=== PATIENT | female | born 1995 | race Caucasian/White ===

== ENCOUNTER 2024-03-18 09:02 | Outpatient (OUT) | payer BC, SELFPAY ==
--- NOTE | 2024-03-18 09:05 | US_ITS ---
[address] [address] Patient Name: FLAKITO TRIVEDI MRN: [id number] date: 1995 Sex: F Assigned Patient Location: [facility] Current Patient Location: [facility] Accession/Order Number: [id number] Exam Date: 03/18/2024 09:05 Report Date: 03/18/2024 09:51 At the request of: BRANDON BOB Procedure: US OB transvaginal EXAMINATION: US OB transvaginal HISTORY: MISSED MENSES COMPARISON: No relevant comparison available. FINDINGS: GESTATIONAL SAC: Present and normal appearing. YOLK SAC: Present and normal appearing. POLE: Present and normal appearing. CARDIAC: Present. UTERUS: Normal size and appearance. OVARIES: Right: Corpus lutein cyst. Left: Normal. CERVIX: 4.6 cm in length and closed. CUL-DE-SAC: Normal. OTHER: None. AGE BY LMP: 8 weeks 1 day SINGH BY LMP: 10/27/2024 AGE BY US CRL: 7 weeks 6 days SINGH BY US CRL: 10/29/2024 US/US OB transvaginal IMPRESSION: 1. Single live intrauterine . Electronically authenticated by: EMILY HANNA Date: 03/18/2024 09:51
== END 2024-03-18 09:03 | disposition home or self-care (01) ==
LOC: NOMS 09:02
PROVIDERS: PCP Family Medicine; Visit Provider Obstetrics & Gynecology
DX: Z34.91 Encounter for supervision of normal pregnancy, unspecified, first trimester (principal); Z3A.08 8 weeks gestation of pregnancy; N92.6 Irregular menstruation, unspecified
CPT/HCPCS: 76817

== ENCOUNTER 2024-05-13 15:11 | Outpatient (OUT) | payer BC, SELFPAY ==
--- OUTSIDE RECORDS SUMMARY | 2024-05-13 15:16 | XMS_ITS | CCD ---
Author Organization [facility] Care Team Providers Care Broke Beater Name Role Phone DR ELEANOR WILEY Primary Care Unavailable NATALIIA INIGUEZ Admitting Unavailable NATALIIA INIGUEZ Consulting Unavailable NATALIIA INIGUEZ Attending Unavailable KRISTEN, DR BEEBE Attending Unavailable DR ELEANOR WILEY Primary Care Unavailable DR CONCEPCIÓN PETERSON Admitting Unavailable DR CONCEPCIÓN PETERSON Consulting Unavailable BILL WORRELL Referring Unavailable RENETTA COLLAZO Attending Unavailable BILL WORRELL Attending Unavailable ISAIAH BANERJEE Attending Unavailable BRANDON BOB Attending Unavailable Problems Active Problems Problem Classification Problem Date Documented Date Episodic/Chronic Immunizations and screening for infectious disease (1 source) Encounter for screening for human papillomavirus (HPV); Translations: [ENC SCREENING HUMAN PAPILLOMAVIRUS] Onset: 11-13-2022 Episodic Other screening for suspected conditions (not mental disorders or infectious disease) (4 sources) Encounter for screening for malignant neoplasm of cervix; Translations: [ENC SCREENING MALIG NEOPLASM CERV] Onset: 11-07-2022 Episodic Unclassified (1 source) Low back pain, unspecified; Translations: [Low back pain, unspecified] Onset: 08-20-2022 Past or Other Problems Problem Classification Problem Date Documented Da te Episodic/Chronic Abdominal pain (4 sources) Unspecified abdominal pain; Translations: [UNSPECIFIED ABDOMINAL PAIN] Onset: 03-15-2022 Episodic Spondylosis; intervertebral disc disorders; other back problems (4 sources) Radiculopathy, lumbar region; Translations: [Sacrococcygeal disorders, not elsewhere classified] Onset: 08-22-2022 Episodic Unclassified (1 source) Low back pain, unspecified; Translations: [Low back pain, unspecified] Onset: 08-20-2022 Results Test Name Value Interpretation Reference Range Facility Refillon 12-02-2022 Refill [id number] Joan Stone 1995 F Date Provider Department Center 12/02/2022 ISAIAH SALAZAR MP [facility] Family History Family Status - Relation Status Age at Mother Alive Father Alive Reason for Visit and Comments: Med Refill [[id number]] Normal [facility] PAP ACOG PANEL 2: 21 to 29on 11-12-2022 . . Normal [facility] Comment on above: Performed By: #### [id number] #### [facility] [address] [address] [address] Asher Renee Age Gdln ACOG Testing 21-29 [facility] Comment on above: Performed By: #### 4 [id number] #### [facility] [address] [place] [address] Dr. Asher Renee DIAGNOSIS: Comment [facility] Comment on above: Result Comment: NEGA TIVE FOR INTRAEPITHELIAL LESION OR MALIGNANCY. Performed By: #### 4 [id number] #### [facility] [address] [place] [address] Dr. Asher Renee Methodology: Comment [facility] Comment on above: Result Comment: This liquid based ThinPrep(R) pap test was screened with the use of an image guided system. Performed By: #### 4 [id number] #### [facility] [address] [place] [address] Dr. Asher Renee Note: Comment [facility] Comment on above: Result Comment: The Pap smear is a screening test designed to aid in the detection of premalignant and malignant conditions of the uterine cervix. It is not a diagnostic procedure and should not be used as the sole means of detecting cervical cancer. Both false-positive and false-negative reports do occur. . Performed By: #### 4 [id number] #### [facility] [address] [place] [address] Dr. Asher Renee Performed by: Comment [facility] Comment on above: Result Comment: Josephine Santiago, Customer Service Trainer (ASCP) Performed By: #### 4 [id number] #### [facility] [address] [place] [address] Dr. Asher Renee Reflex Criteria: Comment Normal [facility] Comment on above: Result Comment: The HPV DNA reflex criteria were not met with this specimen result therefore, no HPV testing was performed. . Performed By: #### 4 [id number] #### [facility] [address] [address] [address] Asher Renee Specimen adequacy: Comment Normal [facility] Comment on above: Result Comment: Sati sfactory for evaluation. No endocervical component is identified. Performed By: #### 4 [id number] #### [facility] [address] [address] [address] Asher Renee 36on 10-28-2022 37 Approving, but needs appt for additional refills. Normal [facility] Follow-Upon 10-07-2022 Follow-Up [id number] Joan Stone 1995 F Provider Department Center 10/07/2022 ISAIAH SALAZAR MP Family History Family Status - Relation Status Age at Mother Alive Father Alive Level of Service:01819 [place] OFFICE/OUTPATIENT ESTABLISHED LOW MDM 20-29 MIN Reason for Visit and Comments: Follow-up [234537] - Pt here for low back pain [facility] 36on 09-22-2022 37 Approving, but needs appt for additional refills. Normal [facility] Procedure Visiton 08-22-2022 Procedure Visit [id number] Joan Stone 1995 Provider Department Center 08/22/2022 RENETTA CHÁVEZ MP Family History Family Status - Relation Status Age at Mother Alive Father Alive Level of Service:22883 [place] OFFICE/OUTPATIENT NEW LOW MDM 30-44 MINUTES (25) Reason for Visit and Comments: Pain [136] - Left SI joint CSI USG Normal [facility] Office Visiton 08-20-2022 Follow-up visit [id number] Joan Stone 1995 F Date Provider Department Center 08/20/2022 260-BILL WORRELL MP Chart Close Cosign Required by: Bill Worrell MD[[id number]] No family history on file Level of Service:89152 [place] OFFICE/OUTPATIENT NEW LOW MDM 30-44 MINUTES (GC) Normal [facility] US OB 1ST Trimesteron 2021 OB 1ST Trimester CLINICAL HISTORY: Pelvic pain. Positive test. Positive beta-hCG. COMPARISON: None available TECHNIQUE: Transabdominal and transvaginal evaluation of the pelvis was performed FINDINGS: Uterus measures 8.6 x 5.2 x 3.4 cm. The endometrium measures 7 mm. No gestational sac, yolk sac, or pole identified. Right ovary is not visualized secondary to bowel gas. The left ovary measures 6 x 5.6 x 4.6 cm. Blood flow is identified of the left ovary. Anechoic area of the left ovary measures 4.3 x 4 x 3.8 cm and is most compatible with a simple ovarian cyst. A small amount of free fluid is present in the pelvis. No adnexal mass. IMPRESSION: No gestational sac identified. Serial beta hCG monitoring and follow-up ultrasound recommended as ectopic is not excluded. 4.3 cm left ovarian cyst. The right ovary is not visualized. Report reported and signed by Ruy Luo on 03/17/2022 1627 Normal [facility] Engine Room Operator CBC AUTO DIFFon 03-15-2022 BASO # 0.0 103/ul Normal 0.0-0.1 [facility] Comment on above: Performed By: #### C BC #### [facility] [address] [address] [address] Asher Renee Basophils/100 WBC (Bld) 0.5 % Normal 0.2-2.[address] [facility] Comment on above: Performed By: #### C BC #### [facility] [address] [address] [address] Asher Renee EO # 0.1 103/ul Normal 0.0-0.[address] [facility] Comment on above: Performed By: #### C BC #### [facility] [address] [address] [address] Asher Renee Eosinophils/100 WBC (Bld) 1.1 % Normal 0.9-7.0 [facility] Comment on above: Performed By: #### C BC #### [facility] [address] [place] [address] Dr. Asher Renee Erythrocyte distribution width (RBC) [Ratio] 12.5 % Normal 11.0-15.0 [facility] Comment on above: Performed By: #### C BC #### [facility] [address] [place] [address] Dr. Asher Renee Hematocrit (Bld) [Volume fraction] 38.8 % Normal 36.0-48.0 [facility] Comment on above: Performed By: #### C BC #### [facility] [address] [place] [address] Dr. Asher Renee Hemoglobin (Bld) [Mass/Vol] 12.8 g/dL Normal 12.0-16.0 [facility] Comment on above: Performed By: #### C BC #### [facility] [address] [place] [address] Dr. Asher Renee IG # 0.02 10e3/ul Normal 0.00-0.03 [facility] Comment on above: Performed By: #### C BC #### [facility] [address] [place] [address] Dr. Asher Renee IG % 0.3 % Normal 0.0-0.5 [facility] Comment on above: Performed By: #### C BC #### [facility] [address] [place] [address] Dr. Asher Renee LYMPH # 1.7 103/ul Normal 1.2-3.[address] [facility] Comment on above: Performed By: #### C BC #### [facility] [address] [place] [address] Dr. Asher Renee Lymphocytes/100 WBC (Bld) 26.2 % Normal 20.5-60.[address] [facility] Comment on above: Performed By: #### C BC #### [facility] [address] [place] [address] Dr. Asher Renee MANUAL DIFF REQ NO Normal [facility] Comment on above: Performed By: #### C BC #### [facility] [address] [place] [address] Dr. Asher Renee MCH (RBC) [Entitic mass] 30.5 pg Normal 26.7-34.0 [facility] Comment on above: Performed By: #### C BC #### [facility] [address] [place] [address] Dr. Asher Renee MCHC (RBC) [Mass/Vol] 33.0 g/dL Normal 29.9-35.2 [facility] Comment on above: Performed By: #### C BC #### [facility] [address] [place] [address] Dr. Asher Renee MCV (RBC) [Entitic vol] 92.4 fL Normal 81.0-99.0 [facility] Comment on above: Performed By: #### C BC #### [facility] [address] [place] [address] Dr. Asher Renee MONO # 0.5 103/ul Normal 0.3-0.8 [facility] Comment on above: Performed By: #### C BC #### [facility] [address] [place] [address] Dr. Asher Renee Monocytes/100 WBC (Bld) 7.4 % Normal 1.7-12.0 [facility] Comment on above: Performed By: #### C BC #### [facility] [address] [place] [address] Dr. Asher Renee NEUT # 4.2 103/ul Normal 1.4-6.5 [facility] Comment on above: Performed By: #### C BC #### [facility] [address] [place] [address] Dr. Asher Renee Neutrophils/100 WBC (Bld) 64.5 % Normal 43.0-75.[address] [facility] Comment on above: Performed By: #### C BC #### [facility] [address] [place] [address] Dr. Asher Renee Platelet mean volume (Bld) [Entitic vol] 10.8 fL Normal 9.5-13.5 [facility] Comment on above: Performed By: #### C BC #### [facility] [address] [place] [address] Dr. Asher Renee PLT 213 103/ul Normal 150-[address] [facility] Comment on above: Performed By: #### C BC #### [facility] [address] [place] [address] Dr. Asher Renee RBC 4.20 106/ul Normal 4.20-5.40 [facility] Comment on above: Performed By: #### C BC #### [facility] [address] [place] [address] Dr. Asher Renee WBC 6.5 103/ul Normal 4.0-11.0 [facility] Comment on above: Performed By: #### C BC #### [facility] [address] [place] [address] Dr. Asher Renee PREG QUANT HCGon 03-15-2022 HCG QUANT 58 mIU/mL Normal [facility] Comment on above: Performed By: #### P REGQNT #### [facility] [address] [place] [address] Dr. Asher Renee HCG RANGE SEE BELOW Normal [facility] Comment on above: Result Comment: 5-50 0-1 WEEK 40-300 1-2 WEEKS 100-1,000 2-3 WEEKS 500-6,000 3-4 WEEKS 5,000-200,000 1-2 MONTHS 10,000-100,000 2-3 MONTHS 3,000-50,000 2ND TRIMESTER 1,000-50,000 3RD TRIMESTER Performed By: #### P REGQNT #### [facility] [address] [place] [address] Dr. Asher Renee PROF CHEM 8 (BAS METB)on Anion gap [Moles/Vol] 11.9 mmol/L Normal [facility] Comment on above: Performed By: #### B MP #### [facility] [address] [place] [address] Dr. Asher Renee Calcium [Mass/Vol] 9.0 mg/dL Normal 8.5-10.1 [facility] Comment on above: Performed By: #### B MP #### [facility] [address] [place] [address] Dr. Asher Renee Chloride [Moles/Vol] 105 mmol/L Normal 98-107 [facility] Comment on above: Performed By: #### B MP #### [facility] [address] [address] [address] Asher Renee CO2 [Moles/Vol] 27.7 mmol/L Normal 21.0-32.0 [facility] Comment on above: Performed By: #### B MP #### [facility] [address] [address] [address] Asher Renee Creatinine [Mass/Vol] 0.55 mg/dL Normal 0.55-1.02 [facility] Comment on above: Performed By: #### B MP #### [facility] [address] [address] [address] Asher Renee EGFR-AF VENEZUELAN >60 Normal >=60 [facility] Comment on above: Performed By: #### B MP #### [facility] [address] [address] [address] Asher Renee EGFR-NON AF VENEZUELAN >60 Normal >=60 [facility] Comment on above: Performed By: #### B MP #### [facility] [address] [address] [address] Asher Renee Glucose [Mass/Vol] 95 mg/dL Normal 74-106 [facility] Comment on above: Performed By: #### B MP #### [facility] [address] [address] [address] Asher Renee Potassium [Moles/Vol] 3.6 mmol/L Normal 3.5-5.[address] [facility] Comment on above: Performed By: #### B MP #### [facility] [address] [address] [address] Asher Renee Sodium [Moles/Vol] 141 mmol/L Normal 136-145 [facility] Comment on above: Performed By: #### B MP #### [facility] [address] [address] [address] Asher Renee Urea nitrogen [Mass/Vol] 10.0 mg/dL Normal 7.0-18.0 [facility] Comment on above: Performed By: #### B MP #### [facility] [address] [place], [place] [address] Dr. Asher Renee Urea nitrogen/Creatinine [Mass ratio] 18.2 mg/mg Normal [facility] Comment on above: Performed By: #### B MP #### [facility] [address] [place], [place] [address] Dr. Asher Renee US RUQon 02-24-2022 US RUQ HISTORY: Elevated bilirubin FINDINGS: The liver is without worrisome mass lesions or biliary dilatation. No neighboring ascites is present. The common bile duct is not dilated, 3 mm in greatest dimension. The gallbladder is without echogenic foci or wall thickening. No pericholecystic fluid is present. The pancreas and right kidney are grossly normal. IMPRESSION: Normal right upper quadrant ultrasound appearance. Report reported and signed by Dimas aVlentino on 02/24/2022 1035 Normal [facility] XR Spine Lumbar Complete w/F jey AND [place] 02-14-2022 XR Spine Lumbar Complete w/Flex AND Ext FINDINGS: Vertebral body heights are normal. Disc space heights are fairly well maintained. Sclerosis involves posterior elements of the mid and distal lumbar spine and sacroiliac joints; however, no spondylolysis or spondylolisthesis is seen. No acute fracture is identified. Soft tissues are relatively unremarkable. Flexion and extension: Normal alignment, no instability. IMPRESSION: 1. Minimal arthritis, normal alignment. 2. No instability. COMMENT: If symptoms persists following appropriate medical management, MRI can evaluate for evidence of pedicle fracture. Report reported and signed by Dimas Valentino on 02/14/2022 1555 Normal [facility] Complete Blood Counton 01-06 Erythrocyte distribution width (RBC) [Ratio] 12.4 % Normal 11.0-15.0 [facility] Comment on above: Performed By: #### T 4, CMP, TSH, LIPD, CBC #### [facility] [address] [place], [place] [id number] Hematocrit (Bld) [Volume fraction] 45.5 % Normal 35.0-47.0 [facility] Comment on above: Performed By: #### T 4, CMP, TSH, LIPD, CBC #### [facility] [address], [place] [id number] Hemoglobin (Bld) [Mass/Vol] 15.1 g/dL Normal 11.6-15.5 [facility] Comment on above: Performed By: #### T 4, CMP, TSH, LIPD, CBC #### [facility] [address] [place], [place] [id number] MCH (RBC) [Entitic mass] 30.3 pg Normal 27.0-33.0 [facility] Comment on above: Performed By: #### T 4, CMP, TSH, LIPD, CBC #### [facility] [address] [place], [place] [id number] MCHC (RBC) [Mass/Vol] 33.2 g/dL Normal 32.0-36.0 [facility] Comment on above: Performed By: #### T 4, CMP, TSH, LIPD, CBC #### [facility] [address] [place], [place] [id number] MCV (RBC) [Entitic vol] 91 fL Normal 80-100 [facility] Comment on above: Performed By: #### T 4, CMP, TSH, LIPD, CBC #### [facility] [address] [place], [place] [id number] Platelet mean volume (Bld) [Entitic vol] 11.30 fL Normal 7.50-12.50 [facility] Comment on above: Performed By: #### T 4, CMP, TSH, LIPD, CBC #### [facility] [address] [place], [place] [id number] Platelets (Bld) [#/Vol] 283 10*3/uL Normal 140-400 [facility] Comment on above: Performed By: #### T 4, CMP, TSH, LIPD, CBC #### [facility] [address] [place], [place] [id number] RBC (Bld) [#/Vol] 4.99 10*6/uL Normal 3.90-5.20 [facility] Comment on above: Performed By: #### T 4, CMP, TSH, LIPD, CBC #### [facility] [address] [place], [place] [id number] RDW-SD 41.5 fL Normal 37.0-50.0 [facility] Comment on above: Performed By: #### T 4, CMP, TSH, LIPD, CBC #### [facility] [address] [place], [place] [id number] WBC (Bld) [#/Vol] 6.1 10*3/uL Normal 3.8-11.0 Johana rn [place] [facility] Comment on above: Performed By: #### T 4, CMP, TSH, LIPD, CBC #### [facility] [address] [place], [place] [id number] Comprehensive Metabolic Pane kamran 01-06-2022 Albumin [Mass/Vol] 5.3 g/dL High 3.6-5.1 Johana rn [place] [facility] Comment on above: Performed By: #### T 4, CMP, TSH, LIPD, CBC #### [facility] [address] [place], [place] [id number] Albumin/Globulin [Mass ratio] 2.1 {ratio} Normal 1.0-2.5 [facility] Operator Comment on above: Performed By: #### T 4, CMP, TSH, LIPD, CBC #### [facility] [address] [place], [place] [id number] ALP [Catalytic activity/Vol] 36 U/L Normal 35-119 [facility] Operator Comment on above: Performed By: #### T 4, CMP, TSH, LIPD, CBC #### [facility] [address] [place], [place] [id number] ALT [Catalytic activity/Vol] 12 U/L Normal 6-33 [facility] Operator Comment on above: Result Comment: 09/25 Female reference range changed. Performed By: #### T 4, CMP, TSH, LIPD, CBC #### [facility] [address] [place], [place] [id number] Anion gap [Moles/Vol] 19 mmol/L Normal 12-20 [facility] Room Operator Comment on above: Result Comment: Effe ctive 10/31/2019 reference range changed. Performed By: #### T 4, CMP, TSH, LIPD, CBC #### [facility] [address] [place], [place] [id number] AST [Catalytic activity/Vol] 14 U/L Normal 9-34 [facility] Comment on above: Performed By: #### T 4, CMP, TSH, LIPD, CBC #### [facility] [address] [place], [place] [id number] Bilirubin [Mass/Vol] 1.22 mg/dL High 0.30-1.20 [facility] Comment on above: Performed By: #### T 4, CMP, TSH, LIPD, CBC #### [facility] [address] [place], [place] [id number] BUN/CREA 18 Ratio Normal 6-22 [facility] Comment on above: Performed By: #### T 4, CMP, TSH, LIPD, CBC #### [facility] [address] [place], [place] [id number] Calcium [Mass/Vol] 9.9 mg/dL Normal 8.6-10.2 [facility] Comment on above: Performed By: #### T 4, CMP, TSH, LIPD, CBC #### [facility] [address] [place], [place] [id number] Chloride [Moles/Vol] 104 mmol/L Normal 98-107 [facility] Comment on above: Performed By: #### T 4, CMP, TSH, LIPD, CBC #### [facility] [address] [place], [place] [id number] CO2 [Moles/Vol] 23 mmol/L Normal 20-31 [facility] Comment on above: Performed By: #### T 4, CMP, TSH, LIPD, CBC #### [facility] [address] [place], [place] [id number] Creatinine [Mass/Vol] 0.6 mg/dL Normal 0.6-1.4 [facility] Comment on above: Performed By: #### T 4, CMP, TSH, LIPD, CBC #### [facility] [address] [place], [place] [id number] eGFRAA 163 mL/min/1.73m2 Normal >60 [facility] Comment on above: Performed By: #### T 4, CMP, TSH, LIPD, CBC #### [facility] [address] [place], [place] [id number] eGFRNAA 135 mL/min/1.73m2 Normal >60 Travis hendricks [place] [facility] Operator Comment on above: Performed By: #### T 4, CMP, TSH, LIPD, CBC #### [facility] [address] [place], [place] [id number] Globulin (S) [Mass/Vol] 2.5 g/dL Normal 1.9-3.7 [facility] Room Operator Comment on above: Performed By: #### T 4, CMP, TSH, LIPD, CBC #### [facility] [address] [place], [place] [id number] Glucose [Mass/Vol] 89 mg/dL Normal 65-99 Johana rn [place] [facility] Comment on above: Result Comment: For FASTING Glucose --- ADA reference ranges: Normal 65-99 mg/dl Prediabetes 100-125 Diabetes >/= 126 Performed By: #### T 4, CMP, TSH, LIPD, CBC #### [facility] [address] [place], [place] [id number] Potassium [Moles/Vol] 4.0 mmol/L Normal 3.5-5.5 [facility] Operator Comment on above: Performed By: #### T 4, CMP, TSH, LIPD, CBC #### [facility] [address] [place], [place] [id number] Protein [Mass/Vol] 7.8 g/dL Normal 6.1-8.1 [place] r[facility] [place] [facility] Comment on above: Performed By: #### T 4, CMP, TSH, LIPD, CBC #### [facility] [address] [place], [place] [id number] Sodium [Moles/Vol] 142 mmol/L Normal 135-146 [facility] [place] [facility] Operator Comment on above: Performed By: #### T 4, CMP, TSH, LIPD, CBC #### [facility] [address] [place], [place] [id number] Urea nitrogen [Mass/Vol] 10 mg/dL Normal 7-25 [facility] Operator Comment on above: Performed By: #### T 4, CMP, TSH, LIPD, CBC #### [facility] [address] [place], [place] [id number] Lipid Panelon 01-06-2022 Cholesterol [Mass/Vol] 175 mg/dL Normal 125-200 [facility] Comment on above: Result Comment: Low risk < 200mg/dL Borderline risk 201-239 mg/dl High risk > or equal to 240 Performed By: #### T 4, CMP, TSH, LIPD, CBC #### [facility] [address] [place], [place] [id number] Cholesterol in HDL [Mass/Vol] 90 mg/dL Normal >40 [facility] Comment on above: Result Comment: High Cardiovascular Risk HDL <40 mg/dL Low Cardiovascular Risk HDL > or equal to 60 mg/dl Performed By: #### T 4, CMP, TSH, LIPD, CBC #### [facility] [address] [place], [place] [id number] Cholesterol in LDL [Mass/Vol] 75 mg/dL Normal [facility] Comment on above: Result Comment: LDL ATP III CLASSIFICATION LDL less than 100 mg/dl Optimal LDL 100-129 mg/dl Near or above optimal LDL 130-159 Borderline high LDL 160-189 High LDL greater than 189 mg/dl Very High Performed By: #### T 4, CMP, TSH, LIPD, CBC #### [facility] [address] [place], [place] [id number] Cholesterol in VLDL [Mass/Vol] 10 mg/dL Normal [facility] Comment on above: Performed By: #### T 4, CMP, TSH, LIPD, CBC #### [facility] [address] [place], [place] [id number] Cholesterol.total/C holesterol in HDL [Mass ratio] 2 {ratio} Normal [facility] Comment on above: Performed By: #### T 4, CMP, TSH, LIPD, CBC #### [facility] [address] [id number] Triglyceride [Mass/Vol] 51 mg/dL Normal 30-150 [facility] Comment on above: Result Comment: TRIG ATPIII CLASSIFICATIONS TRIG less than 150 mg/dl Normal TRIG 150-199 mg/dl Borderline High TRIG 200-500 mg/dl High TRIG greather than 500 mg/dl Very High Performed By: #### T 4, CMP, TSH, LIPD, CBC #### [facility] [address] [facility] [place] [id number] Q - THYROID PEROXIDASE TPO A Bon 01-06-2022 THYROID PEROXIDASE ANTIBODIES <1 Normal <9 [facility] Engine Room Operator Comment on above: Order Comment: [facility] performed at: [employer], [employer] [facility], [address], [address] [place] [address], [address] [place] [address], Core Feeder: Zander Doherty MD [facility] Date/Time: [facility] Results Received Date/Time: [facility] Reported Date/Time: Performed By: #### 3 4F, [id number] #### [facility] Default [address] [place] [address] Q - URINALYSIS,COMPLETEon Appearance (U) TURBID Abnormal CLEAR [facility] Specialist Comment on above: Order Comment: [facility] performed at: [employer], [employer] [facility], [address], [address] [place] [address], [address] [place] [address], Core Feeder: Zander Doherty MD [facility] Date/Time: [facility] Results Received Date/Time: [facility] Reported Date/Time: Performed By: #### 3 4F, [id number] #### [facility] Default [address] [place] [address] BACTERIA NONE SEEN Normal NONE SEEN [facility] Engine Room Operator Comment on above: Order Comment: [facility] performed at: [employer], [employer] [facility], [address] , [address] [place] [address], [address] [place] [address], Core Feeder: Zander Doherty MD [facility] Date/Time: [facility] Results Received Date/Time: [facility] Reported Date/Time: Performed By: #### 3 4F, [id number] #### [facility] Default [address] [place] [address] Bilirubin Ql (U) Negative Normal NEGATIVE [facility] Engine Room Operator Comment on above: Order Comment: [facility] performed at: [employer], [employer] [facility], [address], [address] [place] [address], [address] [place] [address], Core Feeder: Zander Doherty MD [facility] Date/Time: [facility] Results Received Date/Time: [facility] Reported Date/Time: Performed By: #### 3 4F, [id number] #### [facility] Default [address] [place] [address] CALCIUM OXALATE CRYSTALS MODERATE Abnormal NONE OR FEW [facility] Engine Room Operator Comment on above: Order Comment: [facility] performed at: [employer], [employer] [facility], [address], [address] [place] [address], [address] [place] [address], Core Feeder: Zander Doherty MD [facility] Date/Time: [facility] Results Received Date/Time: [facility] Reported Date/Time: Performed By: #### 3 4F, [id number] #### [facility] [address] [place] [address] Color (U) DARK YELLOW Normal YELLOW [facility] Engine Room Operator Comment on above: Order Comment: [facility] performed at: [employer], [employer] [facility], [address], [address] [place] [address], [address] [place] [address], Core Feeder: Zander Doherty MD [facility] Date/Time: [facility] Results Received Date/Time: [facility] Reported Date/Time: Performed By: #### 3 4F, [id number] #### [facility] Default [address] [place] [address] Glucose Ql (U) Negative Normal NEGATIVE [facility] Engine Room Operator Comment on above: Order Comment: [facility] performed at: [employer], [employer] [facility], [address], [address] [place] [address], [address] [place] [address], Core Feeder: Zander Doherty MD [facility] Date/Time: [facility] Results Received Date/Time: [facility] Reported Date/Time: Performed By: #### 3 4F, [id number] #### [facility] Default [address] [place] [address] HYALINE CAST NONE SEEN Normal NONE SEEN [facility] Engine Room Operator Comment on above: Order Comment: [facility] performed at: [facility], [employer] [facility], [address], [address] [place] [address], [address] [place] [address], Core Feeder: Zander Doherty MD [facility] Date/Time: [facility] Results Received Date/Time: [facility] Reported Date/Time: Performed By: #### 3 4F, [id number] #### [facility] Default [address] [place] [address] Ketones Ql (U) TRACE Abnormal NEGATIVE [facility] Engine Room Operator Comment on above: Order Comment: [facility] performed at: [employer], [employer] [facility], [address], [address] [place] [address], [address] [place] [address], Core Feeder: Zander Doherty MD [facility] Date/Time: [facility] Results Received Date/Time: [facility] Reported Date/Time: Performed By: #### 3 4F, [id number] #### [facility] Default [address] [place] [address] Leukocyte esterase Test strip Ql (U) Negative Normal NEGATIVE [facility] Engine Room Operator Comment on above: Order Comment: [facility] performed at: [facility], [employer] [facility], [address], [address] [place] [address], [address] [place] [address], Core Feeder: Zander Doherty MD [facility] Date/Time: [facility] Results Received Date/Time: [facility] Reported Date/Time: Performed By: #### 3 4F, [id number] #### [facility] Default [address] [place] [address] Nitrite Ql (U) Negative Normal NEGATIVE [facility] Engine Room Operator Comment on above: Order Comment: [facility] performed at: [facility], [employer] [facility], [address], [address] [place] [address], [address] [place] [address], Core Feeder: Zander Doherty MD [facility] Date/Time: [facility] Results Received Date/Time: [facility] Reported Date/Time: Performed By: #### 3 4F, [id number] #### [facility] Default [address] [place] [address] OCCULT BLOOD Negative Normal NEGATIVE [facility] Engine Room Operator Comment on above: Order Comment: [facility] performed at: [employer], [employer] [facility], [address], [address] [place] [address], [address] [place] [address], Core Feeder: Zander Doherty MD [facility] Date/Time: [facility] Results Received Date/Time: [facility] Reported Date/Time: Performed By: #### 3 4F, [id number] #### [facility] Default [address] [place] [address] pH (U) 5.5 [pH] Normal 5.0-8.0 [facility] Engine Room Operator Comment on above: Order Comment: [facility] performed at: [employer], [employer] [facility], [address] , [address] [place] [address], [address] [place] [address], Core Feeder: Zander Doherty MD [facility] Date/Time: [facility] Results Received Date/Time: [facility] Reported Date/Time: Performed By: #### 3 4F, [id number] #### [facility] Default [address] [place] [address] Protein Ql (U) TRACE Abnormal NEGATIVE [facility] Engine Room Operator Comment on above: Order Comment: [facility] performed at: [employer], [employer] [facility], [address], [address] [place] [address], [address] [place] [address], Core Feeder: Zander Doherty MD [facility] Date/Time: [facility] Results Received Date/Time: [facility] Reported Date/Time: Performed By: #### 3 4F, [id number] #### [facility] Default [address] [place] [address] RBC NONE SEEN Normal < OR = 2 [facility] Engine Room Operator Comment on above: Order Comment: [facility] performed at: [employer], [employer] [facility], [address] [facility], [address] [place] [address], [address] [place] [address], Core Feeder: Zander Doherty MD [facility] Date/Time: [facility] Results Received Date/Time: [facility] Reported Date/Time: Performed By: #### 3 4F, [id number] #### [facility] Default [address] [place] [address] Specific gravity (U) [Rel density] 1.034 Normal 1.001-1.035 [facility] Engine Room Operator Comment on above: Order Comment: [facility] performed at: [employer], [employer] [facility], [address], [address] [place] [address], [address] [place] [address], Core Feeder: Zander Doherty MD [facility] Date/Time: [facility] Results Received Date/Time: [facility] Reported Date/Time: Performed By: #### 3 4F, [id number] #### [facility] Default [address] [place] [address] SQUAMOUS EPITHELIAL CELLS 0-5 Normal < OR = 5 [facility] Engine Room Operator Comment on above: Order Comment: [facility] performed at: [employer], [employer] [facility], [address], [address] [place] [address], [address] [place] [address], Core Feeder: Zander Doherty MD [facility] Date/Time: [facility] Results Received Date/Time: [facility] Reported Date/Time: Performed By: #### 3 4F, [id number] #### [facility] Default [address] [place] [address] WBC NONE SEEN Normal < OR = 5 [facility] Engine Room Operator Comment on above: Order Comment: [facility] performed at: [employer], [employer] [facility], [address], [address] [place] [address], [address] [place] [address], Core Feeder: Zander Doherty MD [facility] Date/Time: [facility] Results Received Date/Time: [id number] [facility] Reported Date/Time: Performed By: #### 3 4F, [id number] #### [facility] Default [address] [place] [address] TSHon 01-06-2022 TSH 0.208 uIU/mL Low 0.400-4.500 [facility] Engine Room Operator Comment on above: Performed By: #### T 4, CMP, TSH, LIPD, CBC #### [facility] [address] [place], [place] [id number] Total T4on 01-06-2022 T4 [Mass/Vol] 7.9 ug/dL Normal 4.5-11.7 [facility] Engine Room Operator Comment on above: Performed By: #### T 4, CMP, TSH, LIPD, CBC #### [facility] [address] [place], [place] [id number] US Thyroidon 01-06-2022 US Thyroid FINDINGS: Right Lobe: 4.9 x 1.5 x 1.6 cm Left Lobe: 4.4 x 1.4 x 1.3 cm Isthmus (Thickness)2mm Normal echotexture involves the thyroid gland. No significant enlargement is identified. No suspicious cystic or solid mass lesions are seen. IMPRESSION: Normal thyroid ultrasound. RECOMMENDATIONS CANCER RISK (ACR TI-RADS 2018) TR1: no FNA required TR1: 0.3% TR2: no FNA required TR2: 1.5 % TR3>: 1.5 cm follow up, >2.5 cm FNA TR3: 4.8 % Follow up 1, 3, 5 years TR4:>1.0 cm follow up >1.5 cm FNA TR4: 9.1 % Follow up: 1, 2, 3 and 5 years TR5:> 0.5 cm follow up, >1.0 cm FNA TR5: 35% Annual follow up for up to 5 years Biopsy is recommended for suspicious lesions (TR3-TR5) with the above size criteria. If there are multiple nodules, the two with the highest ACR TI-RADS grades should be sampled (rather than the two largest) Interval enlargement on follow up is felt to be significant if there is a increase of 20% and 2 mm in two dimensions, or a 50% increase in volume. If the ACR TI-RAD level increases between scans, and interval scan the following year is again recommended. Report reported and signed by Dimas Valentino on 01/07/2022 1021 Normal [facility] Engine Room Operator Encounters Encounter Date Encounter Type Care Provider Facility Start: 04-18-2024 End: 04-18-2024 ambulatory BRANDON BOB Not Available Start: 03-18-2024 End: 03-18-2024 ambulatory BRANDON BOB Not Available Start: 11-07-2022 End: 11-07-[address] CONCEPCIÓN PETERSON Facility:[facility] Start: 10-07-2022 End: 10-10-2022 ambulatory ISAIAH BANERJEE [facility] Start: 08-22-2022 ambulatory RENETTA COLLAZO [facility] Start: 08-20-2022 End: 08-21-2022 ambulatory BILL WORRELL [facility] Start: 03-15-2022 End: 03-15-[address] ELEANOR WILEY Facility:[facility] Payers Date Payer Category Payer Unknown [id number] 1996 Unknown [id number] [id number] [id number] 1996 Unknown [id number] 2.16.84 [id number] 1996 Unknown [id number] 2.16.84 [id number] 1996 Unknown [id number] 2.16.84 [id number] 1959 Medicaid [id number] 1958 Unknown [id number] Progress note 10-07-2022 Note Date & Type Note Facility 10-07-2022 Note Orthopedic Surgery Subjective Chief complaint: Chief Complaint Patient presents with Lower Back - Follow-up Pt here for low back pain 10/07/22 Joan Stone is a 27 y.o. year old female here in follow up after recent SI joint injection. Reports injection helped her pain for approx 3 wks. Patient states that she has a remote history of falling while playing soccer on her tailbone approximately 9 years ago which subsequently resulted in her having pain in her low back and coccyx/sacrum region. Patient states that she was never evaluated at that time. Patient also states that she had worsening low back pain after giving to her daughter proximately 4 years ago. Patient states that several months ago she started again having worsening back pain without any inciting event.Patient states that she had intermittent episodes of pain radiating around her low back to her knees worse on the left side. Patient had undergone physical therapy after being seen by an outside physician. Patient states that physical therapy had helped her but she continues to have pain. Patient states that her pain fluctuates day-to-day but says it ranges from 4-6 out of 10 in nature. Today the patient states that she does not have any radiating pain down her legs and her pain is localized mostly in her back. Patient has taken Tylenol for pain with no relief and is occasionally taking ibuprofen. Patient states that she does not have any changes in her bowel and bladder and denies any symptoms of weakness. 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 Patient History Past Surgical History: Procedure Laterality Date SECTION, CLASSIC TONSILLECTOMY History reviewed. No pertinent past medical history. Objective Lumbar spine: -Tender to palpation toLeft paraspinal musculature and SI joint -Patient has no tenderness to palpation to spinous processes or right SI joint -Patient has full range of motion of hip flexion and extension, Bilateral knee extension, knee flexion, ankle dorsiflexion, ankle plantarflexion, EHL/FHL -Patient has negative LEON, she does have pain and positive FADIR bilaterally - Negative straight leg raise bilaterally - Patient hasSensation intact L2-S1 nerve distributions bilaterally -Bilateral extremities warm and well-perfused Imaging personally reviewed: MRI was interpreted today showing mild LS-S1 disc bulge, edema in facet joint L4-5 Assessment/Plan 1. Lumbar radiculopathy - gabapentin (Neurontin) 300 mg capsule; Take 1 capsule (300 mg) by mouth in the morning, at noon, and at bedtime. Dispense: 90 capsule; Refill: 0 - Ambulatory referral to Chiropractic; Future Plan: PT/chiropractic therapy Start Neurontin F/U 3 months [facility] Progress note 08-22-2022 Note Date & Type Note Facility 10-28-2022 Note Sports Medicine Subj ective Pain of the Lower Back (Left SI joint CSI USG) HPI: Joan Stone is a 27 y.o. year old female referred by Dr. Worrell for evaluation for possible US guided injection of the Left SI joint injection. Pt reports pain X 5 years worse during with daughter. Rates current pain as: 4-5 /10 Currently taking Ibuprofen intermittently. PT- last completed about 4-5 months ago Prior Injections: no prior injections of the Left SI joint Blood thinners: denies Allergy to Anesthetics: denies Hx of diabetes: denies Review of Systems: ROS as noted in the HPI Patient History No past surgical history on file. No past medical history on file. Objective Physical Exam: General: No acute distress Cardiac: Regular rate Respiratory: Non-labored respirations, No audible wheezing Skin: Warm and dry Neurologic: Alert and oriented, no focal deficits Musculoskeletal: No obvious erythema, ecchymosis or asymmetry. Tenderness to palpation over the left SI joint. No midline tenderness. Full range of motion of the lumbar spine, some mild discomfort localized to the left SI joint with extension. 5/5 With resisted knee flexion and extension. Positive with FADIR Mild pain with LEON Positive SI joint loading Negative SLR Sensation: Intact and equal bilaterally Procedure: PROCEDURE NOTE: US guided Left Sacroiliac joint injection: We reviewed the procedure of Ultrasound Guided SI joint injection and discussed the risks, benefits, and alternative treatments. Verbal and written consent was obtained. I verified that the patient had no allergies to local anesthetic. We discussed the potential side effects of corticosteroids. After verification of correct position and side, using a curved ultrasound probe, images were taken over the SI joint throughout the procedure to ensure proper placement of the injection. The SI joint was marked and then prepped in the usual sterile fashion. Ethyl Chloride was used to provide superficial anesthesia, and then under direct ultrasound guidance using a 22 g 3 inch needle 4 mL of 1% lidocaine and 1mL of Kenalog 40mg/mL was injected into the joint space without difficulty. After injection, Hemostasis was attained and a sterile dressing was applied. The patient tolerated the procedure well without any complications and noted improvement in pain. Assessment/Plan Pain of left sacroiliac joint - Discussed options with patient including an US guided injection of the left sacroiliac joint. - After discussion of risks, benefits, and alternative treatments, pt decided to proceed with the US guided injection. - Pt tolerated the procedure well with no complications and had improvement of pain, after injection. - Will have pt follow up in 6 weeks. - Patient agreeable with above plan, all questions answered in the office. Strict return precautions and red flag symptoms reviewed with patient and pt verbalized understanding. Strict return precautions and red flag symptoms reviewed with patient. Patient verbalized understanding. All questions answered in the office. Renetta Collazo MD, [facility] Progress note 08-20-2022 Note Date & Type Note Facility 08-20-2022 Note -------- Attestation signed by Bill Worrell MD at 08/20/2022 4:45 PM I personally saw and examined the patient on the same date of service as resident. I discussed the findings and therapeutic plan with the resident. I agree with the documentation, except for any edits/updates below. Teaching Physician's Revisions: None -------- Orthopedic Surgery Subjective Chief complaint: No chief complaint on file. 08/20/22 Joan Stone is a 27 y.o. year old female New patient who presents to the clinic for evaluation of low back pain. Patient states that she has a remote history of falling while playing soccer on her tailbone approximately 9 years ago which subsequently resulted in her having pain in her low back and coccyx/sacrum region. Patient states that she was never evaluated at that time. Patient also states that she had worsening low back pain after giving to her daughter proximately 4 years ago. Patient states that several months ago she started again having worsening back pain without any inciting event.Patient states that she had intermittent episodes of pain radiating around her low back to her knees worse on the left side. Patient had undergone physical therapy after being seen by an outside physician. Patient states that physical therapy had helped her but she continues to have pain. Patient states that her pain fluctuates day-to-day but says it ranges from 4-6 out of 10 in nature. Today the patient states that she does not have any radiating pain down her legs and her pain is localized mostly in her back. Patient has taken Tylenol for pain with no relief and is occasionally taking ibuprofen. Patient states that she does not have any changes in her bowel and bladder and denies any symptoms of weakness. 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 Patient History No past surgical history on file. No past medical history on file. Objective Lumbar spine: -Tender to palpation toLeft paraspinal musculature and SI joint -Patient has no tenderness to palpation to spinous processes or right SI joint -Patient has full range of motion of hip flexion and extension, Bilateral knee extension, knee flexion, ankle dorsiflexion, ankle plantarflexion, EHL/FHL -Patient has negative LEON, she does have pain and positive FADIR bilaterally - Negative straight leg raise bilaterally - Patient hasSensation intact L2-S1 nerve distributions bilaterally -Bilateral extremities warm and well-perfused Imaging personally reviewed: X-ray from outside facility was obtained and x-ray report was sent with the patient. Of note x-ray was not personally interpreted however MRI reviewed patient to have normal alignment without any listhesis, fractures or dislocations. There is no osseous abnormalities noted. Patient had mild arthritic changes within SI joint as seen by sclerosis. Normal alignment. MRI for loss of city was obtained and report was sent with the patient. Of note MRI was not personally interpreted however MRI results demonstrate patient have a mild paracentral disc herniation at L5 S1. Mild facet arthropathy at L5-S1. Mild to moderate bilateral facet arthropathy at L4-5. Assessment/Plan Joan Stone is a 27 y.o. year old female with Low back pain -Recommend patient to get a diagnostic corticosteroid injection to her left sacroiliac joint by Dr. River as pain can be radiating from SI joint with noted mild arthritis and SI on x-ray. - mobic - follow up in 6 weeks for repeat clinical evaluation Lumbar pain [M54.50] Return to Clinic 6 weeks Kolby Barakat MD Orthopedic Surgery, PGY-2 08/20/22 4:41 PM By using the attestations below, the signing clinician agrees that I have read and verify that the documentation has been personally reviewed by me and ensure that the documentation accurately reflects the encounter. Office Visit Attestation GC: I personally saw this patient on the day of the encounter, performed the bruno portion(s) of the service and participated in the management and confirm the resident's documentation. Please note there may be an additional personal documentation from me. [facility] Clinical Note 05-16-2022 Note Date & Type Note Facility 05-16-2022 Note HISTORY: Left sided pain and tingling PROCEDURE: [employer] HDXT 1.5. Sagittal T1, T2, STIR and axial T1 and T2 contiguous and cone down images through the lumbar spine were performed without contrast administration. FINDINGS: Normal lumbar vertebral body height and alignment. No vertebral body or posterior element edema. No fracture. No significant soft tissue inflammation. Normal conus medullaris and filum terminale. Unremarkable paravertebral soft tissues. T12/L1 - L3/4: Normal. L4/5: Normal disc volume. No disc herniation, spinal canal or neural foraminal stenosis. Mild to moderate bilateral facet arthropathy. L5/S1: Normal alignment. Mild disc bulging. Small left paracentral disc herniation. Mild facet arthropathy. No spinal canal or neural foraminal stenosis. IMPRESSION: Mild distal lumbar arthritis (facet arthropathy). No significant spinal canal or neural foraminal stenosis. Report reported and signed by Dimas Valentino on 05/19/2022 1134 [facility] Engine Room Operator Summary Purpose Family History No Family History Records FoundNo Family History Records FoundNo Family History Records FoundNo Family History Records Found Advance Directives No Advanced Directives Records FoundNo Advanced Directives Records FoundNo Advanced Directives Records FoundNo Advanced Directives Records Found Additional Source Comments INFORMATION SOURCE (unrecogn ized section and content) DATE CREATED AUTHOR 05/19/2022 [facility] DATE CREATED AUTHOR AUTHOR'S ORGANIZ ATION 11/18/2022 [facility] DATE CREATED AUTHOR AUTHOR'S ORGANIZ ATION 02/07/2023 [facility] DATE CREATED AUTHOR AUTHOR'S ORGANRAAD ATION 04/18/2024 [facility] EPIC FOR RECORDS PERTAINING TO PATIENTS WHO ARE OR HAVE BEEN ENROLLED IN A CHEMICAL DEPENDENCY/SUBSTANCEABUSE PROGRAM, SOME INFORMATION MAY BE OMITTED. This clinical summary was aggregated from multiple sources. Caution should be exercised in using it in the provision of clinical care. This summary normalizes information from multiple sources, and as a consequence, information in this document may materially change the coding, format and clinical context of patient data. In addition, data may be omitted in some cases. CLINICAL DECISIONS SHOULD BE BASED ON THE PRIMARY CLINICAL RECORDS. [employer] [facility]. provides no warranty or guarantee of the accuracy or completeness of information in this document.
[2024-05-13 15:31] LABS: Basophils Percent Auto 0.1 % (0.2-2.0); Eosinophils Absolute Auto 0.1 10^3/uL (0.0-0.7); Eosinophils Percent Auto 0.9 % (0.9-7.0); Hemoglobin 13.1 g/dL (12.0-16.0); Immature Granulocytes Abs Auto 0.03 10^3/uL (0.00-0.03); Immature Granulocytes Pct Auto 0.3 % (0.0-0.5); Lymphocytes Absolute Auto 1.5 10^3/uL (1.2-3.8); Lymphocytes Percent Auto 16.1 % (20.5-60.0); Mean Corpuscular HGB Conc 34.5 g/dL (29.9-35.2); Mean Corpuscular Hemoglobin 30.3 pg (26.7-34.0); Mean Platelet Volume 10.3 fL (9.5-13.5); Monocytes Absolute Auto 0.4 10^3/uL (0.3-0.8); Neutrophils Absolute Auto 7.3 10^3/uL (1.4-6.5); Neutrophils Percent Auto 78.6 % (43.0-75.0); Platelet Count 221 10^3/uL (150-450); Red Blood Count 4.32 10^6/uL (4.20-5.40); Red Cell Distribution Width 12.6 % (11.0-15.0); White Blood Count 9.3 10^3/uL (4.0-11.0)
[2024-05-13 15:48] LABS: Estimated Average Glucose 103 mg/dL; Glycohemoglobin A1C 5.2 % (4.5-6.2)
[2024-05-15 08:09] LABS: HBsAg Screen Negative (Negative)
[2024-05-15 09:08] LABS: HCV Ab Non Reactive (Non Reactive); HIV Ab/p24 Ag Screen Non Reactive (Non Reactive)
[2024-05-15 10:08] LABS: Rubella Antibodies, IgG 1.14 index (Immune >0.99)
[2024-05-15 12:10] LABS: Rapid Plasma Reagin, Quant Non Reactive titer (NonRea<1:1)
== END 2024-05-13 15:12 | disposition home or self-care (01) ==
LOC: LAB 15:11
PROVIDERS: PCP Family Medicine; Visit Provider Obstetrics & Gynecology
DX: N92.6 Irregular menstruation, unspecified (principal)
CPT/HCPCS: 36415; 83036; 85025; 86592; 86762; 86803; 86850; 86900; 86901; 87086; 87340; 87389

== ENCOUNTER 2024-05-16 18:35 | Outpatient (REF) | payer BC, SELFPAY ==
--- OUTSIDE RECORDS SUMMARY | 2024-05-16 18:43 | XMS_ITS | CCD ---
Author Organization [facility] Care Team Providers Care Cementer Hand Name Role Phone DR ELEANOR WILEY Primary Care Unavailable NATALIIA INIGUEZ Admitting Unavailable NATALIIA INIGUEZ Consulting Unavailable NATALIIA INIGUEZ Attending Unavailable KRISTEN, DR BEEEB Attending Unavailable DR ELEANOR WILEY Primary Care [...] Interpretation Reference Range Facility [facility] 12-02-2022 Refill [id number] Joan Stone 1995 F Date Provider Department Center 12/02/2022 ISAIAH SALAZAR MP [facility] Family History Family Status - Relation Status Age at Mother Alive Father Alive Reason for Visit and Comments: Med Refill [[id number]] Normal [facility] PAP ACOG PANEL 2: 21 to 29on 11-12-2022 . . Normal [facility] Comment on above: Performed By: #### 4 [id number] #### [facility] [address] [address] [address] Asher Renee Age Gdln ACOG Testing 21-29 [facility] Comment on above: Performed By: #### 4 [id number] #### [facility] [address] [place] [address] Dr. Asher Renee DIAGNOSIS: Comment [facility] Comment on above: Result Comment: NEGA TIVE FOR INTRAEPITHELIAL LESION OR MALIGNANCY. Performed By: #### 4 [id number] #### [facility] [address] [place] [address] Dr. Asher Renee Methodology: Comment [facility] Comment on above: Result Comment: This liquid based ThinPrep(R) pap test was screened with the use of an image guided system. Performed By: #### 4 [id number] #### [facility] [address] [place] [address] Dr. Asher Renee Note: Comment [facility] Comment on above: Result Comment: The Pap smear is a screening test designed to aid in the detection of premalignant and malignant conditions of the uterine cervix. It is not a diagnostic procedure and should not be used as the sole means of detecting cervical cancer. Both false-positive and false-negative reports do occur. . Performed By: #### 4 [id number] #### [facility] [address] [place] [address] Dr. Asher Renee Performed by: Comment [facility] Comment on above: Result Comment: Josephine Santiago, Director Of Accounting (ASCP) Performed By: #### 4 [id number] #### [facility] [address] [place] [address] Dr. Asher Renee Reflex Criteria: Comment Normal [facility] Comment on above: Result Comment: The HPV DNA reflex criteria were not met with this specimen result therefore, no HPV testing was performed. . Performed By: #### 4 [id number] #### [facility] [address] [address] [address] Asher Renee Specimen adequacy: Comment Normal [facility] Comment on above: Result Comment: Sati sfactory for evaluation. No endocervical component is identified. Performed By: #### 4 [id number] #### [facility] [address] [address] [address] Asher Renee 36on 10-28-2022 36 Approving, but needs appt for additional refills. Normal [facility] Follow-Upon 10-07-2022 Follow-Up [id number] Joan Stone 1995 F Provider Department Center 10/07/2022 ISAIAH SALAZAR MP Family History Family Status - Relation Status Age at Mother Alive Father Alive Level of Service:60479 [place] OFFICE/OUTPATIENT ESTABLISHED LOW MDM 20-29 MIN Reason for Visit and Comments: Follow-up [996472] - Pt here for low back pain [facility] 36on 09-22-2022 37 Approving, but needs appt for additional refills. Normal [facility] Procedure Visiton 08-22-2022 Procedure Visit [id number] Joan Stone 1995 Provider Department Center 08/22/2022 RENETTA CHÁVEZ MP Family History Family Status - Relation Status Age at Mother Alive Father Alive Level of Service:18186 [place] OFFICE/OUTPATIENT NEW LOW MDM 30-44 MINUTES (25) Reason for Visit and Comments: Pain [136] - Left SI joint CSI USG Normal [facility] Office Visiton 08-20-2022 Follow-up visit [id number] Joan Stone 1995 F Date Provider Department Center 08/20/2022 260-BILL WORRELL MP Chart Close Cosign Required by: Bill Worrell MD[[id number]] No family history on file Level of Service:76850 [place] OFFICE/OUTPATIENT NEW LOW MDM 30-44 MINUTES (GC) Normal [facility] US OB 1ST Trimesteron 2021 OB 1ST [...] by Ruy Luo on 03/17/2022 1627 Normal [facility] CBC AUTO DIFFon 03-15-2022 BASO # 0.0 103/ul Normal 0.0-0.1 [facility] Comment on above: Performed By: #### C BC #### [facility] [address] [address] [address] Asher Renee Basophils/100 WBC (Bld) 0.5 % Normal 0.2-2.0 The [facility] Comment on above: Performed By: #### C BC #### [facility] [address] [address] [address] Asher Renee EO # 0.1 103/ul Normal 0.0-0.7 The [facility] Comment on above: Performed By: #### C BC #### [facility] [address] [address] [address] Asher Renee Eosinophils/100 WBC (Bld) 1.1 % Normal 0.9-7.0 [facility] Comment on above: Performed By: #### C BC #### [facility] [address] [place] [address] Dr. Asher Renee Erythrocyte distribution width (RBC) [Ratio] 12.5 % Normal 11.0-15.0 [facility] Comment on above: Performed By: #### C BC #### [facility] [address] [place] [address] Dr. Asher Renee Hematocrit (Bld) [Volume fraction] 38.8 % Normal 36.0-48.0 [facility] Comment on above: Performed By: #### C BC #### [facility] [address] [place] [address] Dr. Asher Renee Hemoglobin (Bld) [Mass/Vol] 12.8 g/dL Normal 12.0-16.0 [facility] Comment on above: Performed By: #### C BC #### [facility] [address] [place] [address] Dr. Asher Renee IG # 0.02 10e3/ul Normal 0.00-0.03 [facility] Comment on above: Performed By: #### C BC #### [facility] [address] [place] [address] Dr. Asher Renee IG % 0.3 % Normal 0.0-0.5 [facility] Comment on above: Performed By: #### C BC #### [facility] [address] [place] [address] Dr. Asher Renee LYMPH # 1.7 103/ul Normal 1.2-3.8 The [facility] Comment on above: Performed By: #### C BC #### [facility] [address] [place] [address] Dr. Asher Renee Lymphocytes/100 WBC (Bld) 26.2 % Normal 20.5-60.0 The [facility] Comment on above: Performed By: #### C BC #### [facility] [address] [place] [address] Dr. Asher Renee MANUAL DIFF REQ NO Normal [facility] Comment on above: Performed By: #### C BC #### [facility] [address] [place] [address] Dr. Asher Renee MCH (RBC) [Entitic mass] 30.5 pg Normal 26.7-34.0 [facility] Comment on above: Performed By: #### C BC #### [facility] [address] [place] [address] Dr. Asher Renee MCHC (RBC) [Mass/Vol] 33.0 g/dL Normal 29.9-35.2 [facility] Comment on above: Performed By: #### C BC #### [facility] [address] [place] [address] Dr. Asher Renee MCV (RBC) [Entitic vol] 92.4 fL Normal 81.0-99.0 [facility] Comment on above: Performed By: #### C BC #### [facility] [address] [place] [address] Dr. Asher Renee MONO # 0.5 103/ul Normal 0.3-0.8 [facility] Comment on above: Performed By: #### C BC #### [facility] [address] [place] [address] Dr. Asher Renee Monocytes/100 WBC (Bld) 7.4 % Normal 1.7-12.0 [facility] Comment on above: Performed By: #### C BC #### [facility] [address] [place] [address] Dr. Asher Renee NEUT # 4.2 103/ul Normal 1.4-6.5 [facility] Comment on above: Performed By: #### C BC #### [facility] [address] [place] [address] Dr. Asher Renee Neutrophils/100 WBC (Bld) 64.5 % Normal 43.0-75.0 The [facility] Comment on above: Performed By: #### C BC #### [facility] [address] [place] [address] Dr. Asher Renee Platelet mean volume (Bld) [Entitic vol] 10.8 fL Normal 9.5-13.5 [facility] Comment on above: Performed By: #### C BC #### [facility] [address] [place] [address] Dr. Asher Renee PLT 213 103/ul Normal 150-450 [facility] Comment on above: Performed By: #### C BC #### [facility] [address] [place] [address] Dr. Asher Renee RBC 4.20 106/ul Normal 4.20-5.40 [facility] Comment on above: Performed By: #### C BC #### [facility] [address] [place] [address] Dr. Asher Renee WBC 6.5 103/ul Normal 4.0-11.0 [facility] Comment on above: Performed By: #### C BC #### [facility] [address] [place] [address] Dr. Asher Renee PREG QUANT HCGon 03-15-2022 HCG QUANT 58 mIU/mL Normal [facility] Comment on above: Performed By: #### P REGQNT #### [facility] [address] [place] [address] Dr. Asher Renee HCG RANGE SEE BELOW Normal [facility] Comment on above: Result Comment: 5-50 0-1 WEEK 40-300 1-2 WEEKS 100-1,000 2-3 WEEKS 500-6,000 3-4 WEEKS 5,000-200,000 1-2 MONTHS 10,000-100,000 2-3 MONTHS 3,000-50,000 2ND TRIMESTER 1,000-50,000 3RD TRIMESTER Performed By: #### P REGQNT #### [facility] [address] [place] [address] Dr. Asher Renee PROF CHEM 8 (BAS METB)on Anion gap [Moles/Vol] 11.9 mmol/L Normal [facility] Comment on above: Performed By: #### B MP #### [facility] [address] [place] [address] Dr. Asher Renee Calcium [Mass/Vol] 9.0 mg/dL Normal 8.5-10.1 [facility] Comment on above: Performed By: #### B MP #### [facility] [address] [place] [address] Dr. Asher Renee Chloride [Moles/Vol] 105 mmol/L Normal 98-107 [facility] Comment on above: Performed By: #### B MP #### [facility] [address] [address] [address] Asher Renee CO2 [Moles/Vol] 27.7 mmol/L Normal 21.0-32.0 [facility] Comment on above: Performed By: #### B MP #### [facility] [address] [address] [address] Asher Renee Creatinine [Mass/Vol] 0.55 mg/dL Normal 0.55-1.02 [facility] Comment on above: Performed By: #### B MP #### [facility] [address] [address] [address] Asher Renee EGFR-AF IRANIAN >60 Normal >=60 [facility] Comment on above: Performed By: #### B MP #### [facility] [address] [address] [address] Asher Renee EGFR-NON AF IRANIAN >60 Normal >=60 [facility] Comment on above: Performed By: #### B MP #### [facility] [address] [address] [address] Asher Renee Glucose [Mass/Vol] 95 mg/dL Normal 74-106 [facility] Comment on above: Performed By: #### B MP #### [facility] [address] [address] [address] Asher Renee Potassium [Moles/Vol] 3.6 mmol/L Normal 3.5-5.1 The [facility] Comment on above: Performed By: #### B MP #### [facility] [address] [address] [address] Asher Renee Sodium [Moles/Vol] 141 mmol/L Normal 136-145 [facility] Comment on above: Performed By: #### B MP #### [facility] [address] [address] [address] Asher Renee Urea nitrogen [Mass/Vol] 10.0 mg/dL Normal 7.0-18.0 [facility] Comment on above: Performed By: #### B MP #### [facility] [address] [place], [place] [address] Dr. Asher Renee Urea nitrogen/Creatinine [Mass ratio] 18.2 mg/mg Normal [facility] Comment on above: Performed By: #### B MP #### [facility] [address] [place], [place] [address] Dr. Asher Renee US RUQon 02-24-2022 US [...] appearance. Report reported and signed by Dimas Valentino on 02/24/2022 1035 Normal [facility] XR Spine Lumbar Complete w/F jey AND [place] 02-14-2022 XR Spine Lumbar Complete w/Flex AND [...] by Dimas Valentino on 02/14/2022 1555 Normal [facility] Complete Blood Counton 01-06 Erythrocyte distribution width (RBC) [Ratio] 12.4 % Normal 11.0-15.0 [facility] Comment on above: Performed By: #### T 4, CMP, TSH, LIPD, CBC #### [facility] [address], [place] [id number] Hematocrit (Bld) [Volume fraction] 45.5 % Normal 35.0-47.0 [facility] Comment on above: Performed By: #### T 4, CMP, TSH, LIPD, CBC #### [facility] [address] [id number] Hemoglobin (Bld) [Mass/Vol] 15.1 g/dL Normal 11.6-15.5 [facility] Specialist Comment on above: Performed By: #### T 4, CMP, TSH, LIPD, CBC #### [facility] [address], [place] [id number] MCH (RBC) [Entitic mass] 30.3 pg Normal 27.0-33.0 [facility] Comment on above: Performed By: #### T 4, CMP, TSH, LIPD, CBC #### [facility] [address], [place] [id number] MCHC (RBC) [Mass/Vol] 33.2 g/dL Normal 32.0-36.0 [facility] Comment on above: Performed By: #### T 4, CMP, TSH, LIPD, CBC #### [facility] [address], [place] [id number] MCV (RBC) [Entitic vol] 91 fL Normal 80-100 [facility] Special[facility] Comment on above: Performed By: #### T 4, CMP, TSH, LIPD, CBC #### [facility] [address], [place] [id number] Platelet mean volume (Bld) [Entitic vol] 11.30 fL Normal 7.50-12.50 [facility] Comment on above: Performed By: #### T 4, CMP, TSH, LIPD, CBC #### [facility] [address], [place] [id number] Platelets (Bld) [#/Vol] 283 10*3/uL Normal 140-400 [facility] Special[facility] Comment on above: Performed By: #### T 4, CMP, TSH, LIPD, CBC #### [facility] [address], [place] [id number] RBC (Bld) [#/Vol] 4.99 10*6/uL Normal 3.90-5.20 [facility] Specialist Comment on above: Performed By: #### T 4, CMP, TSH, LIPD, CBC #### [facility] [address], [place] [id number] RDW-SD 41.5 fL Normal 37.0-50.0 [facility] Industrial Engineer Comment on above: Performed By: #### T 4, CMP, TSH, LIPD, CBC #### [facility] [address], [place] [id number] WBC (Bld) [#/Vol] 6.1 10*3/uL Normal 3.8-11.0 Johana rn [place] [employer] Comment on above: Performed By: #### T 4, CMP, TSH, LIPD, CBC #### [facility] [address], [place] [id number] Comprehensive Metabolic Pane kamran 01-06-2022 Albumin [Mass/Vol] 5.3 g/dL High 3.6-5.1 Johana rn [place] [employer] Comment on above: Performed By: #### T 4, CMP, TSH, LIPD, CBC #### [facility] [address], [place] [id number] Albumin/Globulin [Mass ratio] 2.1 {ratio} Normal 1.0-2.5 [facility] Engineer Comment on above: Performed By: #### T 4, CMP, TSH, LIPD, CBC #### [facility] [address], [place] [id number] ALP [Catalytic activity/Vol] 36 U/L Normal 35-119 [facility] Industrial Engineer Comment on above: Performed By: #### T 4, CMP, TSH, LIPD, CBC #### [facility] [address], [place] [id number] ALT [Catalytic activity/Vol] 12 U/L Normal 6-33 [facility] Industrial Engineer Comment on above: Result Comment: 09/25 Female reference range changed. Performed By: #### T 4, CMP, TSH, LIPD, CBC #### [facility] [address], [place] [id number] Anion gap [Moles/Vol] 19 mmol/L Normal 12-20 [facility] Industrial Engineer Comment on above: Result Comment: Effe ctive 10/31/2019 reference range changed. Performed By: #### T 4, CMP, TSH, LIPD, CBC #### [facility] [address], [place] [id number] AST [Catalytic activity/Vol] 14 U/L Normal 9-34 [facility] Specialist Comment on above: Performed By: #### T 4, CMP, TSH, LIPD, CBC #### [facility] [address] [place], [place] [id number] Bilirubin [Mass/Vol] 1.22 mg/dL High 0.30-1.20 [facility] Specialist Comment on above: Performed By: #### T 4, CMP, TSH, LIPD, CBC #### [facility] [address], [place] [id number] BUN/CREA 18 Ratio Normal 6-22 [facility] Comment on above: Performed By: #### T 4, CMP, TSH, LIPD, CBC #### [facility] [address], [place] [id number] Calcium [Mass/Vol] 9.9 mg/dL Normal 8.6-10.2 [facility] Comment on above: Performed By: #### T 4, CMP, TSH, LIPD, CBC #### [facility] [address], [place] [id number] Chloride [Moles/Vol] 104 mmol/L Normal 98-107 [facility] Specialist Comment on above: Performed By: #### T 4, CMP, TSH, LIPD, CBC #### [facility] [address], [place] [id number] CO2 [Moles/Vol] 23 mmol/L Normal 20-31 [facility] Specialist Comment on above: Performed By: #### T 4, CMP, TSH, LIPD, CBC #### [facility] [address], [place] [id number] Creatinine [Mass/Vol] 0.6 mg/dL Normal 0.6-1.4 [facility] Comment on above: Performed By: #### T 4, CMP, TSH, LIPD, CBC #### [facility] [address], [place] [id number] eGFRAA 163 mL/min/1.73m2 Normal >60 [facility] Comment on above: Performed By: #### T 4, CMP, TSH, LIPD, CBC #### [facility] [address], [place] [id number] eGFRNAA 135 mL/min/1.73m2 Normal >60 Travis hendricks [place] [employer] Engineer Comment on above: Performed By: #### T 4, CMP, TSH, LIPD, CBC #### [facility] [address], [place] [id number] Globulin (S) [Mass/Vol] 2.5 g/dL Normal 1.9-3.7 [facility] Industrial Engineer Comment on above: Performed By: #### T 4, CMP, TSH, LIPD, CBC #### [facility] [address], [place] [id number] Glucose [Mass/Vol] 89 mg/dL Normal 65-99 Johana rn [place] [employer] Comment on above: Result Comment: For FASTING Glucose --- ADA reference ranges: Normal 65-99 mg/dl Prediabetes 100-125 Diabetes >/= 126 Performed By: #### T 4, CMP, TSH, LIPD, CBC #### [facility] [address], [place] [id number] Potassium [Moles/Vol] 4.0 mmol/L Normal 3.5-5.5 [facility] Industrial Engineer Comment on above: Performed By: #### T 4, CMP, TSH, LIPD, CBC #### [facility] [address], [place] [id number] Protein [Mass/Vol] 7.8 g/dL Normal 6.1-8.1 [place] [employer] [place] [employer] Comment on above: Performed By: #### T 4, CMP, TSH, LIPD, CBC #### [facility] [address], [place] [id number] Sodium [Moles/Vol] 142 mmol/L Normal 135-146 [facility] rn [place] [employer] Comment on above: Performed By: #### T 4, CMP, TSH, LIPD, CBC #### [facility] [address], [place] [id number] Urea nitrogen [Mass/Vol] 10 mg/dL Normal 7-25 [facility] Industrial Engineer Comment on above: Performed By: #### T 4, CMP, TSH, LIPD, CBC #### [facility] [address], [place] [id number] Lipid Panelon 01-06-2022 Cholesterol [Mass/Vol] 175 mg/dL Normal 125-200 [facility] Specialist Comment on above: Result Comment: Low risk < 200mg/dL Borderline risk 201-239 mg/dl High risk > or equal to 240 Performed By: #### T 4, CMP, TSH, LIPD, CBC #### [facility] [address] [place], [place] [id number] Cholesterol in HDL [Mass/Vol] 90 mg/dL Normal >40 [facility] Specialist Comment on above: Result Comment: High Cardiovascular Risk HDL <40 mg/dL Low Cardiovascular Risk HDL > or equal to 60 mg/dl Performed By: #### T 4, CMP, TSH, LIPD, CBC #### [facility] [address], [place] [id number] Cholesterol in LDL [Mass/Vol] 75 mg/dL Normal [facility] Specialist Comment on above: Result Comment: LDL ATP III CLASSIFICATION LDL less than 100 mg/dl Optimal LDL 100-129 mg/dl Near or above optimal LDL 130-159 Borderline high LDL 160-189 High LDL greater than 189 mg/dl Very High Performed By: #### T 4, CMP, TSH, LIPD, CBC #### [facility] [address], [place] [id number] Cholesterol in VLDL [Mass/Vol] 10 mg/dL Normal [facility] Specialist Comment on above: Performed By: #### T 4, CMP, TSH, LIPD, CBC #### [facility] [address], [place] [id number] Cholesterol.total/C holesterol in HDL [Mass ratio] 2 {ratio} Normal [facility] Specialist Comment on above: Performed By: #### T 4, CMP, TSH, LIPD, CBC #### [facility] [address] [id number] Triglyceride [Mass/Vol] 51 mg/dL Normal 30-150 [facility] Special[facility] Comment on above: Result Comment: TRIG ATPIII CLASSIFICATIONS TRIG less than 150 mg/dl Normal TRIG 150-199 mg/dl Borderline High TRIG 200-500 mg/dl High TRIG greather than 500 mg/dl Very High Performed By: #### T 4, CMP, TSH, LIPD, CBC #### [facility] [address] [facility] [place] [id number] Q - THYROID PEROXIDASE TPO A Bon 01-06-2022 THYROID PEROXIDASE ANTIBODIES <1 Normal <9 [facility] Industrial Engineer Comment on above: Order Comment: [facility] Testing performed at: [employer], [facility], [address] [facility], [address] [place] [address], [address] [place] [address], Engineer Assistant: Zander Doherty MD [facility] Collection Date/Time: [facility] Results Received Date/Time: [facility] Reported Date/Time: Performed By: #### 3 4F, [id number] #### [facility] Default [address] [place] [address] Q - URINALYSIS,COMPLETEon Appearance (U) TURBID Abnormal CLEAR [facility] Specialist Comment on above: Order Comment: [facility] performed at: [employer], [facility], [address] [facility], [address] [place] [address], [address] [place] [address], Engineer Assistant: Zander Doherty MD [facility] Date/Time: [facility] Results Received Date/Time: [facility] Reported Date/Time: Performed By: #### 3 4F, [id number] #### [facility] [address] [place] [address] BACTERIA NONE SEEN Normal NONE SEEN [facility] Industrial Engineer Comment on above: Order Comment: [facility] performed at: [employer], [facility], [address] , [address] [place] [address], [address] [place] [address], Engineer Assistant: Zander Doherty MD [facility] Date/Time: [facility] Results Received Date/Time: [facility] Reported Date/Time: Performed By: #### 3 4F, [id number] #### [facility] Default [address] [place] [address] Bilirubin Ql (U) Negative Normal NEGATIVE [facility] Industrial Engineer Comment on above: Order Comment: [facility] performed at: [employer], [facility], [address], [address] [place] [address], [address] [place] [address], Engineer Assistant: Zander Doherty MD [facility] Date/Time: [facility] Results Received Date/Time: [facility] Reported Date/Time: Performed By: #### 3 4F, [id number] #### [facility] Default [address] [place] [address] CALCIUM OXALATE CRYSTALS MODERATE Abnormal NONE OR FEW [facility] Industrial Engineer Comment on above: Order Comment: [facility] performed at: [employer], [facility], [address] [facility], [address] [place] [address], [address] [place] [address], Engineer Assistant: Zander Doherty MD [facility] Collection Date/Time: [facility] Results Received Date/Time: [facility] Reported Date/Time: Performed By: #### 3 4F, [id number] #### [facility] Default [address] [place] [address] Color (U) DARK YELLOW Normal YELLOW [facility] Industrial Engineer Comment on above: Order Comment: [facility] performed at: [employer], [facility], [address] [facility], [address] [place] [address], [address] [place] [address], Engineer Assistant: Zander Doherty MD [facility] Date/Time: [facility] Results Received Date/Time: [facility] Reported Date/Time: Performed By: #### 3 4F, [id number] #### [facility] Default [address] [place] [address] Glucose Ql (U) Negative Normal NEGATIVE [facility] Industrial Engineer Comment on above: Order Comment: [facility] performed at: [employer], [facility], [address] [facility], [address] [place] [address], [address] [place] [address], Engineer Assistant: Zander Doherty MD [facility] Date/Time: [facility] Results Received Date/Time: [facility] Reported Date/Time: Performed By: #### 3 4F, [id number] #### [facility] Default [address] [place] [address] HYALINE CAST NONE SEEN Normal NONE SEEN [facility] Industrial Engineer Comment on above: Order Comment: [facility] performed at: [facility], [facility], [address] [facility], [address] [place] [address], [address] [place] [address], Engineer Assistant: Zander Doherty MD [facility] Date/Time: [facility] Results Received Date/Time: [facility] Reported Date/Time: Performed By: #### 3 4F, [id number] #### [facility] Default [address] [place] [address] Ketones Ql (U) TRACE Abnormal NEGATIVE [facility] Industrial Engineer Comment on above: Order Comment: [facility] performed at: [employer], [facility], [address] [facility], [address] [place] [address], [address] [place] [address], Engineer Assistant: Zander Doherty MD [facility] Date/Time: [facility] Results Received Date/Time: [facility] Reported Date/Time: Performed By: #### 3 4F, [id number] #### [facility] Default [address] [place] [address] Leukocyte esterase Test strip Ql (U) Negative Normal NEGATIVE [facility] Industrial Engineer Comment on above: Order Comment: [facility] performed at: [facility], [facility], [address] [facility], [address] [place] [address], [address] [place] [address], Engineer Assistant: Zander Doherty MD [facility] Date/Time: [facility] Results Received Date/Time: [facility] Reported Date/Time: Performed By: #### 3 4F, [id number] #### [facility] Default [address] [place] [address] Nitrite Ql (U) Negative Normal NEGATIVE [facility] Industrial Engineer Comment on above: Order Comment: [facility] performed at: [facility], [facility], [address] [facility], [address] [place] [address], [address] [place] [address], Engineer Assistant: Zander Doherty MD [facility] Date/Time: [facility] Results Received Date/Time: [facility] Reported Date/Time: Performed By: #### 3 4F, [id number] #### [facility] Default [address] [place] [address] OCCULT BLOOD Negative Normal NEGATIVE [facility] Industrial Engineer Comment on above: Order Comment: [facility] performed at: [employer], [facility], [address] [facility], [address] [place] [address], [address] [place] [address], Engineer Assistant: Zander Doherty MD [facility] Date/Time: [facility] Results Received Date/Time: [facility] Reported Date/Time: Performed By: #### 3 4F, [id number] #### [facility] Default [address] [place] [address] pH (U) 5.5 [pH] Normal 5.0-8.0 [facility] Industrial Engineer Comment on above: Order Comment: [facility] performed at: [facility], [facility], [address] , [address] [place] [address], [address] [place] [address], Engineer Assistant: Zander Doherty MD [facility] Date/Time: [facility] Results Received Date/Time: [facility] Reported Date/Time: Performed By: #### 3 4F, [id number] #### [facility] Default [address] [place] [address] Protein Ql (U) TRACE Abnormal NEGATIVE [facility] Industrial Engineer Comment on above: Order Comment: [facility] performed at: [facility], [facility], [address] [facility], [address] [place] [address], [address] [place] [address], Engineer Assistant: Zander Doherty MD [facility] Date/Time: [facility] Results Received Date/Time: [facility] Reported Date/Time: Performed By: #### 3 4F, [id number] #### [facility] Default [address] [place] [address] RBC NONE SEEN Normal < OR = 2 [facility] Industrial Engineer Comment on above: Order Comment: [facility] performed at: [employer], [facility], [address] [facility], [address] [place] [address], [address] [place] [address], Engineer Assistant: Zander Doherty MD [facility] Date/Time: [facility] Results Received Date/Time: [facility] Reported Date/Time: Performed By: #### 3 4F, [id number] #### [facility] Default [address] [place] [address] Specific gravity (U) [Rel density] 1.034 Normal 1.001-1.035 [facility] Industrial Engineer Comment on above: Order Comment: [facility] performed at: [employer], [facility], [address] [facility], [address] [place] [address], [address] [place] [address], Engineer Assistant: Zander Doherty MD [facility] Collection Date/Time: [facility] Results Received Date/Time: [facility] Reported Date/Time: Performed By: #### 3 4F, [id number] #### [facility] Default [address] [place] [address] SQUAMOUS EPITHELIAL CELLS 0-5 Normal < OR = 5 [facility] Industrial Engineer Comment on above: Order Comment: [facility] performed at: [facility], [facility], [address] [facility], [address] [place] [address], [address] [place] [address], Engineer Assistant: Zander Doherty MD [facility] Date/Time: [facility] Results Received Date/Time: [facility] Reported Date/Time: Performed By: #### 3 4F, [id number] #### [facility] Default [address] [place] [address] WBC NONE SEEN Normal < OR = 5 [facility] Industrial Engineer Comment on above: Order Comment: [facility] performed at: [facility], [facility], [address] [facility], [address] [place] [address], [address] [place] [address], Engineer Assistant: Zander Doherty MD [facility] Date/Time: [facility] Results Received Date/Time: [id number] [facility] Reported Date/Time: Performed By: #### 3 4F, [id number] #### [facility] Default [address] [place] [address] TSHon 01-06-2022 TSH 0.208 uIU/mL Low 0.400-4.500 [facility] Industrial Engineer Comment on above: Performed By: #### T 4, CMP, TSH, LIPD, CBC #### [facility] [address] [place], [place] [id number] Total T4on 01-06-2022 T4 [Mass/Vol] 7.9 ug/dL Normal 4.5-11.7 [facility] Industrial Engineer Comment on above: Performed By: #### T 4, CMP, TSH, LIPD, CBC #### [facility] [address] [place], [place] [id number] US Thyroidon 01-06-2022 US Thyroid FINDINGS: Right [...] by Dimas Valentino on 01/07/2022 1021 Normal [facility] Industrial Engineer Encounters Encounter Date Encounter Type Care Provider Facility Start: 04-18-2024 End: 04-18-2024 ambulatory BRANDON BOB Not Available Start: 03-18-2024 End: 03-18-2024 ambulatory BRANDON BOB Not Available Start: 11-07-2022 End: 11-07-[address] CONCEPCIÓN PETERSON Facility:[facility] Start: 10-07-2022 End: 10-10-2022 ambulatory ISAIAH BANERJEE [facility] Start: 08-22-2022 ambulatory RENETTA COLLAZO [facility] Start: 08-20-2022 End: 08-21-2022 ambulatory BILL WORRELL [facility] Start: 03-15-2022 End: 03-15-[address] ELEANOR WILEY Facility:[facility] Payers Date Payer Category Payer Unknown [id number] 1995 Unknown [id number] [id number] 1996 Unknown [id number] [id number] [id number] 1996 Unknown [id number] [id number] 1996 Unknown [id number] [id number] [id number] 1958 Medicaid [id number] 1958 Unknown [id number] Progress note 10-07-2022 Note Date & Type [...] a non-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 Patient History Past [...] PT/chiropractic therapy Start Neurontin F/U 3 months [facility] Progress note 08-22-2022 Note Date & Type [...] office. 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 Patient History No [...] be an additional personal documentation from me. [facility] Clinical Note 05-16-2022 Note Date & Type Note Facility 05-16-2022 Note HISTORY: Left sided pain and tingling PROCEDURE: Certona Signa HDXT 1.5. Sagittal T1, T2, STIR [...] signed by Dimas Valentino on 05/19/2022 1134 [facility] Industrial Engineer Summary Purpose Family History No Family History Records FoundNo Family History Records FoundNo Family History Records FoundNo Family History Records Found Advance Directives No Advanced Directives Records FoundNo Advanced Directives Records FoundNo Advanced Directives Records FoundNo Advanced Directives Records Found Additional Source Comments INFORMATION SOURCE (unrecogn ized section and content) DATE CREATED AUTHOR 05/19/2022 [facility] dical Specialist DATE CREATED AUTHOR AUTHOR'S ORGANIZ ATION 11/18/2022 [facility] DATE CREATED AUTHOR AUTHOR'S ORGANIZ ATION 02/07/2023 [facility] DATE CREATED AUTHOR AUTHOR'S ORGANRAAD ATION 04/18/2024 [facility] dical Specialists EPIC FOR RECORDS PERTAINING TO [...] BE BASED ON THE PRIMARY CLINICAL RECORDS. [employer] [facility]. provides no warranty or guarantee of the accuracy or completeness of information in this document.
[2024-05-20 15:13] LABS: Age Gdln ACOG Testing Note (.); IGP, rfx Aptima HPV ASCU Note (.)
== END 2024-05-16 18:36 | disposition home or self-care (01) ==
LOC: LAB 18:35
PROVIDERS: PCP Family Medicine; Visit Provider Physician Assistant
DX: Z12.4 Encounter for screening for malignant neoplasm of cervix (principal)
CPT/HCPCS: 88175

== ENCOUNTER 2024-06-13 09:27 | Outpatient (OUT) | payer BC, SELFPAY ==
--- NOTE | 2024-06-13 09:29 | US_ITS ---
[address] [address] Patient Name: FLAKITO TRIVEDI MRN: [id number] date: 1995 Sex: F Assigned Patient Location: [facility] Current Patient Location: [facility] Accession/Order Number: [id number] Exam Date: 06/13/2024 09:32 Report Date: 06/13/2024 10:36 At the request of: BRANDON BOB Procedure: US OB cervical length EXAMINATION: US OB anatomy, US OB cervical length HISTORY: anatomic survey Z36.89 COMPARISON: No relevant comparison available. FINDINGS: Heart Rate: 148 bpm Amniotic Fluid Volume: Subjectively normal Placenta: Posterior. The placental edge is 1.7 cm from the internal os Number: 1 Position: VARIABLE Cervix: 4.6 cm, closed Normal anatomy: Lateral ventricles, cerebellum, posterior fossa, nose, lips, orbits, four-chamber heart, RVOT, LVOT, diaphragm, stomach, kidneys, abdominal cord insertion, bladder, umbilical arteries, three-vessel cord, spine, extremities BIOMETRY: BPD: 4.36 cm; 19 weeks 1 day; 6.10 % HC: 16.82 cm; 19 weeks 3 days; 5.80 % AC: 16.43 cm; 21 weeks 3 days; 73.30 % FL: 3.42 cm; 20 weeks 5 days; 48 % EFW: 347.37 g; 63.90 %, 14 ounces FL/AC: 20.82 FL/BPD: 78.44 HC/AC: 1.02 GESTATIONAL AGE: Age by EDC: 20 weeks 4 days SINGH by EDC: 2024-10-27 Age by US: 20 weeks 1 day SINGH by US: 2024-10-30 US/US OB cervical length IMPRESSION: Normal anatomy scan Closed cervix measuring 4.6 cm in length Electronically authenticated by: OCTAVIO LUCIANO Date: 06/13/2024 10:36
--- NOTE | 2024-06-13 09:29 | US_ITS ---
[address] [address] Patient Name: FLAKITO TRIVEDI MRN: [id number] date: 1995 Sex: F Assigned Patient Location: [facility] Current Patient Location: [facility] Accession/Order Number: [id number] Exam Date: 06/13/2024 09:32 Report Date: 06/13/2024 10:36 At the request of: BRANDON BOB Procedure: US OB anatomy EXAMINATION: US OB anatomy, US OB cervical length HISTORY: anatomic survey Z36.89 COMPARISON: No relevant comparison available. FINDINGS: Heart Rate: 148 bpm Amniotic Fluid Volume: Subjectively normal Placenta: Posterior. The placental edge is 1.7 cm from the internal os Number: 1 Position: VARIABLE Cervix: 4.6 cm, closed Normal anatomy: Lateral ventricles, cerebellum, posterior fossa, nose, lips, orbits, four-chamber heart, RVOT, LVOT, diaphragm, stomach, kidneys, abdominal cord insertion, bladder, umbilical arteries, three-vessel cord, spine, extremities BIOMETRY: BPD: 4.36 cm; 19 weeks 1 day; 6.10 % HC: 16.82 cm; 19 weeks 3 days; 5.80 % AC: 16.43 cm; 21 weeks 3 days; 73.30 % FL: 3.42 cm; 20 weeks 5 days; 48 % EFW: 347.37 g; 63.90 %, 14 ounces FL/AC: 20.82 FL/BPD: 78.44 HC/AC: 1.02 GESTATIONAL AGE: Age by EDC: 20 weeks 4 days SINGH by EDC: 2024-10-27 Age by US: 20 weeks 1 day SINGH by US: 2024-10-30 US/US OB anatomy IMPRESSION: Normal anatomy scan Closed cervix measuring 4.6 cm in length Electronically authenticated by: OCTAVIO LUCIANO Date: 06/13/2024 10:36
--- OUTSIDE RECORDS SUMMARY | 2024-06-13 09:45 | XMS_ITS | CCD ---
Author Organization [facility] Care Team Providers Care Office Specialist Name Role Phone DR ELEANOR WILEY Primary Care Unavailable NATALIIA INIGUEZ Admitting Unavailable NATALIIA INIGUEZ Consulting Unavailable NATALIIA INIGUEZ Attending Unavailable KRISTEN, DR BEEBE Attending Unavailable INEZ, DR ELEANOR Goldberg Primary Care Unavailable DR CONCEPCIÓN PETERSON Admitting Unavailable DR CONCEPCIÓN PETERSON Consulting Unavailable BILL WORRELL Referring Unavailable RENETTA COLLAZO Attending Unavailable BILL WORRELL Attending Unavailable ISAIAH BANERJEE Attending Unavailable BRANDON BOB Attending Unavailable GIOVANY BRINK Attending Unavailable Problems Active Problems Problem Classification [...] Interpretation Reference Range Facility [facility] 12-02-2022 Refill [id number] Joan Stone 1995 F Date Provider Department Center 12/02/2022 ISAIAH SALAZAR [facility] Family History Family Status - Relation Status Age at Mother Alive Father Alive Reason for Visit and Comments: Med Refill [[id number]] Normal [facility] PAP ACOG PANEL 2: 22 to 29on 11-12-2022 . . Normal [facility] Comment on above: Performed By: #### [id number] #### [facility] [address] [place] [address] Dr. Asher Renee Age Gdln ACOG Testing 22- [facility] Comment on above: Performed By: #### 4 [id number] #### [facility] [address] [place] [address] Dr. Asher Renee DIAGNOSIS: Comment [facility] Comment on above: Result Comment: NEGA TIVE FOR INTRAEPITHELIAL LESION OR MALIGNANCY. Performed By: #### 4 [id number] #### [facility] [address] [place] [address] Dr. Asher Renee Methodology: Comment [facility] Comment on above: Result Comment: This liquid based ThinPrep(R) pap test was screened with the use of an image guided system. Performed By: #### 4 [id number] #### [facility] [address] [place] [address] Dr. Asher Renee Note: Comment [facility] Comment on above: Result Comment: The Pap smear is a screening test designed to aid in the detection of premalignant and malignant conditions of the uterine cervix. It is not a diagnostic procedure and should not be used as the sole means of detecting cervical cancer. Both false-positive and false-negative reports do occur. . Performed By: #### 4 [id number] #### [facility] [address] [place] [address] Dr. Asher Renee Performed by: Comment [facility] Comment on above: Result Comment: Josephine Santiago, Tv News Director (ASCP) Performed By: #### 4 [id number] #### [facility] [address] [address] [address] Asher Renee Reflex Criteria: Comment Normal [facility] Comment on above: Result Comment: The HPV DNA reflex criteria were not met with this specimen result therefore, no HPV testing was performed. . Performed By: #### 4 [id number] #### [facility] [address] [address] [address] Asher Renee Specimen adequacy: Comment Normal [facility] Comment on above: Result Comment: Sati sfactory for evaluation. No endocervical component is identified. Performed By: #### 4 [id number] #### [facility] [address] [address] [address] Asher Renee 36on 10-28-2022 37 Approving, but needs appt for additional refills. Normal [facility] Follow-Upon 10-07-2022 Follow-Up [id number] Joan Stone 1995 F Date Provider Department Center 10/07/2022 [facility]AIAH SALAZAR [facility] Family History Family Status - Relation Status Age at Mother Alive Father Alive Level of Service:11473 [place] OFFICE/OUTPATIENT ESTABLISHED LOW MDM 20-29 MIN Reason for Visit and Comments: Follow-up [[id number]] - Pt here for low back pain [facility] 36on 09-22-2022 37 Approving, but needs appt for additional refills. Normal [facility] Procedure Visiton 08-22-2022 Procedure Visit [id number] Joan Stone 1995 Date Provider Department Center 08/22/2022 RENETTA CHÁVEZ [facility] Family History Family Status - Relation Status Age at Mother Alive Father Alive Level of Service:47203 [place] OFFICE/OUTPATIENT NEW LOW MDM 30-44 MINUTES (25) Reason for Visit and Comments: Pain [136] - Left SI joint CSI USG Normal [facility] Office Visiton 08-20-2022 Follow-up visit [id number] Joan Stone 1995 F Date Provider Department Center 08/20/2022 260-BILL WORRELL [facility] Chart Close Cosign Required by: Bill Worrell MD[[id number]] No family history on file Level of Service:06454 [place] OFFICE/OUTPATIENT NEW LOW MDM 30-44 MINUTES (GC) Normal [facility] US OB 1ST Trimesteron 2021 OB 1ST [...] by Ruy Luo on 03/17/2022 1627 Normal [facility] [employer] CBC AUTO DIFFon 03-15-2022 BASO # 0.0 103/ul Normal 0.0-0.1 [facility] Comment on above: Performed By: #### C BC #### [facility] [address] [place] [address] Dr. Asher Renee Basophils/100 WBC (Bld) 0.5 % Normal 0.2-2.0 [facility] Comment on above: Performed By: #### C BC #### [facility] [address] [address] [address] Asher Renee EO # 0.1 103/ul Normal 0.0-0.7 [facility] Comment on above: Performed By: #### C BC #### [facility] [address] [place] [address] Dr. Asher Renee Eosinophils/100 WBC (Bld) 1.1 % Normal 0.9-7.0 [facility] Comment on above: Performed By: #### C BC #### [facility] [address] [place] [address] Dr. Asher Renee Erythrocyte distribution width (RBC) [Ratio] 12.5 % Normal 11.0-15.0 [facility] Comment on above: Performed By: #### C BC #### [facility] [address] [place] [address] Dr. Asher Renee Hematocrit (Bld) [Volume fraction] 38.8 % Normal 36.0-48.0 [facility] Comment on above: Performed By: #### C BC #### [facility] [address] [place] [address] Dr. Asher Renee Hemoglobin (Bld) [Mass/Vol] 12.8 g/dL Normal 12.0-16.0 [facility] Comment on above: Performed By: #### C BC #### [facility] [address] [place] [address] Dr. Asher Renee IG # 0.02 10e3/ul Normal 0.00-0.03 [facility] Comment on above: Performed By: #### C BC #### [facility] [address] [place] [address] Dr. Asher Renee IG % 0.3 % Normal 0.0-0.5 [facility] Comment on above: Performed By: #### C BC #### [facility] [address] [place] [address] Dr. Asher Renee LYMPH # 1.7 103/ul Normal 1.2-3.8 [facility] Comment on above: Performed By: #### C BC #### [facility] [address] [place] [address] Dr. Asher Renee Lymphocytes/100 WBC (Bld) 26.2 % Normal 20.5-60.0 [facility] Comment on above: Performed By: #### C BC #### [facility] [address] [place] [address] Dr. Asher Renee MANUAL DIFF REQ NO Normal [facility] Comment on above: Performed By: #### C BC #### [facility] [address] [place] [address] Dr. Asher Renee MCH (RBC) [Entitic mass] 30.5 pg Normal 26.7-34.0 [facility] Comment on above: Performed By: #### C BC #### [facility] [address] [place] [address] Dr. Asher Renee MCHC (RBC) [Mass/Vol] 33.0 g/dL Normal 29.9-35.2 [facility] Comment on above: Performed By: #### C BC #### [facility] [address] [place] [address] Dr. Asher Renee MCV (RBC) [Entitic vol] 92.4 fL Normal 81.0-99.0 [facility] Comment on above: Performed By: #### C BC #### [facility] [address] [place] [address] Dr. Asher Renee MONO # 0.5 103/ul Normal 0.3-0.8 [facility] Comment on above: Performed By: #### C BC #### [facility] [address] [place] [address] Dr. Asher Renee Monocytes/100 WBC (Bld) 7.4 % Normal 1.7-12.0 [facility] Comment on above: Performed By: #### C BC #### [facility] [address] [place] [address] Dr. Asher Renee NEUT # 4.2 103/ul Normal 1.4-6.5 [facility] Comment on above: Performed By: #### C BC #### [facility] [address] [place] [address] Dr. Asher Renee Neutrophils/100 WBC (Bld) 64.5 % Normal 43.0-75.0 [facility] Comment on above: Performed By: #### C BC #### [facility] [address] [place] [address] Dr. Asher Renee Platelet mean volume (Bld) [Entitic vol] 10.8 fL Normal 9.5-13.5 [facility] Comment on above: Performed By: #### C BC #### [facility] [address] [place] [address] Dr. Asher Renee PLT 213 103/ul Normal 150-450 [facility] Comment on above: Performed By: #### C BC #### [facility] [address] [place] [address] Dr. Asher Renee RBC 4.20 106/ul Normal 4.20-5.40 [facility] Comment on above: Performed By: #### C BC #### [facility] [address] [place] [address] Dr. Asher Renee WBC 6.5 103/ul Normal 4.0-11.0 [facility] Comment on above: Performed By: #### C BC #### [facility] [address] [place] [address] Dr. Asher Renee PREG QUANT HCGon 03-15-2022 HCG QUANT 58 mIU/mL Normal [facility] Comment on above: Performed By: #### P REGQNT #### [facility] [address] [place] [address] Dr. Asher Renee HCG RANGE SEE BELOW Normal [facility] Comment on above: Result Comment: 5-50 0-1 WEEK 40-300 1-2 WEEKS 100-1,000 2-3 WEEKS 500-6,000 3-4 WEEKS 5,000-200,000 1-2 MONTHS 10,000-100,000 2-3 MONTHS 3,000-50,000 2ND TRIMESTER 1,000-50,000 3RD TRIMESTER Performed By: #### P REGQNT #### [facility] [address] [place] [address] Dr. Asher Renee PROF CHEM 8 (BAS METB)on Anion gap [Moles/Vol] 11.9 mmol/L Normal [facility] Comment on above: Performed By: #### B MP #### [facility] [address] [place] [address] Dr. Asher Renee Calcium [Mass/Vol] 9.0 mg/dL Normal 8.5-10.1 [facility] Comment on above: Performed By: #### B MP #### [facility] [address] [place] [address] Dr. Asher Renee Chloride [Moles/Vol] 105 mmol/L Normal 98-107 [facility] Comment on above: Performed By: #### B MP #### [facility] [address] [address] [address] Asher Renee CO2 [Moles/Vol] 27.7 mmol/L Normal 21.0-32.0 [facility] Comment on above: Performed By: #### B MP #### [facility] [address] [address] [address] Asher Renee Creatinine [Mass/Vol] 0.55 mg/dL Normal 0.55-1.02 [facility] Comment on above: Performed By: #### B MP #### [facility] [address] [address] [address] Asher Renee EGFR-AF DUTCH >60 Normal >=60 [facility] Comment on above: Performed By: #### B MP #### [facility] [address] [address] [address] Asher Renee EGFR-NON AF DUTCH >60 Normal >=60 [facility] Comment on above: Performed By: #### B MP #### [facility] [address] [address] [address] Asher Renee Glucose [Mass/Vol] 95 mg/dL Normal 74-106 [facility] Comment on above: Performed By: #### B MP #### [facility] [address] [address] [address] Asher Renee Potassium [Moles/Vol] 3.6 mmol/L Normal 3.5-5.1 [facility] Comment on above: Performed By: #### B MP #### [facility] [address] [address] [address] Asher Renee Sodium [Moles/Vol] 141 mmol/L Normal 136-145 [facility] Comment on above: Performed By: #### B MP #### [facility] [address] [address] [address] Asher Renee Urea nitrogen [Mass/Vol] 10.0 mg/dL Normal 7.0-18.0 [facility] Comment on above: Performed By: #### B MP #### [facility] [address] [place], [place] [address] Dr. Asher Renee Urea nitrogen/Creatinine [Mass ratio] 18.2 mg/mg Normal [facility] Comment on above: Performed By: #### B MP #### [facility] [address] [place], [place] [address] Dr. Asher Renee US RUQon 02-24-2022 US [...] by Dimas Valentino on 02/24/2022 1035 Normal [facility] XR Spine Lumbar Complete w/F jey AND [place] 02-14-2022 XR Spine Lumbar Complete w/Flex AND [...] by Dimas Valentino on 02/14/2022 1555 Normal [facility] Complete Blood Counton 01-06 Erythrocyte distribution width (RBC) [Ratio] 12.4 % Normal 11.0-15.0 [facility] Comment on above: Performed By: #### T 4, CMP, TSH, LIPD, CBC #### [facility] [address], [place] [id number] Hematocrit (Bld) [Volume fraction] 45.5 % Normal 35.0-47.0 [facility] Comment on above: Performed By: #### T 4, CMP, TSH, LIPD, CBC #### [facility] [address], [place] [id number] Hemoglobin (Bld) [Mass/Vol] 15.1 g/dL Normal 11.6-15.5 [facility] Specialist Comment on above: Performed By: #### T 4, CMP, TSH, LIPD, CBC #### [facility] [address], [place] [id number] MCH (RBC) [Entitic mass] 30.3 pg Normal 27.0-33.0 [facility] Specialist Comment on above: Performed By: #### T 4, CMP, TSH, LIPD, CBC #### [facility] [address], [place] [id number] MCHC (RBC) [Mass/Vol] 33.2 g/dL Normal 32.0-36.0 [facility] Specialist Comment on above: Performed By: #### T 4, CMP, TSH, LIPD, CBC #### [facility] [address], [place] [id number] MCV (RBC) [Entitic vol] 91 fL Normal 80-100 [facility] Specialist Comment on above: Performed By: #### T 4, CMP, TSH, LIPD, CBC #### [facility] [address], [place] [id number] Platelet mean volume (Bld) [Entitic vol] 11.30 fL Normal 7.50-12.50 [facility] Specialist Comment on above: Performed By: #### T 4, CMP, TSH, LIPD, CBC #### [facility] [address], [place] [id number] Platelets (Bld) [#/Vol] 283 10*3/uL Normal 140-400 [facility] Specialist Comment on above: Performed By: #### T 4, CMP, TSH, LIPD, CBC #### [facility] [address], [place] [id number] RBC (Bld) [#/Vol] 4.99 10*6/uL Normal 3.90-5.20 [facility] Specialist Comment on above: Performed By: #### T 4, CMP, TSH, LIPD, CBC #### [facility] [address], [place] [id number] RDW-SD 41.5 fL Normal 37.0-50.0 [facility] [employer] Comment on above: Performed By: #### T 4, CMP, TSH, LIPD, CBC #### [facility] [address], [place] [id number] WBC (Bld) [#/Vol] 6.1 10*3/uL Normal 3.8-11.0 Johana rn [employer] Comment on above: Performed By: #### T 4, CMP, TSH, LIPD, CBC #### [facility] [address], [place] [id number] Comprehensive Metabolic Pane kamran 01-06-2022 Albumin [Mass/Vol] 5.3 g/dL High 3.6-5.1 Johana rn [employer] Comment on above: Performed By: #### T 4, CMP, TSH, LIPD, CBC #### [facility] [address], [place] [id number] Albumin/Globulin [Mass ratio] 2.1 {ratio} Normal 1.0-2.5 [facility] [employer] Comment on above: Performed By: #### T 4, CMP, TSH, LIPD, CBC #### [facility] [address], [place] [id number] ALP [Catalytic activity/Vol] 36 U/L Normal 35-119 [facility] [employer] Comment on above: Performed By: #### T 4, CMP, TSH, LIPD, CBC #### [facility] [address], [place] [id number] ALT [Catalytic activity/Vol] 12 U/L Normal 6-33 [facility] [employer] Comment on above: Result Comment: 09/25 Female reference range changed. Performed By: #### T 4, CMP, TSH, LIPD, CBC #### [facility] [address], [place] [id number] Anion gap [Moles/Vol] 19 mmol/L Normal 12-20 [facility] [employer] Comment on above: Result Comment: Effe ctive 10/31/2019 reference range changed. Performed By: #### T 4, CMP, TSH, LIPD, CBC #### [facility] [address], [place] [id number] AST [Catalytic activity/Vol] 14 U/L Normal 9-34 [facility] Comment on above: Performed By: #### T 4, CMP, TSH, LIPD, CBC #### [facility] [address], [place] [id number] Bilirubin [Mass/Vol] 1.22 mg/dL High 0.30-1.20 [facility] Specialist Comment on above: Performed By: #### T 4, CMP, TSH, LIPD, CBC #### [facility] [address], [place] [id number] BUN/CREA 18 Ratio Normal 6-22 [facility] Comment on above: Performed By: #### T 4, CMP, TSH, LIPD, CBC #### [facility] [address], [place] [id number] Calcium [Mass/Vol] 9.9 mg/dL Normal 8.6-10.2 [facility] Comment on above: Performed By: #### T 4, CMP, TSH, LIPD, CBC #### [facility] [address], [place] [id number] Chloride [Moles/Vol] 104 mmol/L Normal 98-107 [facility] Comment on above: Performed By: #### T 4, CMP, TSH, LIPD, CBC #### [facility] [address], [place] [id number] CO2 [Moles/Vol] 23 mmol/L Normal 20-31 [facility] Comment on above: Performed By: #### T 4, CMP, TSH, LIPD, CBC #### [facility] [address], [place] [id number] Creatinine [Mass/Vol] 0.6 mg/dL Normal 0.6-1.4 [facility] Comment on above: Performed By: #### T 4, CMP, TSH, LIPD, CBC #### [facility] [address], [place] [id number] eGFRAA 163 mL/min/1.73m2 Normal >60 [facility] Comment on above: Performed By: #### T 4, CMP, TSH, LIPD, CBC #### [facility] [address], [place] [id number] eGFRNAA 135 mL/min/1.73m2 Normal >60 Travis hendricks [employer] Comment on above: Performed By: #### T 4, CMP, TSH, LIPD, CBC #### [facility] [address], [place] [id number] Globulin (S) [Mass/Vol] 2.5 g/dL Normal 1.9-3.7 [facility] [employer] Comment on above: Performed By: #### T 4, CMP, TSH, LIPD, CBC #### [facility] [address], [place] [id number] Glucose [Mass/Vol] 89 mg/dL Normal 65-99 Johana mcdowell [employer] Comment on above: Result Comment: For FASTING Glucose --- ADA reference ranges: Normal 65-99 mg/dl Prediabetes 100-125 Diabetes >/= 126 Performed By: #### T 4, CMP, TSH, LIPD, CBC #### [facility] [address], [place] [id number] Potassium [Moles/Vol] 4.0 mmol/L Normal 3.5-5.5 [facility] [employer] Comment on above: Performed By: #### T 4, CMP, TSH, LIPD, CBC #### [facility] [address], [place] [id number] Protein [Mass/Vol] 7.8 g/dL Normal 6.1-8.1 Johana rn [employer] Comment on above: Performed By: #### T 4, CMP, TSH, LIPD, CBC #### [facility] [address], [place] [id number] Sodium [Moles/Vol] 142 mmol/L Normal 135-146 Johana rn [employer] Comment on above: Performed By: #### T 4, CMP, TSH, LIPD, CBC #### [facility] [address], [place] [id number] Urea nitrogen [Mass/Vol] 10 mg/dL Normal 7-25 [facility] [employer] Comment on above: Performed By: #### T 4, CMP, TSH, LIPD, CBC #### [facility] [address], [place] [id number] Lipid Panelon 03-14-2022 Cholesterol [Mass/Vol] 175 mg/dL Normal 125-200 [facility] Specialist Comment on above: Result Comment: Low risk < 200mg/dL Borderline risk 201-239 mg/dl High risk > or equal to 240 Performed By: #### T 4, CMP, TSH, LIPD, CBC #### [facility] [address] [place], [place] [id number] Cholesterol in HDL [Mass/Vol] 90 mg/dL Normal >40 [facility] Specialist Comment on above: Result Comment: High Cardiovascular Risk HDL <40 mg/dL Low Cardiovascular Risk HDL > or equal to 60 mg/dl Performed By: #### T 4, CMP, TSH, LIPD, CBC #### [facility] [address] [place], [place] [id number] Cholesterol in LDL [Mass/Vol] 75 mg/dL Normal [facility] Specialist Comment on above: Result Comment: LDL ATP III CLASSIFICATION LDL less than 100 mg/dl Optimal LDL 100-129 mg/dl Near or above optimal LDL 130-159 Borderline high LDL 160-189 High LDL greater than 189 mg/dl Very High Performed By: #### T 4, CMP, TSH, LIPD, CBC #### [facility] [address] [place], [place] [id number] Cholesterol in VLDL [Mass/Vol] 10 mg/dL Normal [facility] Specialist Comment on above: Performed By: #### T 4, CMP, TSH, LIPD, CBC #### [facility] [address] [place], [place] [id number] Cholesterol.total/C holesterol in HDL [Mass ratio] 2 {ratio} Normal [facility] Specialist Comment on above: Performed By: #### T 4, CMP, TSH, LIPD, CBC #### [facility] [address] [place], [place] [id number] Triglyceride [Mass/Vol] 51 mg/dL Normal 30-150 [facility] Specialist Comment on above: Result Comment: TRIG ATPIII CLASSIFICATIONS TRIG less than 150 mg/dl Normal TRIG 150-199 mg/dl Borderline High TRIG 200-500 mg/dl High TRIG greather than 500 mg/dl Very High Performed By: #### T 4, CMP, TSH, LIPD, CBC #### [facility] [address] [place], [place] [id number] Q - THYROID PEROXIDASE TPO A Bon 01-06-2022 THYROID PEROXIDASE ANTIBODIES <1 Normal <9 [facility] [employer] Comment on above: Order Comment: [facility] performed at: [facility], [facility], [address] , [address] [place] [address], [address] [place] [address], Director Of Ancillary Services: Zander Doherty MD [facility] Collection Date/Time: [facility] Results Received Date/Time: [facility] Reported Date/Time: Performed By: #### 3 4F, [id number] #### [facility] [address] [place] [address] Q - URINALYSIS,COMPLETEon Appearance (U) TURBID Abnormal CLEAR [facility] Specialist Comment on above: Order Comment: [facility] performed at: [facility], [address] , [address] [place] [address], [address] [place] [address], Director Of Ancillary Services: Zander Doherty MD [facility] Date/Time: [facility] Results Received Date/Time: [facility] Reported Date/Time: Performed By: #### 3 4F, [id number] #### [facility] [address] [place] [address] BACTERIA NONE SEEN Normal NONE SEEN [facility] [employer] Comment on above: Order Comment: [facility] performed at: [facility], [address], [address] [place] [address], [address] [place] [address], Director Of Ancillary Services: Zander Doherty MD [facility] Date/Time: [facility] Results Received Date/Time: [facility] Reported Date/Time: Performed By: #### 3 4F, [id number] #### [facility] [address] [place] [address] Bilirubin Ql (U) Negative Normal NEGATIVE [facility] Specialist Comment on above: Order Comment: [facility] performed at: [facility], [address], [address] [place] [address], [address] [place] [address], Director Of Ancillary Services: Zander Doherty MD [facility] Date/Time: [facility] Results Received Date/Time: [facility] Reported Date/Time: Performed By: #### 3 4F, [id number] #### [facility] [address] [place] [address] CALCIUM OXALATE CRYSTALS MODERATE Abnormal NONE OR FEW [facility] [employer] Comment on above: Order Comment: [facility] performed at: [facility], [facility], [address] [place] [address], [address] [place] [address], Director Of Ancillary Services: Zander Doherty MD [facility] Date/Time: [facility] Results Received Date/Time: [facility] Reported Date/Time: Performed By: #### 3 4F, [id number] #### [facility] [address] [place] [address] Color (U) DARK YELLOW Normal YELLOW [facility] [employer] Comment on above: Order Comment: [facility] performed at: [facility], [address] [place] [address], [address] [place] [address], [address] [place] [address], Director Of Ancillary Services: Zander Doherty MD [facility] Date/Time: [facility] Results Received Date/Time: [facility] Reported Date/Time: Performed By: #### 3 4F, [id number] #### [facility] Default [address] [place] [address] Glucose Ql (U) Negative Normal NEGATIVE [facility] Construction Technology Instructor Comment on above: Order Comment: [facility] Testing performed at: [employer], [facility], [address] [place] [address], [address] [place] [address], [address] [place] [address], Director Of Ancillary Services: Zander Doherty MD [facility] Collection Date/Time: [facility] Results Received Date/Time: [facility] Reported Date/Time: Performed By: #### 3 4F, [id number] #### [facility] Default [address] [place] [address] HYALINE CAST NONE SEEN Normal NONE SEEN [facility] Construction Technology Instructor Comment on above: Order Comment: [facility] performed at: [employer], [facility], [address] , [address] [place] [address], [address] [place] [address], Director Of Ancillary Services: Zander Doherty MD [facility] Date/Time: [facility] Results Received Date/Time: [facility] Reported Date/Time: Performed By: #### 3 4F, [id number] #### [facility] [address] [place] [address] Ketones Ql (U) TRACE Abnormal NEGATIVE [facility] Construction Technology Instructor Comment on above: Order Comment: [facility] performed at: [employer], [facility], [address] , [address] [place] [address], [address] [place] [address], Director Of Ancillary Services: Zander Doherty MD [facility] Collection Date/Time: [facility] Results Received Date/Time: [facility] Reported Date/Time: Performed By: #### 3 4F, [id number] #### [facility] Default [address] [place] [address] Leukocyte esterase Test strip Ql (U) Negative Normal NEGATIVE [facility] Construction Technology Instructor Comment on above: Order Comment: [facility] performed at: [employer], [facility], [address] , [address] [place] [address], [address] [place] [address], Director Of Ancillary Services: Zander Doherty MD [facility] Collection Date/Time: [facility] Results Received Date/Time: [facility] Reported Date/Time: Performed By: #### 3 4F, [id number] #### [facility] [address] [place] [address] Nitrite Ql (U) Negative Normal NEGATIVE [facility] Construction Technology Instructor Comment on above: Order Comment: [facility] performed at: [employer], [facility], [address] , [address] [place] [address], [id number], Director Of Ancillary Services: Zander Doherty MD [facility] Date/Time: [facility] Results Received Date/Time: [facility] Reported Date/Time: Performed By: #### 3 4F, [id number] #### [facility] [address] [place] [address] OCCULT BLOOD Negative Normal NEGATIVE [facility] Construction Technology Instructor Comment on above: Order Comment: [facility] performed at: [employer], [facility], [address] [facility], [address] [place] [address], [address] [place] [address], Director Of Ancillary Services: Zander Doherty MD [facility] Collection Date/Time: [facility] Results Received Date/Time: [facility] Reported Date/Time: Performed By: #### 3 4F, [id number] #### [facility] [address] [place] [address] pH (U) 5.5 [pH] Normal 5.0-8.0 [facility] Construction Technology Instructor Comment on above: Order Comment: [facility] performed at: [employer], [facility], [address] , [address] [place] [address], [address] [place] [address], Director Of Ancillary Services: Zander Doherty MD [facility] Collection Date/Time: [facility] Results Received Date/Time: [facility] Reported Date/Time: Performed By: #### 3 4F, [id number] #### [facility] [address] [place] [address] Protein Ql (U) TRACE Abnormal NEGATIVE [facility] Construction Technology Instructor Comment on above: Order Comment: [facility] performed at: [employer], [facility], [address] [facility], [address] [place] [address], [address] [place] [address], Director Of Ancillary Services: Zander Doherty MD [facility] Collection Date/Time: [facility] Results Received Date/Time: [facility] Reported Date/Time: Performed By: #### 3 4F, [id number] #### [facility] [address] [place] [address] RBC NONE SEEN Normal < OR = 2 [facility] Construction Technology Instructor Comment on above: Order Comment: [facility] performed at: [facility], [facility], [address] [facility], [address] [place] [address], [address] [place] [address], Director Of Ancillary Services: Zander Doherty MD [facility] Collection Date/Time: [facility] Results Received Date/Time: [facility] Reported Date/Time: Performed By: #### 3 4F, [id number] #### [facility] Default [address] [place] [address] Specific gravity (U) [Rel density] 1.034 Normal 1.001-1.035 [facility] Construction Technology Instructor Comment on above: Order Comment: [facility] performed at: [employer], [facility], [address] [facility], [address] [place] [address], [address] [place] [address], Director Of Ancillary Services: Zander Doherty MD [facility] Collection Date/Time: [facility] Results Received Date/Time: [facility] Reported Date/Time: Performed By: #### 3 4F, [id number] #### [facility] Default [address] [place] [address] SQUAMOUS EPITHELIAL CELLS 0-5 Normal < OR = 5 [facility] Construction Technology Instructor Comment on above: Order Comment: [facility] performed at: [employer], [facility], [address] [facility], [address] [place] [address], [address] [place] [address], Director Of Ancillary Services: Zander Doherty MD [facility] Date/Time: [facility] Results Received Date/Time: [facility] Reported Date/Time: Performed By: #### 3 4F, [id number] #### [facility] Default [address] [place] [address] WBC NONE SEEN Normal < OR = 5 [facility] Construction Technology Instructor Comment on above: Order Comment: [facility] performed at: [facility], [facility], [address] [facility], [address] [place] [address], [address] [place] [address], Director Of Ancillary Services: Zander Doherty MD [facility] Collection Date/Time: [id number] [facility] Results Received Date/Time: [id number] [facility] Reported Date/Time: Performed By: #### 3 4F, [id number] #### [facility] Default [address] [place] [address] TSHon 01-06-2022 TSH 0.208 uIU/mL Low 0.400-4.500 [facility] Construction Technology Instructor Comment on above: Performed By: #### T 4, CMP, TSH, LIPD, CBC #### [facility] [address] [place], [place] [id number] Total T4on 01-06-2022 T4 [Mass/Vol] 7.9 ug/dL Normal 4.5-11.7 [facility] Construction Technology Instructor Comment on above: Performed By: #### T 4, CMP, TSH, LIPD, CBC #### [facility] [address] [place], [place] [id number] US Thyroidon 01-06-2022 US Thyroid FINDINGS: Right [...] by Dimas Valentino on 01/07/2022 1021 Normal [facility] Construction Technology Instructor Encounters Encounter Date Encounter Type Care Provider Facility Start: 05-16-2024 End: 05-16-2024 ambulatory GIOVANY BRINK Not Available Start: 04-18-2024 End: 04-18-2024 ambulatory BRANDON BOB Not Available Start: 03-18-2024 End: 03-18-2024 ambulatory BRANDON BOB Not Available Start: 11-07-2022 End: 11-07-[address] CONCEPCIÓN PETERSON Facility:[facility] Start: 10-07-2022 End: 10-10-2022 ambulatory ISAIAH BANERJEE [facility] Start: 08-22-2022 ambulatory RENETTA COLLAZO [facility] Start: 08-20-2022 End: 08-21-2022 ambulatory BILL WORRELL [facility] Start: 03-15-2022 End: 03-15-[address] ELEANOR WILEY Facility:[facility] Payers Date Payer Category Payer Unknown [id number] 1996 Unknown [id number] 2.16.84 [id number] 1996 Unknown [id number] 2.16.84 [id number] 1996 Unknown [id number] 2.16.84 [id number] 1996 Unknown [id number] 2.16.84 [id number] 1996 Unknown [id number] 2.16.84 [id number] 1959 Medicaid [id number] 1958 Unknown [id number] Progress note 10-07-2022 Note Date & Type [...] a non-smoker and 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 Patient History No [...] bilateral facet arthropathy at L4-5. Assessment/Plan Joan Halbisen is a 27 y.o. year old female [...] additional personal documentation from me. [facility] Clinical Note 05-16-2022 Note Date & Type Note Facility 05-16-2022 Note HISTORY: Left sided pain and tingling PROCEDURE: [employer] HDXT 1.5. Sagittal T1, T2, STIR [...] signed by Dimas Valentino on 05/19/2022 1134 [facility] Construction Technology Instructor Summary Purpose Family History No Family History Records FoundNo Family History Records FoundNo Family History Records FoundNo Family History Records Found Advance Directives No Advanced Directives Records FoundNo Advanced Directives Records FoundNo Advanced Directives Records FoundNo Advanced Directives Records Found Additional Source Comments INFORMATION SOURCE (unrecogn ized section and content) DATE CREATED AUTHOR 05/19/2022 [facility] dical Specialist DATE CREATED AUTHOR AUTHOR'S ORGANIZ ATION 11/18/2022 [facility] DATE CREATED AUTHOR AUTHOR'S ORGANIZ ATION 02/07/2023 [facility] DATE CREATED AUTHOR AUTHOR'S ORGANIZ ATION 05/18/2024 [facility] dical Specialists [facility] FOR RECORDS PERTAINING TO PATIENTS WHO ARE [...] BE BASED ON THE PRIMARY CLINICAL RECORDS. [facility]. provides no warranty or guarantee of the accuracy or completeness of information in this document.
== END 2024-06-13 09:28 | disposition home or self-care (01) ==
LOC: NOMS 09:27
PROVIDERS: PCP Family Medicine; Visit Provider Obstetrics & Gynecology
DX: Z36.89 Encounter for other specified antenatal screening (principal); Z3A.20 20 weeks gestation of pregnancy
CPT/HCPCS: 76805; 76817

== ENCOUNTER 2024-07-21 09:29 | Outpatient (OUT) | payer BC, MEDICAID, SELFPAY ==
--- OUTSIDE RECORDS SUMMARY | 2024-07-21 09:46 | XMS_ITS | CCD ---
Author Organization [facility] Care Team Providers Care Fish And Wildlife Warden Name Role Phone DR ELEANOR WILEY Primary Care Unavailable NATALIIA INIGUEZ Admitting Unavailable NATALIIA INIGUEZ Consulting Unavailable NATALIIA INIGUEZ Attending Unavailable KRISTEN, DR BEEBE Attending Unavailable INEZ, DR ELEANOR Goldberg Primary Care Unavailable DR CONCEPCIÓN PETERSON Admitting Unavailable KRISTEN, DR BEEBE Consulting Unavailable BILL WORRELL Referring Unavailable RENETTA COLLAZO Attending Unavailable BILL WORRELL Attending Unavailable ISAIAH BANERJEE Attending Unavailable BRANDON BOB Attending Unavailable GIOVANY BRINK Attending Unavailable BRANDON BOB Attending Unavailable BRANDON BOB Attending Unavailable Problems [...] Test Name Value Interpretation Reference Range Facility [facility] 12-02-2022 Refill [id number] Joan Stone 1995 F Date Provider Department Center 12/02/2022 ISAIAH SALAZAR MP Family History Family Status - Relation Status Age at Mother Alive Father Alive Reason for Visit and Comments: Med Refill [192261] [facility] PAP ACOG PANEL 2: 21 to 29on 11-12-2022 . . Normal [facility] Comment on above: Performed By: #### [id number] #### [facility] [address] [place] [address] Dr. Asher Renee Age Gdln ACOG Testing [facility] Comment on above: Performed By: #### 4 [id number] #### [facility] [address] [place] [address] Dr. Asher Renee DIAGNOSIS: Comment [facility] Comment on above: Result Comment: NEGA TIVE FOR INTRAEPITHELIAL LESION OR MALIGNANCY. Performed By: #### 4 [id number] #### [facility] [address] [place] [address] Dr. Asher Renee Methodology: Comment [facility] Comment on above: Result Comment: This liquid based ThinPrep(R) pap test was screened with the use of an image guided system. Performed By: #### 4 [id number] #### [facility] [address] [place] [address] Dr. Asher Renee Note: Comment [facility] Comment on above: Result Comment: The Pap smear is a screening test designed to aid in the detection of premalignant and malignant conditions of the uterine cervix. It is not a diagnostic procedure and should not be used as the sole means of detecting cervical cancer. Both false-positive and false-negative reports do occur. . Performed By: #### 4 [id number] #### [facility] [address] [place] [address] Dr. Asher Renee Performed by: Comment [facility] Comment on above: Result Comment: Josephine Santiago, Marketing Associate (ASCP) Performed By: #### 4 [id number] #### [facility] [address] [place], [place] [address] Dr. Asher Renee Reflex Criteria: Comment [facility] Comment on above: Result Comment: The HPV DNA reflex criteria were not met with this specimen result therefore, no HPV testing was performed. . Performed By: #### 4 [id number] #### [facility] [address] [place], [place] [address] Dr. Asher Renee Specimen adequacy: Comment Normal [facility] Comment on above: Result Comment: Sati sfactory for evaluation. No endocervical component is identified. Performed By: #### 4 [id number] #### [facility] [address] [address] [address] Asher Renee 36on 10-28-2022 37 Approving, but needs appt for additional refills. [facility] Follow-Upon 10-07-2022 Follow-Up [id number] Joan Stone 1995 [facility]ly [facility] Provider Department Center 10/07/2022 ISAIAH SALAZAR MP ORTHO MPORTHO Family History Family Status - Relation Status Age at Mother Alive Father Alive Level of Service:62158 DE OFFICE/OUTPATIENT ESTABLISHED LOW MDM 20-29 MIN Reason for Visit and Comments: Follow-up [188021] - Pt here for low back pain [facility] 36on 09-22-2022 36 Approving, but needs appt for additional refills. [facility] Procedure Visiton 08-22-2022 Procedure Visit [id number] Joan Stone 1995 Provider Department Center 08/22/2022 RENETTA CHÁVEZ MP ORTHO MPORTHO Family History Family Status - Relation Status Age at Mother Alive Father Alive Level of Service:13468 DE OFFICE/OUTPATIENT NEW LOW MDM 30-44 MINUTES (25) Reason for Visit and Comments: Pain [136] - Left SI joint CSI [facility] Office Visiton 08-20-2022 Follow-up visit [id number] Joan Stone 1995 Date Provider Department Center 08/20/2022 BILL PARKS MP ORTHO MPORTHO Chart Close Cosign Required by: Bill Worrell MD[[id number]] No family history on file Level of Service:70985 DE OFFICE/OUTPATIENT NEW LOW MDM 30-44 MINUTES (GC) Normal [facility] US OB 1ST Trimesteron 2021 OB 1ST [...] by Ruy Luo on 03/17/2022 1627 Normal [facility] [address] Agent CBC AUTO DIFFon 03-15-2022 BASO # 0.0 103/ul Normal 0.0-0.1 [facility] Comment on above: Performed By: #### C BC #### [facility] [address] [address] [address] Asher Renee Basophils/100 WBC (Bld) 0.5 % Normal 0.2-2.0 [facility] Comment on above: Performed By: #### C BC #### [facility] [address] [address] [address] Asher Renee EO # 0.1 103/ul Normal 0.0-0.7 [facility] Comment on above: Performed By: #### C BC #### [facility] [address] [address] [address] Asher Renee Eosinophils/100 WBC (Bld) 1.1 % Normal 0.9-7.0 [facility] Comment on above: Performed By: #### C BC #### [facility] [address] [address] [address] Asher Renee Erythrocyte distribution width (RBC) [Ratio] 12.5 % Normal 11.0-15.0 [facility] Comment on above: Performed By: #### C BC #### [facility] [address] [place] [address] Dr. Asher Renee Hematocrit (Bld) [Volume fraction] 38.8 % Normal 36.0-48.0 [facility] Comment on above: Performed By: #### C BC #### [facility] [address] [place] [address] Dr. Asher Renee Hemoglobin (Bld) [Mass/Vol] 12.8 g/dL Normal 12.0-16.0 [facility] Comment on above: Performed By: #### C BC #### [facility] [address] [place] [address] Dr. Asher Renee IG # 0.02 10e3/ul Normal 0.00-0.03 [facility] Comment on above: Performed By: #### C BC #### [facility] [address] [place] [address] Dr. Asher Renee IG % 0.3 % Normal 0.0-0.5 [facility] Comment on above: Performed By: #### C BC #### [facility] [address] [place] [address] Dr. Asher Renee LYMPH # 1.7 103/ul Normal 1.2-3.8 [facility] Comment on above: Performed By: #### C BC #### [facility] [address] [place] [address] Dr. Asher Renee Lymphocytes/100 WBC (Bld) 26.2 % Normal 20.5-60.0 [facility] Comment on above: Performed By: #### C BC #### [facility] [address] [place] [address] Dr. Asher Renee MANUAL DIFF REQ NO Normal [facility] Comment on above: Performed By: #### C BC #### [facility] [address] [place] [address] Dr. Asher Renee MCH (RBC) [Entitic mass] 30.5 pg Normal 26.7-34.0 [facility] Comment on above: Performed By: #### C BC #### [facility] [address] [place] [address] Dr. Asher Renee MCHC (RBC) [Mass/Vol] 33.0 g/dL Normal 29.9-35.2 [facility] Comment on above: Performed By: #### C BC #### [facility] [address] [place] [address] Dr. Asher Renee MCV (RBC) [Entitic vol] 92.4 fL Normal 81.0-99.0 [facility] Comment on above: Performed By: #### C BC #### [facility] [address] [place] [address] Dr. Asher Renee MONO # 0.5 103/ul Normal 0.3-0.8 [facility] Comment on above: Performed By: #### C BC #### [facility] [address] [place] [address] Dr. Asher Renee Monocytes/100 WBC (Bld) 7.4 % Normal 1.7-12.0 [facility] Comment on above: Performed By: #### C BC #### [facility] [address] [place] [address] Dr. Asher Renee NEUT # 4.2 103/ul Normal 1.4-6.5 [facility] Comment on above: Performed By: #### C BC #### [facility] [address] [place] [address] Dr. Asher Renee Neutrophils/100 WBC (Bld) 64.5 % Normal 43.0-75.0 [facility] Comment on above: Performed By: #### C BC #### [facility] [address] [place] [address] Dr. Asher Renee Platelet mean volume (Bld) [Entitic vol] 10.8 fL Normal 9.5-13.5 [facility] Comment on above: Performed By: #### C BC #### [facility] [address] [address] [address] Asher Renee PLT 213 103/ul Normal 150-450 [facility] Comment on above: Performed By: #### C BC #### [facility] [address] [place] [address] Dr. Asher Renee RBC 4.20 106/ul Normal 4.20-5.40 [facility] Comment on above: Performed By: #### C BC #### [facility] [address] [address] [address] Asher Renee WBC 6.5 103/ul Normal 4.0-11.0 [facility] Comment on above: Performed By: #### C BC #### [facility] [address] [place] [address] Dr. Asher Renee PREG QUANT HCGon 03-15-2022 HCG QUANT 58 mIU/mL Normal [facility] Comment on above: Performed By: #### P REGQNT #### [facility] [address] [place] [address] Dr. Asher Renee HCG RANGE SEE BELOW Normal [facility] Comment on above: Result Comment: 5-50 0-1 WEEK 40-300 1-2 WEEKS 100-1,000 2-3 WEEKS 500-6,000 3-4 WEEKS 5,000-200,000 1-2 MONTHS 10,000-100,000 2-3 MONTHS 3,000-50,000 2ND TRIMESTER 1,000-50,000 3RD TRIMESTER Performed By: #### P REGQNT #### [facility] [address] [place] [address] Dr. Asher Renee PROF CHEM 8 (BAS METB)on Anion gap [Moles/Vol] 11.9 mmol/L Normal [facility] Comment on above: Performed By: #### B MP #### [facility] [address] [place] [address] Dr. Asher Renee Calcium [Mass/Vol] 9.0 mg/dL Normal 8.5-10.1 [facility] Comment on above: Performed By: #### B MP #### [facility] [address] [address] [address] Asher Renee Chloride [Moles/Vol] 105 mmol/L Normal 98-107 [facility] Comment on above: Performed By: #### B MP #### [facility] [address] [address] [address] Asher Renee CO2 [Moles/Vol] 27.7 mmol/L Normal 21.0-32.[address] [facility] Comment on above: Performed By: #### B MP #### [facility] [address] [address] [address] Asher Renee Creatinine [Mass/Vol] 0.55 mg/dL Normal 0.55-1.02 [facility] Comment on above: Performed By: #### B MP #### [facility] [address] [address] [address] Asher Renee EGFR-AF SWEDISH >60 Normal >=[address] [facility] Comment on above: Performed By: #### B MP #### [facility] [address] [address] [address] Asher Renee EGFR-NON AF SWEDISH >60 Normal >=60 [facility] Comment on above: Performed By: #### B MP #### [facility] [address] [address] [address] Asher Renee Glucose [Mass/Vol] 95 mg/dL Normal 74-106 [facility] Comment on above: Performed By: #### B MP #### [facility] [address] [address] [address] Asher Renee Potassium [Moles/Vol] 3.6 mmol/L Normal 3.5-5.1 [facility] Comment on above: Performed By: #### B MP #### [facility] [address] [address] [address] Asher Renee Sodium [Moles/Vol] 141 mmol/L Normal 136-145 [facility] Comment on above: Performed By: #### B MP #### [facility] [address] [address] [address] Asher Renee Urea nitrogen [Mass/Vol] 10.0 mg/dL Normal 7.0-18.0 [facility] Comment on above: Performed By: #### B MP #### [facility] [address] [place], [place] [address] Dr. Asher Renee Urea nitrogen/Creatinine [Mass ratio] 18.2 mg/mg Normal [facility] Comment on above: Performed By: #### B MP #### [facility] [address] [place], [place] [address] Dr. Asher Renee US RUQon 02-24-2022 US [...] by Dimas Valentino on 02/24/[address] [facility] XR Spine Lumbar Complete w/F jey AND [place] 02-14-2022 XR Spine Lumbar Complete w/Flex AND [...] by Dimas Valentino on 02/14/[address] [facility] Complete Blood Counton 01-06 Erythrocyte distribution width (RBC) [Ratio] 12.4 % Normal 11.0-15.0 [facility] Comment on above: Performed By: #### T 4, CMP, TSH, LIPD, CBC #### [facility] [address] [place], [place] [id number] Hematocrit (Bld) [Volume fraction] 45.5 % Normal 35.0-47.0 [facility] Comment on above: Performed By: #### T 4, CMP, TSH, LIPD, CBC #### [facility] [address] [place], [place] [id number] Hemoglobin (Bld) [Mass/Vol] 15.1 g/dL Normal 11.6-15.5 [facility] Comment on above: Performed By: #### T 4, CMP, TSH, LIPD, CBC #### [facility] [address] [place], [place] [id number] MCH (RBC) [Entitic mass] 30.3 pg Normal 27.0-33.0 [facility] Comment on above: Performed By: #### T 4, CMP, TSH, LIPD, CBC #### [facility] [address] [place], [place] [id number] MCHC (RBC) [Mass/Vol] 33.2 g/dL Normal 32.0-36.0 [facility] Comment on above: Performed By: #### T 4, CMP, TSH, LIPD, CBC #### [facility] [address] [place], [place] [id number] MCV (RBC) [Entitic vol] 91 fL Normal 80-100 [facility] Comment on above: Performed By: #### T 4, CMP, TSH, LIPD, CBC #### [facility] [address] [place], [place] [id number] Platelet mean volume (Bld) [Entitic vol] 11.30 fL Normal 7.50-12.50 [facility] Comment on above: Performed By: #### T 4, CMP, TSH, LIPD, CBC #### [facility] [address] [place], [place] [id number] Platelets (Bld) [#/Vol] 283 10*3/uL Normal 140-400 [facility] Comment on above: Performed By: #### T 4, CMP, TSH, LIPD, CBC #### [facility] [address] [place], [place] [id number] RBC (Bld) [#/Vol] 4.99 10*6/uL Normal 3.90-5.20 [facility] Comment on above: Performed By: #### T 4, CMP, TSH, LIPD, CBC #### [facility] [address] [place], [place] [id number] RDW-SD 41.5 fL Normal 37.0-50.0 [facility] [address] Agent Comment on above: Performed By: #### T 4, CMP, TSH, LIPD, CBC #### [facility] [address] [place], [place] [id number] WBC (Bld) [#/Vol] 6.1 10*3/uL Normal 3.8-11.0 Johana rn [place] [address] Agent Comment on above: Performed By: #### T 4, CMP, TSH, LIPD, CBC #### [facility] [address] [place], [place] [id number] Comprehensive Metabolic Pane kamran 01-06-2022 Albumin [Mass/Vol] 5.3 g/dL High 3.6-5.1 Johana rn [place] [address] Agent Comment on above: Performed By: #### T 4, CMP, TSH, LIPD, CBC #### [facility] [address] [place], [place] [id number] Albumin/Globulin [Mass ratio] 2.1 {ratio} Normal 1.0-2.5 [facility] [address] Agent Comment on above: Performed By: #### T 4, CMP, TSH, LIPD, CBC #### [facility] [address] [place], [place] [id number] ALP [Catalytic activity/Vol] 36 U/L Normal 35-119 [facility] [address] Agent Comment on above: Performed By: #### T 4, CMP, TSH, LIPD, CBC #### [facility] [address] [place], [place] [id number] ALT [Catalytic activity/Vol] 12 U/L Normal 6-33 [facility] [address] Agent Comment on above: Result Comment: 09/25 Female reference range changed. Performed By: #### T 4, CMP, TSH, LIPD, CBC #### [facility] [address] [place], [place] [id number] Anion gap [Moles/Vol] 19 mmol/L Normal 12-20 [facility] [address] Agent Comment on above: Result Comment: Effe ctive 10/31/2019 reference range changed. Performed By: #### T 4, CMP, TSH, LIPD, CBC #### [facility] [address] [place], [place] [id number] AST [Catalytic activity/Vol] 14 U/L Normal 9-34 [facility] Comment on above: Performed By: #### T 4, CMP, TSH, LIPD, CBC #### [facility] [address] [place], [place] [id number] Bilirubin [Mass/Vol] 1.22 mg/dL High 0.30-1.20 [facility] Comment on above: Performed By: #### T 4, CMP, TSH, LIPD, CBC #### [facility] [address] [place], [place] [id number] BUN/CREA 18 Ratio Normal 6-22 [facility] Comment on above: Performed By: #### T 4, CMP, TSH, LIPD, CBC #### [facility] [address] [place], [place] [id number] Calcium [Mass/Vol] 9.9 mg/dL Normal 8.6-10.2 [facility] Comment on above: Performed By: #### T 4, CMP, TSH, LIPD, CBC #### [facility] [address], [place] [id number] Chloride [Moles/Vol] 104 mmol/L Normal 98-107 [facility] Comment on above: Performed By: #### T 4, CMP, TSH, LIPD, CBC #### [facility] [address] [place], [place] [id number] CO2 [Moles/Vol] 23 mmol/L Normal 20-31 [facility] Comment on above: Performed By: #### T 4, CMP, TSH, LIPD, CBC #### [facility] [address] [place], [place] [id number] Creatinine [Mass/Vol] 0.6 mg/dL Normal 0.6-1.4 [facility] Comment on above: Performed By: #### T 4, CMP, TSH, LIPD, CBC #### [facility] [address] [place], [place] [id number] eGFRAA 163 mL/min/1.73m2 Normal >60 [facility] Comment on above: Performed By: #### T 4, CMP, TSH, LIPD, CBC #### [facility] [address], [place] [id number] eGFRNAA 135 mL/min/1.73m2 Normal >60 Donald eladio [place] [address] Agent Comment on above: Performed By: #### T 4, CMP, TSH, LIPD, CBC #### [facility] [address] [place], [place] [id number] Globulin (S) [Mass/Vol] 2.5 g/dL Normal 1.9-3.7 [facility] [address] Agent Comment on above: Performed By: #### T 4, CMP, TSH, LIPD, CBC #### [facility] [address] [place], [place] [id number] Glucose [Mass/Vol] 89 mg/dL Normal 65-99 [facility] [address] Agent Comment on above: Result Comment: For FASTING Glucose --- ADA reference ranges: Normal 65-99 mg/dl Prediabetes 100-125 Diabetes >/= 126 Performed By: #### T 4, CMP, TSH, LIPD, CBC #### [facility] [address] [place], [place] [id number] Potassium [Moles/Vol] 4.0 mmol/L Normal 3.5-5.5 [facility] [address] Agent Comment on above: Performed By: #### T 4, CMP, TSH, LIPD, CBC #### [facility] [address] [place], [place] [id number] Protein [Mass/Vol] 7.8 g/dL Normal 6.1-8.1 [facility] [address] Agent Comment on above: Performed By: #### T 4, CMP, TSH, LIPD, CBC #### [facility] [address] [place], [place] [id number] Sodium [Moles/Vol] 142 mmol/L Normal 135-146 [facility] july [place] [address] Agent Comment on above: Performed By: #### T 4, CMP, TSH, LIPD, CBC #### [facility] [address] [place], [place] [id number] Urea nitrogen [Mass/Vol] 10 mg/dL Normal 7-25 [facility] [address] Agent Comment on above: Performed By: #### T 4, CMP, TSH, LIPD, CBC #### [facility] [address] [place], [place] [id number] Lipid Panelon 01-06-2022 Cholesterol [Mass/Vol] 175 mg/dL Normal 125-200 [facility] Comment on above: Result Comment: Low risk < 200mg/dL Borderline risk 201-239 mg/dl High risk > or equal to 240 Performed By: #### T 4, CMP, TSH, LIPD, CBC #### [facility] [address] [place], [place] [id number] Cholesterol in HDL [Mass/Vol] 90 mg/dL Normal >40 [facility] Comment on above: Result Comment: High Cardiovascular Risk HDL <40 mg/dL Low Cardiovascular Risk HDL > or equal to 60 mg/dl Performed By: #### T 4, CMP, TSH, LIPD, CBC #### [facility] [address] [place], [place] [id number] Cholesterol in LDL [Mass/Vol] 75 mg/dL Normal [facility] Comment on above: Result Comment: LDL ATP III CLASSIFICATION LDL less than 100 mg/dl Optimal LDL 100-129 mg/dl Near or above optimal LDL 130-159 Borderline high LDL 160-189 High LDL greater than 189 mg/dl Very High Performed By: #### T 4, CMP, TSH, LIPD, CBC #### [facility] [address] [place], [place] [id number] Cholesterol in VLDL [Mass/Vol] 10 mg/dL Normal [facility] Comment on above: Performed By: #### T 4, CMP, TSH, LIPD, CBC #### [facility] [address] [place], [place] [id number] Cholesterol.total/C holesterol in HDL [Mass ratio] 2 {ratio} Normal [facility] Comment on above: Performed By: #### T 4, CMP, TSH, LIPD, CBC #### [facility] [address] [place], [place] [id number] Triglyceride [Mass/Vol] 51 mg/dL Normal 30-150 [facility] Comment on above: Result Comment: TRIG ATPIII CLASSIFICATIONS TRIG less than 150 mg/dl Normal TRIG 150-199 mg/dl Borderline High TRIG 200-500 mg/dl High TRIG greather than 500 mg/dl Very High Performed By: #### T 4, CMP, TSH, LIPD, CBC #### [facility] [address] [place], [place] [id number] Q - THYROID PEROXIDASE TPO A Bon 01-06-2022 THYROID PEROXIDASE ANTIBODIES <1 Normal <9 [facility] Comment on above: Order Comment: [facility] performed at: [employer] [facility], [address] , [address] [place] [address], [address] [place] [address], Kiln Feeder: Zander Doherty MD [facility] Collection Date/Time: [facility] Results Received Date/Time: [facility] Reported Date/Time: Performed By: #### 3 4F, [id number] #### [facility] [address] [place] [address] Q - URINALYSIS,COMPLETEon Appearance (U) TURBID Abnormal CLEAR [facility] Specialist Comment on above: Order Comment: [facility] performed at: [employer] [facility], [address], [address] [place] [address], [address] [place] [address], Kiln Feeder: Zander Doherty MD [facility] Date/Time: [facility] Results Received Date/Time: [facility] Reported Date/Time: Performed By: #### 3 4F, [id number] #### [facility] [address] [place] [address] BACTERIA NONE SEEN Normal NONE SEEN [facility] [address] Agent Comment on above: Order Comment: [facility] performed at: [employer] [facility], [address], [address] [place] [address], [address] [place] [address], Kiln Feeder: Zander Doherty MD [facility] Date/Time: [facility] Results Received Date/Time: [facility] Reported Date/Time: Performed By: #### 3 4F, [id number] #### [facility] [address] [place] [address] Bilirubin Ql (U) Negative Normal NEGATIVE [facility] Comment on above: Order Comment: [facility] performed at: [employer] [facility], [address] [facility], [address] [place] [address], [address] [place] [address], Kiln Feeder: Zander Doherty MD [facility] Date/Time: [facility] Results Received Date/Time: [facility] Reported Date/Time: Performed By: #### 3 4F, [id number] #### [facility] [address] [place] [address] CALCIUM OXALATE CRYSTALS MODERATE Abnormal NONE OR FEW [facility] [address] Agent Comment on above: Order Comment: [facility] performed at: [employer] [facility], [address] [facility], [address] [place] [address], [address] [place] [address], Kiln Feeder: Zander Doherty MD [facility] Date/Time: [facility] Results Received Date/Time: [facility] Reported Date/Time: Performed By: #### 3 4F, [id number] #### [facility] Default [address] [place] [address] Color (U) DARK YELLOW Normal YELLOW [facility] Right Of [address] Agent Comment on above: Order Comment: [facility] Testing performed at: [employer], [employer] [facility], [address] [facility], [address] [place] [address], [address] [place] [address], Kiln Feeder: Zander Doherty MD [facility] Collection Date/Time: [facility] Results Received Date/Time: [facility] Reported Date/Time: Performed By: #### 3 4F, [id number] #### [facility] Default [address] [place] [address] Glucose Ql (U) Negative Normal NEGATIVE [facility] Right Of [address] Agent Comment on above: Order Comment: [facility] Testing performed at: [employer] [facility], [address] [facility], [address] [place] [address], [address] [place] [address], Kiln Feeder: Zander Doherty MD [facility] Collection Date/Time: [facility] Results Received Date/Time: [facility] Reported Date/Time: Performed By: #### 3 4F, [id number] #### [facility] Default [address] [place] [address] HYALINE CAST NONE SEEN Normal NONE SEEN [facility] Right Of [address] Agent Comment on above: Order Comment: [facility] Testing performed at: [employer], [employer] [facility], [address] [place] , [address] [place] [address], [address] [place] [address], Kiln Feeder: Zander Doherty MD [facility] Collection Date/Time: [facility] Results Received Date/Time: [facility] Reported Date/Time: Performed By: #### 3 4F, [id number] #### [facility] Default [address] [place] [address] Ketones Ql (U) TRACE Abnormal NEGATIVE [facility] Right Of [address] Agent Comment on above: Order Comment: [facility] Testing performed at: [employer], [employer] [facility], [address] [facility], [address] [place] [address], [address] [place] [address], Kiln Feeder: Zander Doherty MD [facility] Collection Date/Time: [facility] Results Received Date/Time: [facility] Reported Date/Time: Performed By: #### 3 4F, [id number] #### [facility] Default [address] [place] [address] Leukocyte esterase Test strip Ql (U) Negative Normal NEGATIVE [facility] Right Of [address] Agent Comment on above: Order Comment: [facility] Testing performed at: [employer], [employer] [facility], [address] [place] , [address] [place] [address], [address] [place] [address], Kiln Feeder: Zander Doherty MD [facility] Collection Date/Time: [facility] Results Received Date/Time: [facility] Reported Date/Time: Performed By: #### 3 4F, [id number] #### [facility] Default [address] [place] [address] Nitrite Ql (U) Negative Normal NEGATIVE [facility] Right Of [address] Agent Comment on above: Order Comment: [facility] performed at: [employer], [employer] [facility], [address], [address] [place] [address], [address] [place] [address], Kiln Feeder: Zander Doherty MD [facility] Collection Date/Time: [facility] Results Received Date/Time: [facility] Reported Date/Time: Performed By: #### 3 4F, [id number] #### [facility] Default [address] [place] [address] OCCULT BLOOD Negative Normal NEGATIVE [facility] Right Of [address] Agent Comment on above: Order Comment: [facility] performed at: [employer], [employer] [facility], [address] [facility], [address] [place] [address], [address] [place] [address], Kiln Feeder: Zander Doherty MD [facility] Collection Date/Time: [facility] Results Received Date/Time: [facility] Reported Date/Time: Performed By: #### 3 4F, [id number] #### [facility] Default [address] [place] [address] pH (U) 5.5 [pH] Normal 5.0-8.0 [facility] Right Of [address] Agent Comment on above: Order Comment: [facility] Testing performed at: [employer], [employer] [facility], [address] [facility], [address] [place] [address], [address] [place] [address], Kiln Feeder: Zander Doherty MD [facility] Collection Date/Time: [facility] Results Received Date/Time: [facility] Reported Date/Time: Performed By: #### 3 4F, [id number] #### [facility] Default [address] [place] [address] Protein Ql (U) TRACE Abnormal NEGATIVE [facility] Right Of [address] Agent Comment on above: Order Comment: [facility] performed at: [employer], [employer] [facility], [address] [facility], [address] [place] [address], [address] [place] [address], Kiln Feeder: Zander Doherty MD [facility] Collection Date/Time: [facility] Results Received Date/Time: [facility] Reported Date/Time: Performed By: #### 3 4F, [id number] #### [facility] Default [address] [place] [place] [address] RBC NONE SEEN Normal < OR = 2 [facility] Right Of [address] Agent Comment on above: Order Comment: [facility] Testing performed at: Q, [employer] [facility], [address] [place] [address], [address] [place] [address], [address] [place] [address], Kiln Feeder: Zander Doherty MD [facility] Collection Date/Time: [facility] Results Received Date/Time: [facility] Reported Date/Time: Performed By: #### 3 4F, [id number] #### [facility] Default [address] [place] [address] Specific gravity (U) [Rel density] 1.034 Normal 1.001-1.035 [facility] Right [address] Agent Comment on above: Order Comment: [facility] Testing performed at: QPT, [employer] [facility], [address] [place] [address], [address] [place] [address], [address] [place] [address], Kiln Feeder: Zander Doherty MD [facility] Collection Date/Time: [facility] Results Received Date/Time: [facility] Reported Date/Time: Performed By: #### 3 4F, [id number] #### [facility] Default [address] [place] [address] SQUAMOUS EPITHELIAL CELLS 0-5 Normal < OR = 5 [facility] Right [address] Agent Comment on above: Order Comment: [facility] performed at: QPT, [employer] [facility], [address] [place] [address], [address] [place] [address], [address] [place] [address], Kiln Feeder: Zander Doherty MD [facility] Collection Date/Time: [facility] Results Received Date/Time: [facility] Reported Date/Time: Performed By: #### 3 4F, [id number] #### [facility] Default [address] [place] [address] WBC NONE SEEN Normal < OR = 5 [facility] Right [address] Agent Comment on above: Order Comment: [facility] performed at: QPT, [employer] [facility], [address] [place] [address], [address] [place] [address], [id number], Kiln Feeder: Zander Doherty MD [facility] Collection Date/Time: [facility] Results Received Date/Time: [facility] Reported Date/Time: Performed By: #### 3 4F, [id number] #### [facility] Default [address] [place] [address] TSHon 01-06-2022 TSH 0.208 uIU/mL Low 0.400-4.500 [facility] Right Of [address] Agent Comment on above: Performed By: #### T 4, CMP, TSH, LIPD, CBC #### [facility] [address] [place] [id number] Total T4on 01-06-2022 T4 [Mass/Vol] 7.9 ug/dL Normal 4.5-11.7 [facility] Right Of [address] Agent Comment on above: Performed By: #### T 4, CMP, TSH, LIPD, CBC #### [facility] [address] [place] [id number] [place] Thyroidon 01-06-2022 US Thyroid FINDINGS: Right [...] recommended. Report reported and signed by Dimas Valentnio on 01/07/2022 1021 Normal [facility] Right [address] Agent Encounters Encounter Date Encounter Type Care Provider Facility Start: 07-12-2024 End: 07-12-2024 ambulatory BRANDON LISBETH Not Available Start: 06-13-2024 End: 06-13-2024 ambulatory BRANDON LISBETH Not Available Start: 05-16-2024 End: 05-16-2024 ambulatory GIOVANY BRINK Not Available Start: 04-18-2024 End: 04-18-2024 ambulatory BRANDON LISBETH Not Available Start: 03-18-2024 End: 03-18-2024 ambulatory BRANDON LISBETH Not Available Start: 11-07-2022 End: 11-07-[address] CONCEPCIÓN PETERSON Facility:[facility] Start: 10-07-2022 End: 10-10-2022 ambulatory ISAIAH BANERJEE [facility] Start: 08-22-2022 ambulatory RENETTA COLLAZO [facility] Start: 08-20-2022 End: 08-21-2022 ambulatory BILL WORRELL [facility] Start: 03-15-2022 End: 03-15-[address] ELEANOR WILEY Facility:[facility] Payers Date Payer Category Payer Unknown [id number] 1995 Unknown [id number] 2.16.84 [id number] 1996 Unknown [id number] 2.16.84 [id number] 1996 Unknown [id number] 2.16.84 [id number] 1996 Unknown [id number] 2.16.84 [id number] 1996 Unknown [id number] 2.16.84 [id number] 1996 Unknown [id number] 2.16.84 [id number] 1996 Unknown [id number] 2.16.84 [id number] 1958 Medicaid [id number] 1958 Unknown [id number] Progress note 10-07-2022 Note Date & Type [...] a non-smoker and 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 Patient History No [...] additional personal documentation from me. [facility] Clinical Note 05-16-2022 Note Date & Type Note Facility 05-16-2022 Note HISTORY: Left sided pain and tingling PROCEDURE: [employer] Sign[employer] HDXT 1.5. Sagittal T1, T2, STIR [...] signed by Dimas Valentino on 05/19/2022 [address] [facility] Right [address] Agent Summary Purpose Family History No Family History Records FoundNo Family History Records FoundNo Family History Records FoundNo Family History Records Found Advance Directives No Advanced Directives Records FoundNo Advanced Directives Records FoundNo Advanced Directives Records FoundNo Advanced Directives Records Found Additional Source Comments INFORMATION SOURCE (unrecogn ized section and content) DATE CREATED AUTHOR 05/19/2022 [facility] Specialist DATE CREATED AUTHOR AUTHOR'S ORGANIZ ATION 11/18/2022 [facility] DATE CREATED AUTHOR AUTHOR'S ORGANIZ ATION 02/07/2023 [facility] DATE CREATED AUTHOR AUTHOR'S ORGANIZ ATION 07/13/2024 [facility] Specialists EPIC FOR RECORDS PERTAINING TO [...] BE BASED ON THE PRIMARY CLINICAL RECORDS. [facility] [employer] [facility]. provides no warranty or guarantee of the accuracy or completeness of information in this document.
[2024-07-21 10:41] LABS: Basophils Percent Auto 0.2 % (0.2-2.0); Eosinophils Absolute Auto 0.1 10^3/uL (0.0-0.7); Eosinophils Percent Auto 0.8 % (0.9-7.0); Hemoglobin 12.1 g/dL (12.0-16.0); Immature Granulocytes Abs Auto 0.03 10^3/uL (0.00-0.03); Immature Granulocytes Pct Auto 0.3 % (0.0-0.5); Lymphocytes Percent Auto 11.4 % (20.5-60.0); Mean Corpuscular HGB Conc 34.6 g/dL (29.9-35.2); Mean Corpuscular Hemoglobin 31.4 pg (26.7-34.0); Mean Corpuscular Volume 90.9 fL (81.0-99.0); Mean Platelet Volume 10.2 fL (9.5-13.5); Monocytes Absolute Auto 0.5 10^3/uL (0.3-0.8); Monocytes Percent Auto 5.3 % (1.7-12.0); Neutrophils Absolute Auto 7.3 10^3/uL (1.4-6.5); Platelet Count 202 10^3/uL (150-450); Red Blood Count 3.85 10^6/uL (4.20-5.40); White Blood Count 8.9 10^3/uL (4.0-11.0)
[2024-07-21 11:23] LABS: Glucose 1 Hour 124 mg/dL (<130)
== END 2024-07-21 09:30 | disposition home or self-care (01) ==
LOC: LAB 09:29
PROVIDERS: PCP Family Medicine; Visit Provider Obstetrics & Gynecology
DX: Z13.1 Encounter for screening for diabetes mellitus (principal)
CPT/HCPCS: 36415; 82950; 85025

== ENCOUNTER 2024-08-18 08:05 | Outpatient (OUT) | payer BC, MEDICAID, SELFPAY ==
--- NOTE | 2024-08-18 08:07 | US_ITS ---
[address] [address] Patient Name: FLAKITO TRIVEDI MRN: [id number] date: 1995 Sex: F Assigned Patient Location: [facility] Current Patient Location: [facility] Accession/Order Number: [id number] Exam Date: 08/18/2024 08:10 Report Date: 08/18/2024 09:33 At the request of: GIOVANY BRINK Procedure: US OB growth EXAMINATION: US OB growth HISTORY: SIZE INCONSISTENT WITH DATES COMPARISON: Ultrasound OB anatomy 06/13/2024 FINDINGS: Heart Rate: 137 bpm Amniotic Fluid Volume: 11.5 cm; normal range. Number: 1 Position: BREECH BIOMETRY: BPD: 7.02 cm; 20 weeks 1 day; 3.20 % HC: 26.68 cm; 29 weeks 0 days; 3.90 % AC: 24.57 cm; 28 weeks 6 days; 14 % FL: 5.76 cm; 30 weeks 1 day; 39.50 % EFW: 1230.14 g; 15.60 % FL/AC: 23.44 FL/BPD: 82.05 HC/AC: 1.09 GESTATIONAL AGE: Age by EDC: 30 weeks 0 days SINGH by EDC: 2024-10-27 Age by US: 29 weeks 0 days SINGH by US: 2024-11-03 US/US OB growth IMPRESSION: 1. Single live intrauterine with growth detailed above. Electronically authenticated by: EMILY HANNA Date: 08/18/2024 09:33
--- OUTSIDE RECORDS SUMMARY | 2024-08-18 08:11 | XMS_ITS | CCD ---
Author Organization [facility] Inform ion Partnership [facility] Care Team Providers Care Quad Stayer Name Role Phone DR SARITHA WILEY Primary Care Unavailable NATALIIA INIGUEZ Admitting Unavailable NATALIIA INIGUEZ Consulting Unavailable NATALIIA INIGUEZ Attending Unavailable KRISTEN, DR BEEBE Attending Unavailable DR SARITHA WILEY Primary Care Unavailable DR CONCEPCIÓN PETERSON Admitting Unavailable DR CONCEPCIÓN PETERSON Consulting Unavailable BILL WORRELL Referring Unavailable RENETTA COLLAZO Attending Unavailable BILL WORRELL Attending Unavailable ISAIAH BANERJEE Attending Unavailable BRANDON LEE Attending Unavailable MARY JO BRINK Attending Unavailable BRANDON LEE Attending Unavailable BRANDON LEE Attending Unavailable MARY JO BRINK Attending Unavailable Saritha Wiley MD Primary Care Provider Joi Bravo MD Unavailable Medications Current Medications Medication Drug Class(es) Dates Sig (Normalized) Sig (Original) [id number] 200 actuat albuterol 0.09 mg/actuat metered dose inhaler (3 sources) beta2-Adrenergic Agonist take 2 puff(s) by inhalation every six hours albuterol HFA 90 mcg/act inhaler Inhale 2 puffs every 6 (six) hours if needed Active Xreduzug-Upb-Ny-FA ( 1 + IRON PO) (3 sources) Nhussavd-Tgz-Su-FA ( 1 + IRON PO) Active Problems Active Problems Problem Classification Problem Date Documented Date Episodic/Chronic Immunizations and screening for infectious disease (1 source) Encounter for screening for human papillomavirus (HPV); Translations: [ENC SCREENING HUMAN PAPILLOMAVIRUS] Onset: 11-13-2022 Episodic Other complications of (2 sources) size does not accord with dates; Translations: [Uterine size-date discrepancy, unspecified trimester] 08-02-2024 Episodic Other and delivery including normal (2 sources) Second trimester ; Translations: [Encounter for supervision of normal , unspecified, second trimester] 08-02-2024 Episodic Other screening for suspected conditions (not mental disorders or infectious disease) (4 sources) Encounter for screening for malignant neoplasm of cervix; Translations: [ENC SCREENING MALIG NEOPLASM CERV] Onset: 11-07-2022 Episodic Residual codes; unclassified (2 sources) Gestation period, 27 weeks; Translations: [27 weeks gestation of ] 08-02-2024 Episodic Unclassified (1 source) Low back pain, [...] Test Name Value Interpretation Reference Range Facility Urinalysis macro (dipstick) panel (U)on 08-02-2024 Bilirubin, UA Negative Negative - 4(70) +++ mg/dL [facility] Blood, UA Negative Negative - 50 Karl/mcL [facility] Clarity, UA Clear [facility] re Color, UA Yellow [facility] Glucose, UA Negative Negative - 1999(110) ++++ mg/dL [facility] Interpretation and review of laboratory results Normal [facility] re Ketones, UA Negative Negative - 160(16) ++++ mg/dL [facility] Leukocytes, UA Negative Negative - 500+++ Serene/mcL [facility] Nitrite, UA Negative Negative - Positive [facility] pH, UA 6.5 5 - 9 [facility] e Protein, UA Negative Negative - 1999(20) ++++ mg/dL [facility] Spec Grav, UA 1.025 1 - 1.03 [facility] Urobilinogen, UA 0.2 0.2 - 12 mg/dL [facility] Refillon 12-02-2022 Refill [id number] Joan Stone 1995 F Date Provider Department Center 12/02/2022 ISAIAH SALAZAR MP Family History Family Status - Relation Status Age at Mother Alive Father Alive Reason for Visit and Comments: Med Refill [[id number]] [facility] PAP ACOG PANEL 2: 21 to 29on 11-12-2022 . . Normal [facility] Comment on above: Performed By: #### [id number] #### [facility] [address] [place] [address] Dr. Asher Renee Age Gdln ACOG Testing - [facility] Comment on above: Performed By: #### [id number] #### [facility] [address] [place] [address] Dr. Asher Renee DIAGNOSIS: Comment [facility] Comment on above: Result Comment: NEGA TIVE FOR INTRAEPITHELIAL LESION OR MALIGNANCY. Performed By: #### 4 [id number] #### [facility] [address] [place] [address] Dr. Asher Renee Methodology: Comment [facility] Comment on above: Result Comment: This liquid based ThinPrep(R) pap test was screened with the use of an image guided system. Performed By: #### 4 [id number] #### [facility] [address] [place] [address] Dr. Asher Renee Note: Comment [facility] Comment on above: Result Comment: The Pap smear is a screening test designed to aid in the detection of premalignant and malignant conditions of the uterine cervix. It is not a diagnostic procedure and should not be used as the sole means of detecting cervical cancer. Both false-positive and false-negative reports do occur. . Performed By: #### 4 [id number] #### [facility] [address] [place] [address] Dr. Asher Renee Performed by: Comment [facility] Comment on above: Result Comment: Josephine Santiago, Spindle Tester (ASCP) Performed By: #### 4 [id number] #### [facility] [address] [place], [place] [address] Dr. Asher Renee Reflex Criteria: Comment [facility] Comment on above: Result Comment: The HPV DNA reflex criteria were not met with this specimen result therefore, no HPV testing was performed. . Performed By: #### 4 [id number] #### [facility] [address] [place], [place] [address] Dr. Asher Renee Specimen adequacy: Comment Normal [facility] Comment on above: Result Comment: Sati sfactory for evaluation. No endocervical component is identified. Performed By: #### 4 [id number] #### [facility] [address] [place] [address] [address] Asher Renee 36on 10-28-2022 37 Approving, but needs appt for additional refills. [facility] Follow-Upon 10-07-2022 Follow-Up [id number] Joan Stone 1995 Date Provider Department Center 10/07/2022 ISAIAH SALAZAR MP ORTHO MPORTHO Family History Family Status - Relation Status Age at Mother Alive Father Alive Level of Service:53313 [facility] OFFICE/OUTPATIENT ESTABLISHED LOW MDM 20-29 MIN Reason for Visit and Comments: Follow-up [275197] - Pt here for low back pain [facility] 36on 09-22-2022 36 Approving, but needs appt for additional refills. [facility] Procedure Visiton 08-22-2022 Procedure Visit [id number] Joan Stone 1995 Date Provider Department Center 08/22/2022 RENETTA CHÁVEZ MP ORTHO MPORTHO Family History Family Status - Relation Status Age at Mother Alive Father Alive Level of Service:15873 [facility] OFFICE/OUTPATIENT NEW LOW MDM 30-44 MINUTES (25) Reason for Visit and Comments: Pain [136] - Left SI joint CSI USG [facility] Office Visiton 08-20-2022 Follow-up visit [id number] oJan Stone 1995 Date Provider Department Center 08/20/2022 BILL PARKS MP ORTHO MPORTHO Chart Close Cosign Required by: Bill Worrell MD[[id number]] No family history on file Level of Service:18776 [facility] OFFICE/OUTPATIENT NEW LOW MDM 30-44 MINUTES (GC) Normal [facility] US OB 1ST Trimesteron 2021 OB 1ST [...] by Ruy Luo on 03/17/2022 1627 Normal [facility] [employer] CBC AUTO DIFFon 03-15-2022 BASO # 0.0 103/ul Normal 0.0-0.1 [facility] Comment on above: Performed By: #### C BC #### [facility] [address] [place] [address] [address] Asher Renee Basophils/100 WBC (Bld) 0.5 % Normal 0.2-2.0 [facility] Comment on above: Performed By: #### C BC #### [facility] [address] [place] [address] [address] Asher Renee EO # 0.1 103/ul Normal 0.0-0.7 [facility] Comment on above: Performed By: #### C BC #### [facility] [address] [place] [address] [address] Asher Renee Eosinophils/100 WBC (Bld) 1.1 % Normal 0.9-7.0 [facility] Comment on above: Performed By: #### C BC #### [facility] [address] [place] [address] [address] Asher Renee Erythrocyte distribution width (RBC) [Ratio] 12.5 % Normal 11.0-15.0 [facility] Comment on above: Performed By: #### C BC #### [facility] [address] [place] [address] Dr. Asher Renee Hematocrit (Bld) [Volume fraction] 38.8 % Normal 36.0-48.0 [facility] Comment on above: Performed By: #### C BC #### [facility] [address] [place] [address] Dr. Asher Renee Hemoglobin (Bld) [Mass/Vol] 12.8 g/dL Normal 12.0-16.0 [facility] Comment on above: Performed By: #### C BC #### [facility] [address] [place] [address] Dr. Asher Renee IG # 0.02 10e3/ul Normal 0.00-0.03 [facility] Comment on above: Performed By: #### C BC #### [facility] [address] [place] [address] Dr. Asher Renee IG % 0.3 % Normal 0.0-0.5 [facility] Comment on above: Performed By: #### C BC #### [facility] [address] [place] [address] Dr. Asher Renee LYMPH # 1.7 103/ul Normal 1.2-3.8 [facility] Comment on above: Performed By: #### C BC #### [facility] [address] [place] [address] Dr. Asher Renee Lymphocytes/100 WBC (Bld) 26.2 % Normal 20.5-60.0 [facility] Comment on above: Performed By: #### C BC #### [facility] [address] [place] [address] Dr. Asher Renee MANUAL DIFF REQ NO Normal [facility] Comment on above: Performed By: #### C BC #### [facility] [address] [place] [address] Dr. Asher Renee MCH (RBC) [Entitic mass] 30.5 pg Normal 26.7-34.0 [facility] Comment on above: Performed By: #### C BC #### [facility] [address] [place] [address] Dr. Asher Renee MCHC (RBC) [Mass/Vol] 33.0 g/dL Normal 29.9-35.2 [facility] Comment on above: Performed By: #### C BC #### [facility] [address] [place] [address] Dr. Asher Renee MCV (RBC) [Entitic vol] 92.4 fL Normal 81.0-99.0 [facility] Comment on above: Performed By: #### C BC #### [facility] [address] [place] [address] Dr. Asher Renee MONO # 0.5 103/ul Normal 0.3-0.8 [facility] Comment on above: Performed By: #### C BC #### [facility] [address] [place] [address] Dr. Asher Renee Monocytes/100 WBC (Bld) 7.4 % Normal 1.7-12.0 [facility] Comment on above: Performed By: #### C BC #### [facility] [address] [place] [address] Dr. Asher Renee NEUT # 4.2 103/ul Normal 1.4-6.5 [facility] Comment on above: Performed By: #### C BC #### [facility] [address] [place] [address] Dr. Asher Renee Neutrophils/100 WBC (Bld) 64.5 % Normal 43.0-75.0 [facility] Comment on above: Performed By: #### C BC #### [facility] [address] [place] [address] Dr. Asher Renee Platelet mean volume (Bld) [Entitic vol] 10.8 fL Normal 9.5-13.5 [facility] Comment on above: Performed By: #### C BC #### [facility] [address] [place] [address] [address] Asher Renee PLT 213 103/ul Normal 150-450 [facility] Comment on above: Performed By: #### C BC #### [facility] [address] [place] [address] Dr. Asher Renee RBC 4.20 106/ul Normal 4.20-5.40 [facility] Comment on above: Performed By: #### C BC #### [facility] [address] [place] [address] [address] Asher Renee WBC 6.5 103/ul Normal 4.0-11.0 [facility] Comment on above: Performed By: #### C BC #### [facility] [address] [place] [address] Dr. Asher Renee PREG QUANT HCGon 03-15-2022 HCG QUANT 58 mIU/mL Normal [facility] Comment on above: Performed By: #### P REGQNT #### [facility] [address] [place] [address] Dr. Asher Renee HCG RANGE SEE BELOW Normal [facility] Comment on above: Result Comment: 5-50 0-1 WEEK 40-300 1-2 WEEKS 100-1,000 2-3 WEEKS 500-6,000 3-4 WEEKS 5,000-200,000 1-2 MONTHS 10,000-100,000 2-3 MONTHS 3,000-50,000 2ND TRIMESTER 1,000-50,000 3RD TRIMESTER Performed By: #### P REGQNT #### [facility] [address] [place] [address] Dr. Asher Renee PROF CHEM 8 (BAS METB)on Anion gap [Moles/Vol] 11.9 mmol/L Normal [facility] Comment on above: Performed By: #### B MP #### [facility] [address] [place] [address] Dr. Asher Renee Calcium [Mass/Vol] 9.0 mg/dL Normal 8.5-10.1 [facility] Comment on above: Performed By: #### B MP #### [facility] [address] [place] [address] [address] Asher Renee Chloride [Moles/Vol] 105 mmol/L Normal 98-107 [facility] Comment on above: Performed By: #### B MP #### [facility] [address] [place] [address] [address] Asher Renee CO2 [Moles/Vol] 27.7 mmol/L Normal 21.0-32.0 [facility] Comment on above: Performed By: #### B MP #### [facility] [address] [place] [address] [address] Asher Renee Creatinine [Mass/Vol] 0.55 mg/dL Normal 0.55-1.02 [facility] Comment on above: Performed By: #### B MP #### [facility] [address] [place] [address] Dr. Asher Renee EGFR-AF NIGERIAN >60 Normal >=60 [facility] Comment on above: Performed By: #### B MP #### [facility] [address] [place] [address] [address] Asher Renee EGFR-NON AF NIGERIAN >60 Normal >=60 [facility] Comment on above: Performed By: #### B MP #### [facility] [address] [place] [address] [address] Asher Renee Glucose [Mass/Vol] 95 mg/dL Normal 74-106 [facility] Comment on above: Performed By: #### B MP #### [facility] [address] [place] [address] [address] Asher Renee Potassium [Moles/Vol] 3.6 mmol/L Normal 3.5-5.1 [facility] Comment on above: Performed By: #### B MP #### [facility] [address] [place] [address] [address] Asher Renee Sodium [Moles/Vol] 141 mmol/L Normal 136-145 [facility] Comment on above: Performed By: #### B MP #### [facility] [address] [place] [address] [address] Asher Renee Urea nitrogen [Mass/Vol] 10.0 mg/dL Normal 7.0-18.0 [facility] Comment on above: Performed By: #### B MP #### [facility] [address] [place], [place] [address] Dr. Asher Renee Urea nitrogen/Creatinine [Mass ratio] 18.2 mg/mg Normal [facility] Comment on above: Performed By: #### B MP #### [facility] [address] [place], [place] [address] Dr. Asher Renee US RUQon 02-24-2022 US [...] by Dimas Valentino on 02/24/2022 1035 Normal [facility] XR Spine Lumbar Complete w/F jey AND [place] 02-14-2022 XR Spine Lumbar Complete w/Flex AND [...] by Dimas Valentino on 02/14/2022 1555 Normal [facility] Complete Blood Counton 01-06 Erythrocyte distribution width (RBC) [Ratio] 12.4 % Normal 11.0-15.0 [facility] Comment on above: Performed By: #### T 4, CMP, TSH, LIPD, CBC #### [facility] [address] [place] [place] [id number] Hematocrit (Bld) [Volume fraction] 45.5 % Normal 35.0-47.0 [facility] Comment on above: Performed By: #### T 4, CMP, TSH, LIPD, CBC #### [facility] [address] [place], [place] [id number] Hemoglobin (Bld) [Mass/Vol] 15.1 g/dL Normal 11.6-15.5 [facility] Comment on above: Performed By: #### T 4, CMP, TSH, LIPD, CBC #### [facility] [address] [place], [place] [id number] MCH (RBC) [Entitic mass] 30.3 pg Normal 27.0-33.0 [facility] Comment on above: Performed By: #### T 4, CMP, TSH, LIPD, CBC #### [facility] [address] [place], [place] [id number] MCHC (RBC) [Mass/Vol] 33.2 g/dL Normal 32.0-36.0 [facility] Comment on above: Performed By: #### T 4, CMP, TSH, LIPD, CBC #### [facility] [address] [place], [place] [id number] MCV (RBC) [Entitic vol] 91 fL Normal 80-100 [facility] Comment on above: Performed By: #### T 4, CMP, TSH, LIPD, CBC #### [facility] [address] [place], [place] [id number] Platelet mean volume (Bld) [Entitic vol] 11.30 fL Normal 7.50-12.50 [facility] Comment on above: Performed By: #### T 4, CMP, TSH, LIPD, CBC #### [facility] [address] [place], [place] [id number] Platelets (Bld) [#/Vol] 283 10*3/uL Normal 140-400 [facility] Comment on above: Performed By: #### T 4, CMP, TSH, LIPD, CBC #### [facility] [address] [place], [place] [id number] RBC (Bld) [#/Vol] 4.99 10*6/uL Normal 3.90-5.20 [facility] Comment on above: Performed By: #### T 4, CMP, TSH, LIPD, CBC #### [facility] [address] [place], [place] [id number] RDW-SD 41.5 fL Normal 37.0-50.0 [facility] [employer] Comment on above: Performed By: #### T 4, CMP, TSH, LIPD, CBC #### [facility] [address] [place], [place] [id number] WBC (Bld) [#/Vol] 6.1 10*3/uL Normal 3.8-11.0 Johana rn [place] [employer] Comment on above: Performed By: #### T 4, CMP, TSH, LIPD, CBC #### [facility] [address] [place], [place] [id number] Comprehensive Metabolic Pane kamran 01-06-2022 Albumin [Mass/Vol] 5.3 g/dL High 3.6-5.1 Johana rn [place] [employer] Comment on above: Performed By: #### T 4, CMP, TSH, LIPD, CBC #### [facility] [address] [place], [place] [id number] Albumin/Globulin [Mass ratio] 2.1 {ratio} Normal 1.0-2.5 [facility] [employer] Comment on above: Performed By: #### T 4, CMP, TSH, LIPD, CBC #### [facility] [address] [place], [place] [id number] ALP [Catalytic activity/Vol] 36 U/L Normal 35-119 [facility] [employer] Comment on above: Performed By: #### T 4, CMP, TSH, LIPD, CBC #### [facility] [address] [place], [place] [id number] ALT [Catalytic activity/Vol] 12 U/L Normal 6-33 [facility] [employer] Comment on above: Result Comment: 09/25 Female reference range changed. Performed By: #### T 4, CMP, TSH, LIPD, CBC #### [facility] [address] [place], [place] [id number] Anion gap [Moles/Vol] 19 mmol/L Normal 12-20 [facility] [employer] Comment on above: Result Comment: Effe ctive 10/31/2019 reference range changed. Performed By: #### T 4, CMP, TSH, LIPD, CBC #### [facility] [address] [place], [place] [id number] AST [Catalytic activity/Vol] 14 U/L Normal 9-34 [facility] Comment on above: Performed By: #### T 4, CMP, TSH, LIPD, CBC #### [facility] [address] [place], [place] [id number] Bilirubin [Mass/Vol] 1.22 mg/dL High 0.30-1.20 [facility] Comment on above: Performed By: #### T 4, CMP, TSH, LIPD, CBC #### [facility] [address] [place], [place] [id number] BUN/CREA 18 Ratio Normal 6-22 [facility] Comment on above: Performed By: #### T 4, CMP, TSH, LIPD, CBC #### [facility] [address] [place], [place] [id number] Calcium [Mass/Vol] 9.9 mg/dL Normal 8.6-10.2 [facility] [place] [facility] Comment on above: Performed By: #### T 4, CMP, TSH, LIPD, CBC #### [facility] [address] [place], [place] [id number] Chloride [Moles/Vol] 104 mmol/L Normal 98-107 [facility] Comment on above: Performed By: #### T 4, CMP, TSH, LIPD, CBC #### [facility] [address] [place], [place] [id number] CO2 [Moles/Vol] 23 mmol/L Normal 20-31 [facility] Comment on above: Performed By: #### T 4, CMP, TSH, LIPD, CBC #### [facility] [address] [place], [place] [id number] Creatinine [Mass/Vol] 0.6 mg/dL Normal 0.6-1.4 [facility] Comment on above: Performed By: #### T 4, CMP, TSH, LIPD, CBC #### [facility] [address] [place], [place] [id number] eGFRAA 163 mL/min/1.73m2 Normal >60 [facility] Comment on above: Performed By: #### T 4, CMP, TSH, LIPD, CBC #### [facility] [address] [place], [place] [id number] eGFRNAA 135 mL/min/1.73m2 Normal >60 Donald eladio [place] [employer] Comment on above: Performed By: #### T 4, CMP, TSH, LIPD, CBC #### [facility] [address] [place], [place] [id number] Globulin (S) [Mass/Vol] 2.5 g/dL Normal 1.9-3.7 [facility] [employer] Comment on above: Performed By: #### T 4, CMP, TSH, LIPD, CBC #### [facility] [address] [place], [place] [id number] Glucose [Mass/Vol] 89 mg/dL Normal 65-99 [facility] [employer] Comment on above: Result Comment: For FASTING Glucose --- ADA reference ranges: Normal 65-99 mg/dl Prediabetes 100-125 Diabetes >/= 126 Performed By: #### T 4, CMP, TSH, LIPD, CBC #### [facility] [address] [place], [place] [id number] Potassium [Moles/Vol] 4.0 mmol/L Normal 3.5-5.5 [facility] [employer] Comment on above: Performed By: #### T 4, CMP, TSH, LIPD, CBC #### [facility] [address] [place], [place] [id number] Protein [Mass/Vol] 7.8 g/dL Normal 6.1-8.1 [facility] [employer] Comment on above: Performed By: #### T 4, CMP, TSH, LIPD, CBC #### [facility] [address] [place], [place] [id number] Sodium [Moles/Vol] 142 mmol/L Normal 135-146 [facility] [employer] Comment on above: Performed By: #### T 4, CMP, TSH, LIPD, CBC #### [facility] [address] [place], [place] [id number] Urea nitrogen [Mass/Vol] 10 mg/dL Normal 7-25 [facility] [employer] Comment on above: Performed By: #### T 4, CMP, TSH, LIPD, CBC #### [facility] [address] [place], [place] [id number] Lipid Panelon 01-06-2022 Cholesterol [Mass/Vol] 175 mg/dL Normal 125-200 [facility] Comment on above: Result Comment: Low risk < 200mg/dL Borderline risk 201-239 mg/dl High risk > or equal to 240 Performed By: #### T 4, CMP, TSH, LIPD, CBC #### [facility] [address] [place], [place] [id number] Cholesterol in HDL [Mass/Vol] 90 mg/dL Normal >40 [facility] Comment on above: Result Comment: High Cardiovascular Risk HDL <40 mg/dL Low Cardiovascular Risk HDL > or equal to 60 mg/dl Performed By: #### T 4, CMP, TSH, LIPD, CBC #### [facility] [address] [place], [place] [id number] Cholesterol in LDL [Mass/Vol] 75 mg/dL Normal [facility] Comment on above: Result Comment: LDL ATP III CLASSIFICATION LDL less than 100 mg/dl Optimal LDL 100-129 mg/dl Near or above optimal LDL 130-159 Borderline high LDL 160-189 High LDL greater than 189 mg/dl Very High Performed By: #### T 4, CMP, TSH, LIPD, CBC #### [facility] [address] [place], [place] [id number] Cholesterol in VLDL [Mass/Vol] 10 mg/dL Normal [facility] Specialist Comment on above: Performed By: #### T 4, CMP, TSH, LIPD, CBC #### [facility] [address] [place], [place] [id number] Cholesterol.total/C holesterol in HDL [Mass ratio] 2 {ratio} Normal [facility] Specialist Comment on above: Performed By: #### T 4, CMP, TSH, LIPD, CBC #### [facility] [address] [place], [place] [id number] Triglyceride [Mass/Vol] 51 mg/dL Normal 30-150 [facility] Specialist Comment on above: Result Comment: TRIG ATPIII CLASSIFICATIONS TRIG less than 150 mg/dl Normal TRIG 150-199 mg/dl Borderline High TRIG 200-500 mg/dl High TRIG greather than 500 mg/dl Very High Performed By: #### T 4, CMP, TSH, LIPD, CBC #### [facility] [address] [place], [place] [id number] Q - THYROID PEROXIDASE TPO A Bon 01-06-2022 THYROID PEROXIDASE ANTIBODIES <1 Normal <9 [facility] Specialist Comment on above: Order Comment: [facility] performed at: [employer], [employer] [facility], [address] , [address] [place] [address], [address] [place] [address], [employer] Supervisor: Zander Doherty MD [facility] Date/Time: [facility] Results Received Date/Time: [facility] Reported Date/Time: Performed By: #### 3 4F, [id number] #### [facility] [address] [place] [address] Q - URINALYSIS,COMPLETEon Appearance (U) TURBID Abnormal CLEAR [facility] Specialist Comment on above: Order Comment: [facility] performed at: [employer] [facility], [address], [address] [place] [address], [address] [place] [address], [employer] Supervisor: Zander Doherty MD [facility] Date/Time: [facility] Results Received Date/Time: [facility] Reported Date/Time: Performed By: #### 3 4F, [id number] #### [facility] [address] [place] [address] BACTERIA NONE SEEN Normal NONE SEEN [facility] [employer] Comment on above: Order Comment: [facility] performed at: [employer], [employer] [facility], [address], [address] [place] [address], [address] [place] [address], [employer] Supervisor: Zander Doherty MD [facility] Date/Time: [facility] Results Received Date/Time: [facility] Reported Date/Time: Performed By: #### 3 4F, [id number] #### [facility] [address] [place] [address] Bilirubin Ql (U) Negative Normal NEGATIVE [facility] [employer] Comment on above: Order Comment: [facility] performed at: [employer], [employer] [facility], [address] [facility], [address] [place] [address], [address] [place] [address], [employer] Supervisor: Zander Doherty MD [facility] Date/Time: [facility] Results Received Date/Time: [facility] Reported Date/Time: Performed By: #### 3 4F, [id number] #### [facility] [address] [place] [address] CALCIUM OXALATE CRYSTALS MODERATE Abnormal NONE OR FEW [facility] [employer] Comment on above: Order Comment: [facility] performed at: [employer], [employer] [facility], [address] [place] [address], [address] [place] [address], [address] [place] [address], [employer] Supervisor: Zander Doherty MD [facility] Date/Time: [facility] Results Received Date/Time: [facility] Reported Date/Time: Performed By: #### 3 4F, [id number] #### [facility] [address] [place] [address] Color (U) DARK YELLOW Normal YELLOW [facility] [employer] Comment on above: Order Comment: [facility] performed at: [employer], [employer] [facility], [address] [place] [address], [address] [place] [address], [address] [place] [address], [employer] Supervisor: Zander Doherty MD [facility] Date/Time: [facility] Results Received Date/Time: [facility] Reported Date/Time: Performed By: #### 3 4F, [id number] #### [facility] [address] [place] [address] Glucose Ql (U) Negative Normal NEGATIVE [facility] [employer] Comment on above: Order Comment: [facility] performed at: [employer], [employer] [facility], [address] [facility], [address] [place] [address], [address] [place] [address], [employer] Supervisor: Zander Doherty MD [facility] Date/Time: [facility] Results Received Date/Time: [facility] Reported Date/Time: Performed By: #### 3 4F, [id number] #### [facility] [address] [place] [address] HYALINE CAST NONE SEEN Normal NONE SEEN [facility] [employer] Comment on above: Order Comment: [facility] performed at: [employer], [employer] [facility], [address] , [address] [place] [address], [address] [place] [address], [employer] Supervisor: Zander Doherty MD [facility] Date/Time: [facility] Results Received Date/Time: [facility] Reported Date/Time: Performed By: #### 3 4F, [id number] #### [facility] [address] [place] [address] Ketones Ql (U) TRACE Abnormal NEGATIVE [facility] [employer] Comment on above: Order Comment: [facility] performed at: [employer], [employer] [facility], [address] [facility], [address] [place] [address], [address] [place] [address], [employer] Supervisor: Zander Doherty MD [facility] Date/Time: [facility] Results Received Date/Time: [facility] Reported Date/Time: Performed By: #### 3 4F, [id number] #### [facility] [address] [place] [address] Leukocyte esterase Test strip Ql (U) Negative Normal NEGATIVE [facility] [employer] Comment on above: Order Comment: [facility] performed at: [employer], [employer] [facility], [address] , [address] [place] [address], [address] [place] [address], [employer] Supervisor: Zander Doherty MD [facility] Date/Time: [facility] Results Received Date/Time: [facility] Reported Date/Time: Performed By: #### 3 4F, [id number] #### [facility] [address] [place] [address] Nitrite Ql (U) Negative Normal NEGATIVE [facility] [employer] Comment on above: Order Comment: [facility] performed at: [employer], [employer] [facility], [address] , [address] [place] [address], [address] [place] [address], [employer] Supervisor: Zander Doherty MD [facility] Date/Time: [facility] Results Received Date/Time: [facility] Reported Date/Time: Performed By: #### 3 4F, [id number] #### [facility] [address] [place] [address] OCCULT BLOOD Negative Normal NEGATIVE [facility] [employer] Comment on above: Order Comment: [facility] performed at: [employer], [employer] [facility], [address] [facility], [address] [place] [address], [address] [place] [address], [employer] Supervisor: Zander Doehrty MD [facility] Date/Time: [facility] Results Received Date/Time: [facility] Reported Date/Time: Performed By: #### 3 4F, [id number] #### [facility] [address] [place] [address] pH (U) 5.5 [pH] Normal 5.0-8.0 [facility] [employer] Comment on above: Order Comment: [facility] performed at: [employer], [employer] [facility], [address] [facility], [address] [place] [address], [address] [place] [address], [employer] Supervisor: Zander Doherty MD [facility] Date/Time: [facility] Results Received Date/Time: [facility] Reported Date/Time: Performed By: #### 3 4F, [id number] #### [facility] [address] [place] [address] Protein Ql (U) TRACE Abnormal NEGATIVE [facility] [employer] Comment on above: Order Comment: [facility] performed at: [employer], [employer] [facility], [address] [facility], [address] [place] [address], [address] [place] [address], [employer] Supervisor: Zander Doherty MD [facility] Date/Time: [facility] Results Received Date/Time: [facility] Reported Date/Time: Performed By: #### 3 4F, [id number] #### [facility] [address] [place] [address] RBC NONE SEEN Normal < OR = 2 [facility] [employer] Comment on above: Order Comment: [facility] performed at: [employer], [employer] [facility], [address] [place] [address], [address] [place] [address], [address] [place] [address], [employer] Supervisor: Zander Doherty MD [facility] Date/Time: [facility] Results Received Date/Time: [facility] Reported Date/Time: Performed By: #### 3 4F, [id number] #### [facility] [address] [place] [address] Specific gravity (U) [Rel density] 1.034 Normal 1.001-1.035 [facility] [employer] Comment on above: Order Comment: [facility] performed at: [employer] [facility], [address] [place] [address], [address] [place] [address], [address] [place] [address], [employer] Supervisor: Zander Doherty MD [facility] Date/Time: [facility] Results Received Date/Time: [facility] Reported Date/Time: Performed By: #### 3 4F, [id number] #### [facility] [address] [place] [address] SQUAMOUS EPITHELIAL CELLS 0-5 Normal < OR = 5 [facility] [employer] Comment on above: Order Comment: [facility] performed at: [employer] [facility], [address] [place] [address], [address] [place] [address], [address] [place] [address], [employer] Supervisor: Zander Doherty MD [facility] Date/Time: [facility] Results Received Date/Time: [facility] Reported Date/Time: Performed By: #### 3 4F, [id number] #### [facility] [address] [place] [address] WBC NONE SEEN Normal < OR = 5 [facility] [employer] Comment on above: Order Comment: [facility] performed at: [employer], [employer] [facility], [address] [place] [address], [address] [place] [address], [id number], [employer] Supervisor: Zander Doherty MD [facility] Date/Time: [facility] Results Received Date/Time: [facility] Reported Date/Time: Performed By: #### 3 4F, [id number] #### [facility] Default [address] [place] [address] TSHon 01-06-2022 TSH 0.208 uIU/mL Low 0.400-4.500 [facility] [employer] Comment on above: Performed By: #### T 4, CMP, TSH, LIPD, CBC #### [facility] [address] [id number] Total T4on 01-06-2022 T4 [Mass/Vol] 7.9 ug/dL Normal 4.5-11.7 [facility] [employer] Comment on above: Performed By: #### T 4, CMP, TSH, LIPD, CBC #### [facility] [address] [place] [id number] US Thyroidon 01-06-2022 US Thyroid FINDINGS: Right [...] by Dimas Valentino on 01/07/2022 1021 Normal [facility] [employer] Vital Signs Date Time Vital Sign Value Performing Clinician Faci lity 08-02-2024 08:46-0400 Body mass index (BMI) [Ratio] 30.49 kg/m2 Mary Jo NUÑEZ Work Phone: [facility] 08-02-2024 08:46-0400 Body weight 82.46 kg Mary Jo NUÑEZ Work Phone: [facility] 08-02-2024 08:46-0400 Diastolic blood pressure 70 mm[Hg] Mary Jo NUÑEZ Work Phone: [facility] 08-02-2024 08:46-0400 Systolic blood pressure 100 mm[Hg] Mary Jo NUÑEZ Work Phone: [facility] Healthcare Encounters Encounter Date Encounter Type Care Provider Facility Start: 08-02-2024 End: 08-02-2024 Bamboo flowsheet Mary Jo NUÑEZ Work Phone: [facility] Start: 08-02-2024 End: 08-02-2024 Bamboo flowsheet Mary Jo NUÑEZ Work Phone: [facility] Start: 08-02-2024 End: 08-02-2024 ambulatory MARY JO BRINK Not Available Start: 08-02-2024 End: 08-02-2024 Office outpatient visit 15 minutes Mary Jo NUÑEZ Work Phone: [facility] Comment on above: 27 weeks gestation o f ; Second trimester ; size inconsistent with dates Start: 07-12-2024 End: 07-12-2024 ambulatory BRANDON LISBETH Not Available Start: 06-13-2024 End: 06-13-2024 ambulatory BRANDON LISBETH Not Available Start: 05-16-2024 End: 05-16-2024 ambulatory MARY JO KEENA Not Available Start: 04-18-2024 End: 04-18-2024 ambulatory BRANDON LISBETH Not Available Start: 03-18-2024 End: 03-18-2024 ambulatory BRANDON LEE Not Available Start: 11-07-2022 End: 11-07-[address] CONCEPCIÓN PETERSON Facility:[facility] Start: 10-07-2022 End: 10-10-2022 ambulatory ISAIAH BANERJEE [facility] Start: 08-22-2022 ambulatory RENETTA COLLAZO [facility] Start: 08-20-2022 End: 08-21-2022 ambulatory BILL WORRELL [facility] Start: 03-15-2022 End: 03-15-[address] SARITHA WILEY Facility:[facility] Procedures Date Procedure Procedure Detail Performing Clinician Start: 08-02-2024 Urnls dip stick/tabl et rgnt non-auto w/o micrscp Mary Jo NUÑEZ Work Phone: Plan of Treatment Date Care Activity Detail Author Start: 08-18-2024 End: 08-18-2024 Patient encounter procedure 08/18/2024 8:30 AM EDT Routine [facility] [address] [place] [id number] Brandon Lee, DO [address] [place], [place] [id number] [facility] Start: 08-18-2024 End: 08-18-2024 Professional / ancillary services management 08/18/2024 8:00 AM EDT Ancillary Procedure [facility] [address] [place] [address] [facility] Start: 08-02-2024 End: 08-02-2025 US for US OB SCAN FOR GROWTH Imaging Routine size inconsistent with dates Expected: 08/02/2024 (Approximate), Expires: 08/02/2025 [facility] Work Phone: Comment on above: Expected: 08/02/2024 (Approximate), Expires: 08/02/2025 Start: 06-26-2024 Influenza vaccination Influenza Vacc ine (#1) [facility] Immunizations Immunization Date Immunization Notes Care Provider Jerry maradiaga 09-21-2017 influenza virus vacc ine, unspecified formulation Mary Jo NUÑEZ Work Phone: [facility] Payers Date Payer Category Payer Medicaid [employer] [place] [employer] [place] [place] [id number] 2024-Present [address] [address] [place] [address] [id number] [employer] [id number] 2024-Present [phone] [address] [place] [address] [id number] 2024 Unknown [id number] 1995 Unknown [id number] 1996 Unknown [id number] 1996 Unknown [id number] 1996 Unknown [id number] 1996 Unknown [id number] 1996 Unknown [id number] 1996 Unknown [id number] 1996 Unknown [id number] 1958 Medicaid [id number] 1958 Unknown [id number] Social History Date Type Detail Facility Start: 05-16-2024 Tobacco smoking stat us NHIS Never smoked tobacco [facility] Start: 05-16-2024 Tobacco use and exposure Smoke less tobacco non-user [facility] Start: 07-12-2024 End: 08-02-2024 Alcoholic beverage intake Ex-drinker (finding) [facility] Start: 05-16-2024 History of Social function [facility] Start: 05-16-2024 Tobacco use panel [facility] Start: 02-04-2024 [facility] Start: 1995 Sex assigned at Female [facility] History of Present illness Narrative 08-02-2024 JOAQUIN Barrera - 08/02/2024 8:30 AM EDT Note Date & Type Note Facility 08-02-2024 History of Presen t illness Narrative Reason for Appointment: Patient ID: Chani Stone is a 29 y.o. female who presents for Routine Visit Patient presents today for Return OB appointment. MEDICATIONS Current Outpatient Medications Medication Instructions albuterol HFA 90 mcg/act inhaler 2 puffs, Inhalation, Every 6 hours PRN Gofbnbzl-Dse-Hn-FA ( 1 + IRON PO) ALLERGIES No Known Allergies PROBLEMS Active Ambulatory Problems Diagnosis Date Noted No Active Ambulatory Problems Resolved Ambulatory Problems Diagnosis Date Noted No Resolved Ambulatory Problems Past Medical History: Diagnosis Date Miscarriage 04/09/2022 HISTORY PAST MEDICAL HISTORY SOCIAL HISTORY Past Medical History: Diagnosis Date Miscarriage 04/09/2022 Social History Tobacco Use Smoking status: Never Smokeless tobacco: Never Substance Use Topics Alcohol use: Not Currently Drug use: Never FAMILY HISTORY No family history on file. SURGICAL HISTORY Past Surgical History: Procedure Laterality Date SECTION, LOW TRANSVERSE REVIEW OF SYSTEMS Review of Systems: Review of Systems Constitutional: Negative. HENT: Negative. Eyes: Negative. Respiratory: Negative. Cardiovascular: Negative. Gastrointestinal: Negative. Genitourinary: Negative. Musculoskeletal: Negative. Skin: Negative. Neurological: Negative. All other systems reviewed and are negative. Hematological: Negative. Endocrine: Negative. Allergic/Immunologic: Negative. OBJECTIVE Objective: Physical Exam Constitutional: Appearance: Normal appearance. She is well-developed. Cardiovascular: Rate and Rhythm: Normal rate and regular rhythm. Pulmonary: Effort: Pulmonary effort is normal. Breath sounds: Normal breath sounds. Abdominal: General: Bowel sounds are normal. There is no distension. Palpations: Abdomen is soft. Tenderness: There is no abdominal tenderness. There is no guarding or rebound. Musculoskeletal: General: No swelling. Normal range of motion. Right lower leg: No edema. Left lower leg: No edema. Neurological: Mental Status: She is alert and oriented to person, place, and time. Skin: General: Skin is warm and dry. Psychiatric: Mood and Affect: Mood normal. Behavior: Behavior normal. Vitals and nursing note reviewed. Exam conducted with a char dust cleaner and salvager present. Vitals: Estimated body mass index is 30.49 kg/m as calculated from the following: Height as of 11/07/22: 5' 4.75 . Weight as of this encounter: 181 lb 12.8 oz. BP: 100/70 Patient's last menstrual period was 01/21/2024. ASSESSMENT & PLAN ICD-10-CM 1. 27 weeks gestation of Z3A.27 POCT urinalysis dipstick manually resulted 2. Second trimester Z34.92 POCT urinalysis dipstick manually resulted 3. size inconsistent with dates O26.849 US OB SCAN FOR GROWTH Return OB: Patient presents today for a routine obstetrics appointment. Patient is currently 27w5d . Patient states she is doing well but has complaints of being tired due to current . Patient has verbalizes frequent movement. Orders Placed This Encounter Procedures US OB SCAN FOR GROWTH POCT urinalysis dipstick manually resulted Follow Up: Patient is to return to office in 2 week for routine OB appointment. 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 Patient History Past [...] PT/chiropractic therapy Start Neurontin F/U 3 months [facility] Progress note 08-22-2022 Note Date & Type [...] office. 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 Patient History No [...] be an additional personal documentation from me. [facility] Clinical Note 05-16-2022 Note Date & Type Note Facility 05-16-2022 Note HISTORY: Left sided pain and tingling PROCEDURE: [employer] HDXT 1.5. Sagittal T1, T2, STIR [...] signed by Dimas Valentino on 05/19/2022 [address] [facility] [employer] Evaluation note Note Date & Type Note Facility Evaluation note Diagnosis 27 weeks gestation of Second trimester state, incidental size inconsistent with dates documented in this encounter [facility] Summary Purpose Family History No Family History Records FoundNo Family History Records FoundNo Family History Records FoundNo Family History Records Found Advance Directives No Advanced Directives Records FoundNo Advanced Directives Records FoundNo Advanced Directives Records FoundNo Advanced Directives Records Found Additional Source Comments INFORMATION SOURCE (unrecogn ized section and content) DATE CREATED AUTHOR 05/19/2022 [facility] dical Specialist DATE CREATED AUTHOR AUTHOR'S ORGANIZ ATION 11/18/[address] [facility] pital DATE CREATED AUTHOR AUTHOR'S ORGANIZ ATION 02/07/2023 [facility] DATE CREATED AUTHOR AUTHOR'S ORGANIZ ATION 08/03/2024 [facility] dical Specialists EPIC Care Teams (unrecognized sec tion and content) Quad Stayer Relationship Specialty Start Date End Date Saritha Wiley MD [address] [place] [address] PCP - General Family Medicine 03/03/23 Joi Bravo MD PCP - [facility] 04/25/24 [employer] Relationship Specialty Start Date End Date Saritha Wiley MD [address] [place] [address] PCP - General Family Medicine 03/03/23 Joi Bravo MD PCP - [facility] 04/25/24 Reason for Visit (unrecogniz ed section and content) Reason Comments Routine Visit FOR RECORDS PERTAINING TO PATIENTS WHO ARE [...] BE BASED ON THE PRIMARY CLINICAL RECORDS. [facility] [employer] [facility]. provides no warranty or guarantee of the accuracy or completeness of information in this document.
== END 2024-08-18 08:06 | disposition home or self-care (01) ==
LOC: NOMS 08:06
PROVIDERS: PCP Family Medicine; Visit Provider Physician Assistant
DX: O26.843 Uterine size-date discrepancy, third trimester (principal); Z3A.30 30 weeks gestation of pregnancy
CPT/HCPCS: 76816

== ENCOUNTER 2024-09-29 08:02 | Outpatient (OUT) | payer BC, MEDICAID, SELFPAY ==
--- NOTE | 2024-09-29 | US_ITS ---
[address] [address] Patient Name: FLAKITO TRIVEDI MRN: [id number] date: 1995 Sex: F Assigned Patient Location: [facility] Current Patient Location: [facility] Accession/Order Number: [id number] Exam Date: 09/29/2024 08:06 Report Date: 09/29/2024 08:41 At the request of: GIOVANY BRINK Procedure: US OB growth EXAMINATION: US OB growth HISTORY: LARGE FOR GESTATIONAL AGE COMPARISON: No relevant comparison available. FINDINGS: Heart Rate: 140 bpm Amniotic Fluid Volume: 10.6 cm, largest fluid pocket 3.9 cm Number: 1 Position: Breech presentation, longitudinal lie BIOMETRY: BPD: 8.64 cm; 34 weeks 6 days; 25.90 % HC: 32 cm; 36 weeks 0 days; 21.40 % AC: 31.16 cm; 35 weeks 1 day; 33.60 % FL: 6.98 cm; 35 weeks 6 days; 40.10 % EFW: 2547.05 g; 33.30 %, 5 lbs. 14 oz. FL/AC: 22.40 FL/BPD: 80.79 HC/AC: 1.03 GESTATIONAL AGE: Age by EDC: 36 weeks 0 days SINGH by EDC: 2024-10-27 Age by US: 35 weeks 3 days SINGH by US: 2024-10-31 US/US OB growth IMPRESSION: Normal interval growth Electronically authenticated by: OCTAVIO LUCIANO Date: 09/29/2024 08:41
--- OUTSIDE RECORDS SUMMARY | 2024-09-29 08:15 | XMS_ITS | CCD ---
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 Name Role Phone DR SARITHA WILEY Primary Care Unavailable NATALIIA INIGUEZ Admitting Unavailable NATALIIA INIGUEZ Consulting Unavailable NATALIIA INIGUEZ Attending Unavailable KRISTEN, DR BEEBE Attending Unavailable DR SARITHA WILEY Primary Care Unavailable KRISTEN, DR BEEBE Admitting Unavailable KRISTEN, DR BEEBE Consulting Unavailable GAYATRI WORRELLIL Referring Unavailable RENETTA COLLAZO Attending Unavailable BILL WORRELL Attending Unavailable ISAIAH BANERJEE Attending Unavailable Saritha Wiley MD Primary Care Provider Joi Bravo MD Unavailable Saritha Wiley MD Primary Care Provider BRANDON LEE Attending Unavailable MARY JO BRINK Attending Unavailable BRANDON LEE Attending Unavailable BRANDON LEE Attending Unavailable MARY JO BRINK Attending Unavailable BRANDON LEE Attending Unavailable MARY JO BRINK Attending Unavailable MARY JO BRINK Attending Unavailable Medications Current Medications Medication Drug Class(es) Dates Sig (Normalized) Sig (Original) [id number] 200 actuat albuterol 0.09 mg/actuat metered dose inhaler (12 sources) beta2-Adrenergic Agonist take 2 puff(s) by inhalation every six hours albuterol HFA 90 mcg/act inhaler Inhale 2 puffs every 6 (six) hours if needed Active Bstjiztx-Ell-Hz-FA ( 1 + IRON PO) (12 sources) Bdshnbtw-Fkt-Ky-FA ( 1 + IRON PO) Active Problems Active Problems Problem Classification Problem Date Documented Date Episodic/Chronic Immunizations and screening for infectious disease (1 source) Encounter for screening for human papillomavirus (HPV); Translations: [ENC SCREENING HUMAN PAPILLOMAVIRUS] Onset: 11-13-2022 Episodic Other complications of (2 sources) size does not accord with dates; Translations: [Uterine size-date discrepancy, unspecified trimester] 08-02-2024 Episodic Other complications of (2 sources) Excessive growth affecting management of mother; Translations: [Maternal care for excessive growth, third trimester, not applicable or unspecified] 09-15-2024 Episodic Other and delivery including normal (16 sources) Second trimester ; Translations: [Encounter for supervision of normal , unspecified, second trimester] Onset: 08-18-2024 08-02-2024 Episodic Other screening for suspected conditions (not mental disorders or infectious disease) (4 sources) Encounter for screening for malignant neoplasm of cervix; Translations: [ENC SCREENING MALIG NEOPLASM CERV] Onset: 11-07-2022 Episodic Residual codes; unclassified (2 sources) Gestation period, 27 weeks; Translations: [27 weeks gestation of ] 08-02-2024 Episodic Residual codes; unclassified (10 sources) Gestation period, 30 weeks; Translations: [30 weeks gestation of ] Onset: 08-18-2024 08-18-2024 Episodic Residual codes; unclassified (2 sources) Gestation period, 32 weeks; Translations: [32 weeks gestation of ] 09-01-2024 Episodic Residual codes; unclassified (2 sources) Gestation period, 34 weeks; Translations: [34 weeks gestation of ] 09-15-2024 Episodic Unclassified (1 source) Low back pain, [...] Range Facility Urinalysis macro (dipstick) panel (U)on 09-15-2024 Bilirubin, UA Negative Negative - 4(70) +++ mg/dL [facility] Blood, UA Negative Negative - 50 Karl/mcL [facility] Clarity, UA Clear [facility] Color, UA Yellow [facility] Glucose, UA Negative Negative - 1999(110) ++++ mg/dL [facility] Interpretation and review of laboratory results Normal [facility] Ketones, UA Negative Negative - 160(16) ++++ mg/dL [facility] Leukocytes, UA Negative Negative - 500+++ Serene/mcL [facility] Nitrite, UA Negative Negative - Positive [facility] pH, UA 6.5 5 - 9 [facility] Protein, UA Negative Negative - 1999(20) ++++ mg/dL [facility] Spec Grav, UA 1.025 1 - 1.03 [facility] Urobilinogen, UA 0.2 0.2 - 12 mg/dL [facility] Urinalysis macro (dipstick) panel (U)on 09-01-2024 Bilirubin, UA Negative Negative - 4(70) +++ mg/dL [facility] Blood, UA Negative Negative - 50 Karl/mcL [facility] Clarity, UA Clear [facility] Color, UA Yellow [facility] Glucose, UA Negative Negative - 1999(110) ++++ mg/dL [facility] Interpretation and review of laboratory results Normal [facility] Ketones, UA Negative Negative - 160(16) ++++ mg/dL [facility] Leukocytes, UA Negative Negative - 500+++ Serene/mcL [facility] Nitrite, UA Negative Negative - Positive [facility] pH, UA 6.5 5 - 9 [facility] Protein, UA Negative Negative - 1999(20) ++++ mg/dL [facility] Spec Grav, UA 1.01 1 - 1.03 [facility] Urobilinogen, UA 0.2 0.2 - 12 mg/dL [facility] Urinalysis macro (dipstick) panel (U)on 08-18-2024 Bilirubin, UA Negative Negative - 4(70) +++ mg/dL [facility] Blood, UA Negative Negative - 50 Karl/mcL [facility] Clarity, UA Clear [facility] Color, UA Yellow [facility] Glucose, UA Negative Negative - 1999(110) ++++ mg/dL [facility] Interpretation and review of laboratory results Normal [facility] Ketones, UA Negative Negative - 160(16) ++++ mg/dL [facility] Leukocytes, UA Negative Negative - 500+++ Serene/mcL [facility] Nitrite, UA Negative Negative - Positive [facility] pH, UA 5.5 5 - 9 [facility] Protein, UA Negative Negative - 1999(20) ++++ mg/dL [facility] Spec Grav, UA 1.025 1 - 1.03 [facility] Urobilinogen, UA 1.0 0.2 - 12 mg/dL [facility] Urinalysis macro (dipstick) panel (U)on 08-02-2024 Bilirubin, UA Negative Negative - 4(70) +++ mg/dL [facility] Blood, UA Negative Negative - 50 Karl/mcL [facility] Clarity, UA Clear [facility] Color, UA Yellow [facility] Glucose, UA Negative Negative - 1999(110) ++++ mg/dL [facility] Interpretation and review of laboratory results Normal [facility] Ketones, UA Negative Negative - 160(16) ++++ mg/dL [facility] Leukocytes, UA Negative Negative - 500+++ Serene/mcL [facility] Nitrite, UA Negative Negative - Positive [facility] pH, UA 6.5 5 - 9 [facility] Protein, UA Negative Negative - 1999(20) ++++ mg/dL [facility] Spec Grav, UA 1.025 1 - 1.03 [facility] Urobilinogen, UA 0.2 0.2 - 12 mg/dL [facility] Refillon 12-02-2022 Refill [id number] Joan Stone 1995 F Date Provider Department Center 12/02/2022 ISAIAH SALAZAR MP [facility] Family History Family Status - Relation Status Age at Mother Alive Father Alive Reason for Visit and Comments: Med Refill [[id number]] Normal [facility] PAP ACOG PANEL 2: 21 to 29on 11-12-2022 . . Normal [facility] Comment on above: Performed By: #### [id number] #### [facility] [address] [place] [address] Dr. Asher Renee Age Gdln ACOG Testing 21-29 [facility] Comment on above: Performed By: #### [id number] #### [facility] [address] [place] [address] Dr. Asher Renee DIAGNOSIS: Comment [facility] Comment on above: Result Comment: NEGA TIVE FOR INTRAEPITHELIAL LESION OR MALIGNANCY. Performed By: #### 4 [id number] #### [facility] [address] [place] [address] Dr. Asher Renee Methodology: Comment [facility] Comment on above: Result Comment: This liquid based ThinPrep(R) pap test was screened with the use of an image guided system. Performed By: #### 4 [id number] #### [facility] [address] [place] [address] Dr. Asher Renee Note: Comment [facility] Comment on above: Result Comment: The Pap smear is a screening test designed to aid in the detection of premalignant and malignant conditions of the uterine cervix. It is not a diagnostic procedure and should not be used as the sole means of detecting cervical cancer. Both false-positive and false-negative reports do occur. . Performed By: #### 4 [id number] #### [facility] [address] [place] [address] Dr. Asher Renee Performed by: Comment Normal [facility] Comment on above: Result Comment: Josephine Santiago Layout Designer (ASCP) Performed By: #### [id number] #### [facility] [address] [place] [address] Dr. Asher Renee Reflex Criteria: Comment [facility] Comment on above: Result Comment: The HPV DNA reflex criteria were not met with this specimen result therefore, no HPV testing was performed. . Performed By: #### 4 [id number] #### [facility] [address] [place] [address] Dr. Asher Renee Specimen adequacy: Comment Normal [facility] Comment on above: Result Comment: Sati sfactory for evaluation. No endocervical component is identified. Performed By: #### 4 [id number] #### [facility] [address] [address] [address] Asher Renee 36on 10-28-2022 37 Approving, but needs appt for additional refills. Normal [facility] Follow-Upon 10-07-2022 Follow-Up [id number] ScaryenikeyonaJoan 1995 F [facility] 10/07/2022 Nevaeh-ISAIAH BANERJEE MP [facility] Family History Family Status - Relation Status Age at Mother Alive Father Alive Level of Service:04203 [place] OFFICE/OUTPATIENT ESTABLISHED LOW MDM 20-29 MIN Reason for Visit and Comments: Follow-up [[id number]] - Pt here for low back pain Normal [facility] 36on 09-22-2022 37 Approving, but needs appt for additional refills. Normal [facility] Procedure Visiton 08-22-2022 Procedure Visit [id number] Joan Stone 1995 F [facility] [place] 08/22/2022 RENETTA CHÁVEZ MP [facility] Family History Family Status - Relation Status Age at Mother Alive Father Alive Level of Service:71182 [place] OFFICE/OUTPATIENT NEW LOW MDM 30-44 MINUTES (25) Reason for Visit and Comments: Pain [136] - Left SI joint CSI USG Normal [facility] Office Visiton 08-20-2022 Follow-up visit [id number] ScaryenikeyonaJoan 1995 F [facility] [place] 08/20/2022 260-BILL WORRELL MP [facility] Chart Close Cosign Required by: Bill Worrell MD[[id number]] No family history on file Level of Service:57194 [place] OFFICE/OUTPATIENT NEW LOW MDM 30-44 MINUTES (GC) Normal [facility] US OB 1ST Trimesteron 2021 US OB 1ST Trimester CLINICAL HISTORY: Pelvic pain. [...] by Ruy Luo on 03/17/2022 1627 Normal [facility] CBC AUTO DIFFon 03-15-2022 BASO # 0.0 103/ul Normal 0.0-0.1 [facility] Comment on above: Performed By: #### C BC #### [facility] [address] [place] [address] Dr. Asher Renee Basophils/100 WBC (Bld) 0.5 % Normal 0.2-2.0 [facility] Comment on above: Performed By: #### C BC #### [facility] [address] [address] [address] Asher Renee EO # 0.1 103/ul Normal 0.0-0.7 The [facility] Comment on above: Performed By: #### C BC #### [facility] [address] [place] [address] Dr. Asher Renee Eosinophils/100 WBC (Bld) 1.1 % Normal 0.9-7.0 The [facility] Comment on above: Performed By: #### C BC #### [facility] [address] [address] [address] Asher Renee Erythrocyte distribution width (RBC) [Ratio] 12.5 % Normal 11.0-15.0 The [facility] Comment on above: Performed By: #### C BC #### [facility] [address] [place] [address] Dr. Asher Renee Hematocrit (Bld) [Volume fraction] 38.8 % Normal 36.0-48.0 The [facility] Comment on above: Performed By: #### C BC #### [facility] [address] [place] [address] Dr. Asher Renee Hemoglobin (Bld) [Mass/Vol] 12.8 g/dL Normal 12.0-16.0 [facility] Comment on above: Performed By: #### C BC #### [facility] [address] [place] [address] Dr. Asher Renee IG # 0.02 10e3/ul Normal 0.00-0.03 [facility] Comment on above: Performed By: #### C BC #### [facility] [address] [place] [address] Dr. Asher Renee IG % 0.3 % Normal 0.0-0.5 [facility] Comment on above: Performed By: #### C BC #### [facility] [address] [place] [address] Dr. Asher Renee LYMPH # 1.7 103/ul Normal 1.2-3.8 The [facility] Comment on above: Performed By: #### C BC #### [facility] [address] [place] [address] Dr. Asher Renee Lymphocytes/100 WBC (Bld) 26.2 % Normal 20.5-60.0 [facility] Comment on above: Performed By: #### C BC #### [facility] [address] [place] [address] Dr. Asher Renee MANUAL DIFF REQ NO Normal [facility] Comment on above: Performed By: #### C BC #### [facility] [address] [place] [address] Dr. Asher Renee MCH (RBC) [Entitic mass] 30.5 pg Normal 26.7-34.0 The [facility] Comment on above: Performed By: #### C BC #### [facility] [address] [place] [address] Dr. Asher Renee MCHC (RBC) [Mass/Vol] 33.0 g/dL Normal 29.9-35.2 The [facility] Comment on above: Performed By: #### C BC #### [facility] [address] [id number] Asher Renee MCV (RBC) [Entitic vol] 92.4 fL Normal 81.0-99.0 The [facility] Comment on above: Performed By: #### C BC #### [facility] [address] [place] [address] Dr. Asher Renee MONO # 0.5 103/ul Normal 0.3-0.8 The [facility] Comment on above: Performed By: #### C BC #### [facility] [address] [place] [address] Dr. Asher Renee Monocytes/100 WBC (Bld) 7.4 % Normal 1.7-12.0 The [facility] Comment on above: Performed By: #### C BC #### [facility] [address] [place] [address] Dr. Asher Renee NEUT # 4.2 103/ul Normal 1.4-6.5 The [facility] Comment on above: Performed By: #### C BC #### [facility] [address] [place] [address] Dr. Asher Renee Neutrophils/100 WBC (Bld) 64.5 % Normal 43.0-75.0 The [facility] Comment on above: Performed By: #### C BC #### [facility] [address] [place] [address] Dr. Asher Renee Platelet mean volume (Bld) [Entitic vol] 10.8 fL Normal 9.5-13.5 The [facility] Comment on above: Performed By: #### C BC #### [facility] [address] [place] [address] Dr. Asher Renee PLT 213 103/ul Normal 150-450 The [facility] Comment on above: Performed By: #### C BC #### [facility] [address] [place] [address] Dr. Asher Renee RBC 4.20 106/ul Normal 4.20-5.40 The [facility] Comment on above: Performed By: #### C BC #### [facility] [address] [place] [address] Dr. Asher Renee WBC 6.5 103/ul Normal 4.0-11.0 [facility] Comment on above: Performed By: #### C BC #### [facility] [address] [place] [address] Dr. Asher Renee PREG QUANT HCGon 03-15-2022 HCG QUANT 58 mIU/mL Normal [facility] Comment on above: Performed By: #### P REGQNT #### [facility] [address] [place] [address] Dr. Asher Renee HCG RANGE SEE BELOW Normal [facility] Comment on above: Result Comment: 5-50 0-1 WEEK 40-300 1-2 WEEKS 100-1,000 2-3 WEEKS 500-6,000 3-4 WEEKS 5,000-200,000 1-2 MONTHS 10,000-100,000 2-3 MONTHS 3,000-50,000 2ND TRIMESTER 1,000-50,000 3RD TRIMESTER Performed By: #### P REGQNT #### [facility] [address] [place] [address] Dr. Asher Renee PROF CHEM 8 (BAS METB)on Anion gap [Moles/Vol] 11.9 mmol/L Normal [facility] Comment on above: Performed By: #### B MP #### [facility] [address] [place] [address] Dr. Asher Renee Calcium [Mass/Vol] 9.0 mg/dL Normal 8.5-10.1 [facility] Comment on above: Performed By: #### B MP #### [facility] [address] [place] [address] Dr. Asher Renee Chloride [Moles/Vol] 105 mmol/L Normal 98-107 [facility] Comment on above: Performed By: #### B MP #### [facility] [address] [place] [address] Dr. Asher Renee CO2 [Moles/Vol] 27.7 mmol/L Normal 21.0-32.0 [facility] Comment on above: Performed By: #### B MP #### [facility] [address] [place] [address] Dr. Asher Renee Creatinine [Mass/Vol] 0.55 mg/dL Normal 0.55-1.02 [facility] Comment on above: Performed By: #### B MP #### [facility] [address] [place] [address] Dr. Asher Renee EGFR-AF INDIAN >60 Normal >=60 [facility] Comment on above: Performed By: #### B MP #### [facility] [address] [address] [address] Asher Renee EGFR-NON AF INDIAN >60 Normal >=60 [facility] Comment on above: Performed By: #### B MP #### [facility] [address] [place] [address] Dr. Asher Renee Glucose [Mass/Vol] 95 mg/dL Normal 74-106 [facility] Comment on above: Performed By: #### B MP #### [facility] [address] [place] [address] Dr. Asher Renee Potassium [Moles/Vol] 3.6 mmol/L Normal 3.5-5.1 [facility] Comment on above: Performed By: #### B MP #### [facility] [address] [place] [address] Dr. Asher Renee Sodium [Moles/Vol] 141 mmol/L Normal 136-145 [facility] Comment on above: Performed By: #### B MP #### [facility] [address] [place] [address] Dr. Asher Renee Urea nitrogen [Mass/Vol] 10.0 mg/dL Normal 7.0-18.0 [facility] Comment on above: Performed By: #### B MP #### [facility] [address] [place] [address] Dr. Asher Renee Urea nitrogen/Creatinine [Mass ratio] 18.2 mg/mg Normal [facility] Comment on above: Performed By: #### B MP #### [facility] [address] [place] [address] Dr. Asher Renee US RUQon 02-24-2022 US [...] by Dimas Valentino on 02/24/2022 1035 Normal [facility] XR Spine Lumbar Complete w/F jey AND [place] 02-14-2022 XR Spine Lumbar Complete w/Flex AND [...] by Dimas Valentino on 02/14/2022 1555 Normal [facility] Complete Blood Counton 01-06 Erythrocyte distribution width (RBC) [Ratio] 12.4 % Normal 11.0-15.0 [facility] Comment on above: Performed By: #### T 4, CMP, TSH, LIPD, CBC #### [facility] [address], [place] [id number] Hematocrit (Bld) [Volume fraction] 45.5 % Normal 35.0-47.0 [facility] Comment on above: Performed By: #### T 4, CMP, TSH, LIPD, CBC #### [facility] [address], [place] [id number] Hemoglobin (Bld) [Mass/Vol] 15.1 g/dL Normal 11.6-15.5 [facility] Comment on above: Performed By: #### T 4, CMP, TSH, LIPD, CBC #### [facility] [address], [place] [id number] MCH (RBC) [Entitic mass] 30.3 pg Normal 27.0-33.0 [facility] Comment on above: Performed By: #### T 4, CMP, TSH, LIPD, CBC #### [facility] [address], [place] [id number] MCHC (RBC) [Mass/Vol] 33.2 g/dL Normal 32.0-36.0 [facility] Comment on above: Performed By: #### T 4, CMP, TSH, LIPD, CBC #### [facility] [address], [place] [id number] MCV (RBC) [Entitic vol] 91 fL Normal 80-100 [facility] Comment on above: Performed By: #### T 4, CMP, TSH, LIPD, CBC #### [facility] [address], [place] [id number] Platelet mean volume (Bld) [Entitic vol] 11.30 fL Normal 7.50-12.50 [facility] Comment on above: Performed By: #### T 4, CMP, TSH, LIPD, CBC #### [facility] [address], [place] [id number] Platelets (Bld) [#/Vol] 283 10*3/uL Normal 140-400 [facility] Comment on above: Performed By: #### T 4, CMP, TSH, LIPD, CBC #### [facility] [address], [place] [id number] RBC (Bld) [#/Vol] 4.99 10*6/uL Normal 3.90-5.20 [facility] Comment on above: Performed By: #### T 4, CMP, TSH, LIPD, CBC #### [facility] [address], [place] [id number] RDW-SD 41.5 fL Normal 37.0-50.0 [facility] Comment on above: Performed By: #### T 4, CMP, TSH, LIPD, CBC #### [facility] [address], [place] [id number] WBC (Bld) [#/Vol] 6.1 10*3/uL Normal 3.8-11.0 [facility] Comment on above: Performed By: #### T 4, CMP, TSH, LIPD, CBC #### [facility] [address], [place] [id number] Comprehensive Metabolic Pane kamran 01-06-2022 Albumin [Mass/Vol] 5.3 g/dL High 3.6-5.1 [facility] Comment on above: Performed By: #### T 4, CMP, TSH, LIPD, CBC #### [facility] [address], [place] [id number] Albumin/Globulin [Mass ratio] 2.1 {ratio} Normal 1.0-2.5 [facility] Comment on above: Performed By: #### T 4, CMP, TSH, LIPD, CBC #### [facility] [address], [place] [id number] ALP [Catalytic activity/Vol] 36 U/L Normal 35-119 [facility] Comment on above: Performed By: #### T 4, CMP, TSH, LIPD, CBC #### [facility] [address], [place] [id number] ALT [Catalytic activity/Vol] 12 U/L Normal 6-33 [facility] Comment on above: Result Comment: 09/25 Female reference range changed. Performed By: #### T 4, CMP, TSH, LIPD, CBC #### [facility] [address], [place] [id number] Anion gap [Moles/Vol] 19 mmol/L Normal 12-20 [facility] Comment on above: Result Comment: Effe ctive 10/31/2019 reference range changed. Performed By: #### T 4, CMP, TSH, LIPD, CBC #### [facility] [address], [place] [id number] AST [Catalytic activity/Vol] 14 U/L Normal 9-34 [facility] Comment on above: Performed By: #### T 4, CMP, TSH, LIPD, CBC #### [facility] [address], [place] [id number] Bilirubin [Mass/Vol] 1.22 mg/dL High 0.30-1.20 [facility] Comment on above: Performed By: #### T 4, CMP, TSH, LIPD, CBC #### [facility] [address], [place] [id number] BUN/CREA 18 Ratio Normal 6-22 [facility] Comment on above: Performed By: #### T 4, CMP, TSH, LIPD, CBC #### [facility] [address], [place] [id number] Calcium [Mass/Vol] 9.9 mg/dL Normal 8.6-10.2 [facility] Comment on above: Performed By: #### T 4, CMP, TSH, LIPD, CBC #### [facility] [address], [place] [id number] Chloride [Moles/Vol] 104 mmol/L Normal 98-107 [facility] Comment on above: Performed By: #### T 4, CMP, TSH, LIPD, CBC #### [facility] [address], [place] [id number] CO2 [Moles/Vol] 23 mmol/L Normal 20-31 [facility] Comment on above: Performed By: #### T 4, CMP, TSH, LIPD, CBC #### [facility] [address], [place] [id number] Creatinine [Mass/Vol] 0.6 mg/dL Normal 0.6-1.4 [facility] Comment on above: Performed By: #### T 4, CMP, TSH, LIPD, CBC #### [facility] [address], [place] [id number] eGFRAA 163 mL/min/1.73m2 Normal >60 [facility] Comment on above: Performed By: #### T 4, CMP, TSH, LIPD, CBC #### [facility] [address], [place] [id number] eGFRNAA 135 mL/min/1.73m2 Normal >60 [facility] Comment on above: Performed By: #### T 4, CMP, TSH, LIPD, CBC #### [facility] [address], [place] [id number] Globulin (S) [Mass/Vol] 2.5 g/dL Normal 1.9-3.7 [facility] Comment on above: Performed By: #### T 4, CMP, TSH, LIPD, CBC #### [facility] [address], [place] [id number] Glucose [Mass/Vol] 89 mg/dL Normal 65-99 [facility] Risk Consultant Comment on above: Result Comment: For FASTING Glucose --- ADA reference ranges: Normal 65-99 mg/dl Prediabetes 100-125 Diabetes >/= 126 Performed By: #### T 4, CMP, TSH, LIPD, CBC #### [facility] [address], [place] [id number] Potassium [Moles/Vol] 4.0 mmol/L Normal 3.5-5.5 [facility] Risk Consultant Comment on above: Performed By: #### T 4, CMP, TSH, LIPD, CBC #### [facility] [address], [place] [id number] Protein [Mass/Vol] 7.8 g/dL Normal 6.1-8.1 [facility] Risk Consultant Comment on above: Performed By: #### T 4, CMP, TSH, LIPD, CBC #### [facility] [address], [place] [id number] Sodium [Moles/Vol] 142 mmol/L Normal 135-146 [facility] Risk Consultant Comment on above: Performed By: #### T 4, CMP, TSH, LIPD, CBC #### [facility] [address], [place] [id number] Urea nitrogen [Mass/Vol] 10 mg/dL Normal 7-25 [facility] Risk Consultant Comment on above: Performed By: #### T 4, CMP, TSH, LIPD, CBC #### [facility] [address], [place] [id number] Lipid Panelon 01-06-2022 Cholesterol [Mass/Vol] 175 mg/dL Normal 125-200 [facility] Risk Consultant Comment on above: Result Comment: Low risk < 200mg/dL Borderline risk 201-239 mg/dl High risk > or equal to 240 Performed By: #### T 4, CMP, TSH, LIPD, CBC #### [facility] [address], [place] [id number] Cholesterol in HDL [Mass/Vol] 90 mg/dL Normal >40 [facility] Risk Consultant Comment on above: Result Comment: High Cardiovascular Risk HDL <40 mg/dL Low Cardiovascular Risk HDL > or equal to 60 mg/dl Performed By: #### T 4, CMP, TSH, LIPD, CBC #### [facility] [address] [place] [id number] Cholesterol in LDL [Mass/Vol] 75 mg/dL Normal [facility] Specialist Comment on above: Result Comment: LDL ATP III CLASSIFICATION LDL less than 100 mg/dl Optimal LDL 100-129 mg/dl Near or above optimal LDL 130-159 Borderline high LDL 160-189 High LDL greater than 189 mg/dl Very High Performed By: #### T 4, CMP, TSH, LIPD, CBC #### [facility] [address] [place], [place] [id number] Cholesterol in VLDL [Mass/Vol] 10 mg/dL Normal [facility] Risk Consultant Comment on above: Performed By: #### T 4, CMP, TSH, LIPD, CBC #### [facility] [address] [place], [place] [id number] Cholesterol.total/C holesterol in HDL [Mass ratio] 2 {ratio} Normal [facility] Specialist Comment on above: Performed By: #### T 4, CMP, TSH, LIPD, CBC #### [facility] [address] [id number] Triglyceride [Mass/Vol] 51 mg/dL Normal 30-150 [facility] Risk Consultant Comment on above: Result Comment: TRIG ATPIII CLASSIFICATIONS TRIG less than 150 mg/dl Normal TRIG 150-199 mg/dl Borderline High TRIG 200-500 mg/dl High TRIG greather than 500 mg/dl Very High Performed By: #### T 4, CMP, TSH, LIPD, CBC #### [facility] [address], [place] [id number] Q - THYROID PEROXIDASE TPO A Bon 01-06-2022 THYROID PEROXIDASE ANTIBODIES <1 Normal <9 [facility] Risk Consultant Comment on above: Order Comment: [facility] performed at: [email or web address], [address] [facility], [address] [place] [address], [address] [facility], [place], [address], [employer] Attendant: Zander Doherty MD [facility] Date/Time: [facility] Results Received Date/Time: [facility] Reported Date/Time: Performed By: #### 3 4F, [id number] #### [facility] [address] [place] [address] Q - URINALYSIS,COMPLETEon Appearance (U) TURBID Abnormal CLEAR [facility] Specialist Comment on above: Order Comment: [facility] performed at: [employer], [address] [facility], [address] [facility], [address] [place] [address], [address] [place] [address], [employer] Attendant: Zander Doherty MD [facility] Date/Time: [facility] Results Received Date/Time: [facility] Reported Date/Time: Performed By: #### 3 4F, [id number] #### [facility] [address] [place] [address] BACTERIA NONE SEEN Normal NONE SEEN [facility] Specialist Comment on above: Order Comment: [facility] performed at: [employer], [address] [facility], [address] , [address] [place] [address], [address] [place] [address], [employer] Attendant: Zander Doherty MD [facility] Date/Time: [facility] Results Received Date/Time: [facility] Reported Date/Time: Performed By: #### 3 4F, [id number] #### [facility] [address] [place] [address] Bilirubin Ql (U) Negative Normal NEGATIVE [facility] Specialist Comment on above: Order Comment: [facility] performed at: [employer], [address] [facility], [address] , [address] [place] [address], [address] [place] [address], [employer] Attendant: Zander Doherty MD [facility] Date/Time: [facility] Results Received Date/Time: [facility] Reported Date/Time: Performed By: #### 3 4F, [id number] #### [facility] [address] [place] [address] CALCIUM OXALATE CRYSTALS MODERATE Abnormal NONE OR FEW [facility] Specialist Comment on above: Order Comment: [facility] performed at: [employer], [address] [facility], [address] , [address] [place] [address], [address] [place] [address], [employer] Attendant: Zander Doherty MD [facility] Date/Time: [facility] Results Received Date/Time: [facility] Reported Date/Time: Performed By: #### 3 4F, [id number] #### [facility] [address] [place] [address] Color (U) DARK YELLOW Normal YELLOW [facility] Risk Consultant Comment on above: Order Comment: [facility] performed at: [employer], [address] [facility], [address] , [address] [place] [address], [address] [place] [address], [employer] Attendant: Zander Doherty MD [facility] Date/Time: [facility] Results Received Date/Time: [facility] Reported Date/Time: Performed By: #### 3 4F, [id number] #### [facility] [address] [place] [address] Glucose Ql (U) Negative Normal NEGATIVE [facility] Risk Consultant Comment on above: Order Comment: [facility] performed at: [employer], [address] [facility], [address] , [address] [place] [address], [address] [place] [address], [employer] Attendant: Zander Doherty MD [facility] Date/Time: [facility] Results Received Date/Time: [facility] Reported Date/Time: Performed By: #### 3 4F, [id number] #### [facility] [address] [place] [address] HYALINE CAST NONE SEEN Normal NONE SEEN [facility] Risk Consultant Comment on above: Order Comment: [facility] performed at: [employer] [facility], [address] , [address] [place] [address], [address] [place] [address], [employer] Attendant: Zander Doherty MD [facility] Date/Time: [facility] Results Received Date/Time: [facility] Reported Date/Time: Performed By: #### 3 4F, [id number] #### [facility] [address] [place] [address] Ketones Ql (U) TRACE Abnormal NEGATIVE [facility] Risk Consultant Comment on above: Order Comment: [facility] performed at: [employer], [address] [facility], [address] , [address] [place] [address], [address] [place] [address], [employer] Attendant: Zander Doherty MD [facility] Date/Time: [facility] Results Received Date/Time: [facility] Reported Date/Time: Performed By: #### 3 4F, [id number] #### [facility] [address] [place] [address] Leukocyte esterase Test strip Ql (U) Negative Normal NEGATIVE [facility] Risk Consultant Comment on above: Order Comment: [facility] performed at: [employer], [address] [facility], [address] , [address] [place] [address], [address] [place] [address], [employer] Attendant: Zander Doherty MD [facility] Date/Time: [facility] Results Received Date/Time: [facility] Reported Date/Time: Performed By: #### 3 4F, [id number] #### [facility] [address] [place] [address] Nitrite Ql (U) Negative Normal NEGATIVE [facility] Risk Consultant Comment on above: Order Comment: [facility] performed at: [employer], [address] [facility], [address] , [address] [place] [address], [address] [place] [address], [employer] Attendant: Zander Doherty MD [facility] Date/Time: [facility] Results Received Date/Time: [facility] Reported Date/Time: Performed By: #### 3 4F, [id number] #### [facility] [address] [place] [address] OCCULT BLOOD Negative Normal NEGATIVE [facility] Risk Consultant Comment on above: Order Comment: [facility] performed at: [employer], [address] [facility], [address] [facility], [address] [place] [address], [address] [place] [address], [employer] Attendant: Zander Doherty MD [facility] Date/Time: [facility] Results Received Date/Time: [facility] Reported Date/Time: Performed By: #### 3 4F, [id number] #### [facility] [address] [place] [address] pH (U) 5.5 [pH] Normal 5.0-8.0 [facility] Risk Consultant Comment on above: Order Comment: [facility] performed at: [email or web address], [address] [facility], [address] [facility], [address] [place] [address], [address] [place] [address], [employer] Attendant: Zander Doherty MD [facility] Date/Time: [facility] Results Received Date/Time: [facility] Reported Date/Time: Performed By: #### 3 4F, [id number] #### [facility] [address] [place] [address] Protein Ql (U) TRACE Abnormal NEGATIVE [facility] Specialist Comment on above: Order Comment: [facility] performed at: [email or web address], [address] [facility], [address] [place] [address], [address] [place] [address], [address] [place] [address], [employer] Attendant: Zander Doherty MD [facility] Date/Time: [facility] Results Received Date/Time: [facility] Reported Date/Time: Performed By: #### 3 4F, [id number] #### [facility] [address] [place] [address] RBC NONE SEEN Normal < OR = 2 [facility] Risk Consultant Comment on above: Order Comment: [facility] performed at: [employer], [address] [facility], [address] [facility], [address] [place] [address], [address] [place] [address], [employer] Attendant: Zander Doherty MD [facility] Date/Time: [facility] Results Received Date/Time: [facility] Reported Date/Time: Performed By: #### 3 4F, [id number] #### [facility] [address] [place] [address] Specific gravity (U) [Rel density] 1.034 Normal 1.001-1.035 [facility] Risk Consultant Comment on above: Order Comment: [facility] performed at: [facility], [address] [facility], [address], [address] [place] [address], [address] [place] [address], [employer] Attendant: Zander Doherty MD [facility] Date/Time: [facility] Results Received Date/Time: [facility] Reported Date/Time: Performed By: #### 3 4F, [id number] #### [facility] [address] [place] [address] SQUAMOUS EPITHELIAL CELLS 0-5 Normal < OR = 5 [facility] Specialist Comment on above: Order Comment: [facility] performed at: [facility], [address] [facility], [address] [place] [address], [address] [place] [address], [address] [place] [address], [employer] Attendant: Zander Doherty MD [facility] Date/Time: [facility] Results Received Date/Time: [facility] Reported Date/Time: Performed By: #### 3 4F, [id number] #### [facility] [address] [place] [address] WBC NONE SEEN Normal < OR = 5 [facility] Specialist Comment on above: Order Comment: [facility] performed at: [facility], [address] [facility], [address] [place] [address], [address] [place] [address], [address] [place] [address], [employer] Attendant: Zander Doherty MD [facility] Date/Time: [facility] Results Received Date/Time: [facility] Reported Date/Time: Performed By: #### 3 4F, [id number] #### [facility] [address] [place] [address] TSHon 01-06-2022 TSH 0.208 uIU/mL Low 0.400-4.500 [facility] Risk Consultant Comment on above: Performed By: #### T 4, CMP, TSH, LIPD, CBC #### [facility] [address] [place], [place] [id number] Total T4on 01-06-2022 T4 [Mass/Vol] 7.9 ug/dL Normal 4.5-11.7 [facility] Risk Consultant Comment on above: Performed By: #### T 4, CMP, TSH, LIPD, CBC #### [facility] [address], [place] [id number] US Thyroidon 01-06-2022 US Thyroid FINDINGS: Right [...] by Dimas Valentino on 01/07/2022 1021 Normal [facility] Risk Consultant Vital Signs Date Time Vital Sign Value Performing Clinician Jada hill 09-15-2024 08:47-0500 Body mass index (BMI) [Ratio] 32.2 kg/m2 Mary Jo NUÑEZ Work Phone: [facility] 09-15-2024 08:47-0500 Body weight 87.09 kg Mary Jo Worton PA Work Phone: [facility] 09-15-2024 08:47-0500 Diastolic blood pressure 74 mm[Hg] Mary Jo Nicolas PA Work Phone: [facility] 09-15-2024 08:47-0500 Systolic blood pressure 118 mm[Hg] Mary Jo Nicolas PA Work Phone: [facility] 09-01-2024 09:02-0500 Body mass index (BMI) [Ratio] 31.36 kg/m2 Mary Jo Worton PA Work Phone: [facility] 09-01-2024 09:02-0500 Body weight 84.82 kg Mary Jo Nicolas PA Work Phone: [facility] 09-01-2024 09:02-0500 Diastolic blood pressure 70 mm[Hg] Mary Jo Worton PA Work Phone: [facility] 09-01-2024 09:02-0500 Systolic blood pressure 114 mm[Hg] Mary Jo Nicolas PA Work Phone: [facility] 08-18-2024 08:43-0400 Body mass index (BMI) [Ratio] 30.71 kg/m2 Brandon Rosa DO Work Phone: [facility] 08-18-2024 08:43-0400 Body weight 83.06 kg Brandon Rosa DO Work Phone: [facility] 08-18-2024 08:43-0400 Diastolic blood pressure 68 mm[Hg] Brandon Rosa DO Work Phone: [facility] 08-18-2024 08:43-0400 Systolic blood pressure 110 mm[Hg] Brandon Rosa DO Work Phone: [facility] 08-02-2024 08:46-0400 Body mass index (BMI) [Ratio] 30.49 kg/m2 Mary Jo Worton PA Work Phone: [facility] 08-02-2024 08:46-0400 Body weight 82.46 kg Mary Jo Nicolas PA Work Phone: [facility] 08-02-2024 08:46-0400 Diastolic blood pressure 70 mm[Hg] Mary Jo NUÑEZ Work Phone: [facility] 08-02-2024 08:46-0400 Systolic blood pressure 100 mm[Hg] Mary Jo NUÑEZ Work Phone: [facility] Healthcare Encounters Encounter Date Encounter Type Care Provider Facility Start: 09-15-2024 End: 09-15-2024 Bamboo flowsheet Mary Jo Brink PA Work Phone: [facility] Start: 09-15-2024 End: 09-15-2024 Bamboo flowsheet Mary Jo Brink PA Work Phone: [facility] Start: 09-15-2024 End: 09-15-2024 flow sheet Mary Jo NUÑEZ Work Phone: [facility] Comment on above: Third trimester preg jefe; 34 weeks gestation of ; Excessive growth affecting management of in third trimester, single or unspecified fetus Start: 09-15-2024 End: 09-15-2024 ambulatory MARY JO BRINK Not Available Start: 09-01-2024 End: 09-01-2024 Bamboo flowsheet Mary Jo NUÑEZ Work Phone: [facility] Start: 09-01-2024 End: 09-01-2024 Bamboo flowsheet Mary Jo Brink PA Work Phone: [facility] Start: 09-01-2024 End: 09-01-2024 flow sheet Mary Jo Brink PA Work Phone: [facility] Comment on above: Third trimester preg jefe; 32 weeks gestation of Start: 09-01-2024 End: 09-01-2024 ambulatory MARY JO BRINK Not Available Start: 08-18-2024 End: 08-18-2024 Bamboo flowsheet Brandon Rosa DO Work Phone: [facility] Start: 08-18-2024 End: 08-18-2024 Bamboo flowsheet Brandon Rosa DO Work Phone: [facility] Start: 08-18-2024 End: 08-18-2024 ambulatory BRANDON ROSA Not Available Start: 08-18-2024 End: 08-18-2024 flow sheet Brandon Rosa DO Work Phone: [facility] Comment on above: Third trimester preg jefe; 30 weeks gestation of Start: 08-02-2024 End: 08-02-2024 Bamboo flowsheet Mary Jo NUÑEZ Work Phone: [facility] Start: 08-02-2024 End: 08-02-2024 Bamboo flowsheet Mary Jo NUÑEZ Work Phone: [facility] Start: 08-02-2024 End: 08-02-2024 ambulatory MARY JO BRINK Not Available Start: 08-02-2024 End: 08-02-2024 Office outpatient visit 15 minutes Mary Jo NUÑEZ Work Phone: [facility] Comment on above: 27 weeks gestation o f ; Second trimester ; size inconsistent with dates Start: 07-12-2024 End: 07-12-2024 ambulatory BRANDON ROSA Not Available Start: 06-13-2024 End: 06-13-2024 ambulatory BRANDON ROSA Not Available Start: 05-16-2024 End: 05-16-2024 ambulatory MARY JO BRINK Not Available Start: 04-18-2024 End: 04-18-2024 ambulatory BRANDON ROSA Not Available Start: 03-18-2024 End: 03-18-2024 ambulatory BRANDON ROSA Not Available Start: 11-07-2022 End: 11-07-[address] CNOCEPCIÓN PETERSON Facility:[facility] Start: 10-07-2022 End: 10-10-2022 ambulatory ISAIAH BANERJEE [facility] Start: 08-22-2022 ambulatory RENETTA COLLAZO [facility] Start: 08-20-2022 End: 08-21-2022 ambulatory BILL WORRELL [facility] Start: 03-15-2022 End: 03-15-[address] SARITHA WILEY Facility:[facility] Procedures Date Procedure Procedure Detail Performing Clinician Start: 09-15-2024 Urnls dip stick/tabl et rgnt non-auto w/o micrscp Mary Jo NUÑEZ Work Phone: Start: 09-01-2024 Urnls dip stick/tabl et rgnt non-auto w/o micrscp Mary Jo NUÑEZ Work Phone: Start: 08-18-2024 Urnls dip stick/tabl et rgnt non-auto w/o micrscp Brandon Lee DO Work Phone: Start: 08-02-2024 Urnls dip stick/tabl et rgnt non-auto w/o micrscp Mary Jo NUÑEZ Work Phone: Plan of Treatment Date Care Activity Detail Author Start: 09-29-2024 End: 09-29-2024 Patient encounter procedure 09/29/2024 8:30 AM EST Routine [facility] [address] [facility] [place] [id number] Brandon Lee, DO [address] [place] [address] [facility] Start: 09-29-2024 End: 09-29-2024 Professional / ancillary services management 09/29/2024 8:00 AM EST Ancillary Procedure [facility] [address] [place] [id number] [facility] Start: 09-15-2024 End: 09-15-2025 US for US OB SCAN FOR GROWTH Imaging Routine 34 weeks gestation of Excessive growth affecting management of in third trimester, single or unspecified fetus Expected: 09/15/2024 (Approximate), Expires: 09/15/2025 [facility] Work Phone: Comment on above: Expected: 09/15/2024 (Approximate), Expires: 09/15/2025 Start: 09-15-2024 End: 09-15-2024 Patient encounter procedure [facility] Comment on above: Arrived Start: 09-01-2024 End: 09-01-2024 Patient encounter procedure [facility] Comment on above: Arrived Start: 08-18-2024 End: 08-18-2024 Patient encounter procedure 08/18/2024 8:30 AM EDT Routine [facility] [address] [place] [address] Brandon Lee, DO [address] [place], [place] [id number] [facility] Start: 08-18-2024 End: 08-18-2024 Professional / ancillary services management 08/18/2024 8:00 AM EDT Ancillary Procedure [facility] [address] [place] [address] [facility] Start: 08-02-2024 End: 08-02-2025 US for US OB SCAN FOR GROWTH Imaging Routine size inconsistent with dates Expected: 08/02/2024 (Approximate), Expires: 08/02/2025 [facility] Work Phone: Comment on above: Expected: 08/02/2024 (Approximate), Expires: 08/02/2025 Start: 06-26-2024 Influenza vaccination Influenza Vacc ine (#1) [facility] Immunizations Immunization Date Immunization Notes Care Provider Jerry maradiaga 09-21-2017 influenza virus vacc ine, unspecified formulation Mary Jo NUÑEZ Work Phone: [facility] Payers Date Payer Category Payer Medicaid [id number] 2024 Private Health Insurance [employer] [id number] [address] [id number] 2024-Present [phone] [address] [place] [address] [id number] 2024 Unknown [id number] 1996 Unknown [id number] 2.16.840.1.929551.3.579.2. 593 1996 Unknown [id number] 2.16.840.1.946778.3.579.2. 593 1996 Unknown [id number] 2.16.840.1.902001.3.579.2. 1259 1996 Unknown [id number] 2.16.840.1.475171.3.579.2. 1259 1996 Unknown [id number] 2.16.840.1.951379.3.579.2. 1259 1996 Unknown [id number] 2.16.840.1.457903.3.579.2. 1259 1996 Unknown [id number] 2.16.840.1.391928.3.579.2. 1259 1996 Unknown [id number] 2.16.840.1.491891.3.579.2. 1259 1996 Unknown [id number] 2.16.840.1.752415.3.579.2. 1259 1996 Unknown [id number] 2.16.840.1.138062.3.579.2. 1259 1996 Unknown [id number] 2.16.840.1.786270.3.579.2. 1259 1959 Medicaid [id number] 1958 Unknown [id number] Social History Date Type Detail Facility Start: 05-16-2024 [facility] Start: 05-16-2024 Tobacco use and exposure Smoke less tobacco non-user [facility] Start: 07-12-2024 End: 09-15-2024 Alcoholic beverage intake Ex-drinker (finding) [facility] Start: 05-16-2024 History of Social function [facility] Start: 05-16-2024 Tobacco use panel [facility] Start: 02-04-2024 [facility] Start: 1995 Sex assigned at Female [facility] Clinical Notes 05-16-2022 to 09-15-2024 JOAQUIN Barrera - 09/15/2024 8:40 AM JOAQUIN Bryant - 09/01/2024 8:30 AM Conner Turner LPN - 08/18/2024 8:30 AM JOAQUIN [place] - 08/02/2024 8:30 AM EDT Note Date & Type Note Facility 09-15-2024 History of Present illness Narrative Reason for Appointment: Patient ID: Chani Stone is a 29 y.o. female who presents for Routine Visit Patient presents today for Return OB appointment. MEDICATIONS Current Outpatient Medications Medication Instructions albuterol HFA 90 mcg/act inhaler 2 puffs, Inhalation, Every 6 hours PRN [id number] ( 1 + IRON PO) ALLERGIES No Known Allergies PROBLEMS Active Ambulatory Problems Diagnosis Date Noted 30 weeks gestation of 08/18/2024 Third trimester 08/18/2024 Resolved Ambulatory Problems Diagnosis Date Noted No [...] Exam Constitutional: Appearance: Normal appearance. She is normal weight. HENT: Head: Normocephalic. Cardiovascular: Rate and Rhythm: Normal rate. Pulses: Normal pulses. Pulmonary: Effort: Pulmonary effort is normal. Breath sounds: Normal breath sounds. Abdominal: Palpations: Abdomen is soft. Musculoskeletal: General: Normal range of motion. Neurological: General: No focal deficit present. Mental Status: She is alert and oriented to person, place, and time. Psychiatric: Mood and Affect: Mood normal. Behavior: Behavior normal. Thought Content: Thought content normal. Judgment: Judgment normal. Vitals and nursing note reviewed. Vitals: Estimated body mass index is 31.36 kg/m as calculated from the following: Height as of 11/07/22: 5' 4.75 . Weight as of 09/01/24: 187 lb. BP: Patient's last menstrual period was 01/21/2024. ASSESSMENT & PLAN ICD-10-CM 1. Third trimester Z34.93 POCT urinalysis dipstick manually resulted 2. 34 weeks gestation of Z3A.34 Return OB: Patient presents today for a routine obstetrics appointment. Patient is currently 34w0d . Patient states she is doing well but has complaints of being tired and cramping due to current . Patient has verbalizes frequent movement. labor precautions was discussed/given and patient was instructed to perform kick counts three times a day. Orders Placed This Encounter Procedures POCT urinalysis dipstick manually resulted Follow Up: Patient is to return to office in 2 week for routine OB appointment. Documented by Chuyita Esparza MA on behalf of: JOAQUIN Barrera documented in this encounter [facility] 09-01-2024 History of Present illness Narrative Reason for Appointment: Patient ID: Chani Stone is a 29 y.o. female who presents for Routine Visit Patient presents today for Return OB appointment. MEDICATIONS Current Outpatient Medications Medication Instructions albuterol HFA 90 mcg/act inhaler 2 puffs, Inhalation, Every 6 hours PRN [id number]-[id number]-[id number] ( 1 + IRON PO) ALLERGIES No Known Allergies PROBLEMS Active Ambulatory Problems Diagnosis Date Noted 30 weeks gestation of 08/18/2024 Third trimester 08/18/2024 Resolved Ambulatory Problems Diagnosis Date Noted No [...] Exam Constitutional: Appearance: Normal appearance. She is normal weight. HENT: Head: Normocephalic. Cardiovascular: Rate and Rhythm: Normal rate. Pulses: Normal pulses. Pulmonary: Effort: Pulmonary effort is normal. Breath sounds: Normal breath sounds. Abdominal: Palpations: Abdomen is soft. Musculoskeletal: General: Normal range of motion. Neurological: General: No focal deficit present. Mental Status: She is alert and oriented to person, place, and time. Psychiatric: Mood and Affect: Mood normal. Behavior: Behavior normal. Thought Content: Thought content normal. Judgment: Judgment normal. Vitals and nursing note reviewed. Vitals: Estimated body mass index is 30.71 kg/m as calculated from the following: Height as of 11/07/22: 5' 4.75 . Weight as of 08/18/24: 183 lb 1.9 oz. BP: Patient's last menstrual period was 01/21/2024. ASSESSMENT & PLAN ICD-10-CM 1. Third trimester Z34.93 POCT urinalysis dipstick manually resulted 2. 32 weeks gestation of Z3A.32 Return OB: Patient presents today for a routine obstetrics appointment. Patient is currently 32w0d . Patient states she is doing well but has complaints of being tired and has some swelling in her fingers/feet due to current . Patient has verbalizes frequent movement. labor precautions was discussed/given and patient was instructed to perform kick counts three times a day. Orders Placed This Encounter Procedures POCT urinalysis dipstick manually resulted Follow Up: Patient is to return to office in 2 week for routine OB appointment. Documented by Chuyita Esparza MA on behalf of: JOAQUIN Barrera documented in this encounter [facility] 08-18-2024 History of Present illness Narrative Reason for Appointment: Patient ID: Chani Stone is a 29 y.o. female who presents for Routine Visit Patient presents today for Return OB appointment. MEDICATIONS Current Outpatient Medications Medication Instructions albuterol HFA 90 mcg/act inhaler 2 puffs, Inhalation, Every 6 hours PRN Shikwfzz-Yyv-Si-FA ( 1 + IRON PO) ALLERGIES No [...] SYSTEMS Review of Systems: Review of Systems All other systems reviewed and are negative. OBJECTIVE Objective: Physical Exam Constitutional: Appearance: Normal [...] nursing note reviewed. Exam conducted with a air brush artist present. Vitals: Estimated body mass index is 30.71 kg/m as calculated from the following: Height as of 11/07/22: 5' 4.75 . Weight as of this encounter: 183 lb 1.9 oz. BP: 110/68 Patient's last menstrual period was 01/21/2024. ASSESSMENT & PLAN ICD-10-CM 1. Third trimester Z34.93 Urine dip 2. 30 weeks gestation of Z3A.30 Urine dip Patient presents today for a routine obstetrics appointment. Patient is currently 30w0d with a Estimated Date of Delivery: 10/27/24. Patient had growth scan this morning prior to appointment. Patient to return to clinic in 2 weeks for routine OB appointment. Documented by Mary Turner LPN on behalf of: Brandon Lee DO documented in this encounter [facility] 08-02-2024 History of Present illness Narrative Reason for Appointment: Patient ID: Chani Stone is a 29 y.o. female who presents for Routine Visit Patient presents today for Return OB appointment. MEDICATIONS Current Outpatient Medications Medication Instructions albuterol HFA 90 mcg/act inhaler 2 puffs, Inhalation, Every 6 hours PRN [id number]-[id number]-FA ( 1 + IRON PO) ALLERGIES No [...] nursing note reviewed. Exam conducted with a air brush artist present. 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 Patient History [...] PT/chiropractic therapy Start Neurontin F/U 3 months [facility] 08-22-2022 Note Sports Medicine Subj ective Pain [...] office. Renetta Collazo MD, [facility] 08-20-2022 Note Attestation signed by Bill Worrell MD at 08/20/2022 4:45 PM I personally saw and examined the patient on the same date of service as resident. I discussed the findings and therapeutic plan with the resident. I agree with the documentation, except for any edits/updates below. 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 Patient History [...] be an additional personal documentation from me. [facility] 05-16-2022 Note HISTORY: Left sided pain and tingling PROCEDURE: [employer] HDXT 1.5. Sagittal T1, T2, STIR [...] signed by Dimas Valentino on 05/19/2022 1134 [facility] Risk Consultant Evaluation note Diagnosis 27 weeks gestation of Second trimester state, incidental size inconsistent with dates [facility] Diagnosis Third trimester state, incidental 30 weeks gestation of [facility] Diagnosis Third trimester state, incidental 32 weeks gestation of [facility] Diagnosis Third trimester state, incidental 34 weeks gestation of Excessive growth affecting management of in third trimester, single or unspecified fetus documented in this encounter [facility] Summary Purpose Family History No Family History Records FoundNo Family History Records FoundNo Family History Records FoundNo Family History Records Found Advance Directives No Advanced Directives Records FoundNo Advanced Directives Records FoundNo Advanced Directives Records FoundNo Advanced Directives Records Found Additional Source Comments INFORMATION SOURCE (unrecogn ized section and content) DATE CREATED AUTHOR 05/19/2022 [facility] dical Specialist DATE CREATED AUTHOR AUTHOR'S ORGANIZ ATION 11/18/2022 [facility] DATE CREATED AUTHOR AUTHOR'S ORGANIZ ATION 02/07/2023 [facility] DATE CREATED AUTHOR AUTHOR'S ORGANIZ ATION 09/18/2024 [facility] dical Specialists EPIC Care Teams (unrecognized sec tion and content) [employer] Relationship Specialty Start Date End Date Saritha Wiley MD [address] [place] [address] PCP - General Family Medicine 03/03/23 Joi Bravo MD PCP - [facility] 04/25/24 [employer] Relationship Specialty Start Date End Date Saritha Wiley MD [address] [place] [address] PCP - General Family Medicine 03/03/23 Joi Bravo MD PCP - [facility] 04/25/24 [employer] Relationship Specialty Start Date End Date Saritha Wiley MD [address] [place] [address] PCP - General Family Medicine 03/03/23 Joi Bravo MD PCP - [facility] 04/25/24 [employer] Relationship Specialty Start Date End Date Saritha Wiley MD [address] [place] [address] PCP - General Family Medicine 03/03/23 Joi Bravo MD PCP - [facility] 04/25/24 [employer] Relationship Specialty Start Date End Date Saritha Wiley MD [address] [place] [address] PCP - General Family Medicine 03/03/23 [employer] Relationship Specialty Start Date End Date Saritha Wiley MD [address] [place] [address] PCP - General Family Medicine 03/03/23 [employer] Relationship Specialty Start Date End Date Saritha Wiley MD [address] [place] [address] PCP - General Family Medicine 03/03/23 Reason for Visit (unrecogniz ed section and [...] BE BASED ON THE PRIMARY CLINICAL RECORDS. [facility] [employer] provides no warranty or guarantee of the accuracy or completeness of information in this document.
== END 2024-09-29 08:03 | disposition home or self-care (01) ==
LOC: NOMS 08:03
PROVIDERS: PCP Family Medicine; Visit Provider Physician Assistant
DX: O36.63X0 Maternal care for excessive fetal growth, third trimester, not applicable or unspecified (principal); Z3A.00 Weeks of gestation of pregnancy not specified
CPT/HCPCS: 76816; 87081; 87150

== ENCOUNTER 2024-09-29 20:56 | Outpatient (REF) | payer BC, MEDICAID, SELFPAY ==
--- OUTSIDE RECORDS SUMMARY | 2024-09-29 21:00 | XMS_ITS | CCD ---
Author Organization [facility] Care Team Providers Care Yeast Culture Developer Name Role Phone DR SARITHA WILEY Primary Care Unavailable NATALIIA INIGUEZ Admitting Unavailable NATALIIA INIGUEZ Consulting Unavailable NATALIIA INIGUEZ Attending Unavailable KRISTEN, DR BEEBE Attending Unavailable DR SARITHA WILEY Primary Care Unavailable KRISTEN, DR BEEBE Admitting Unavailable KRSITEN, DR BEEBE Consulting Unavailable GAYATRI WORRELLIL Referring [...] Drug Class(es) Dates Sig (Normalized) Sig (Original) [id number] 200 actuat albuterol 0.09 mg/actuat metered dose inhaler (12 sources) beta2-Adrenergic Agonist take 2 puff(s) by inhalation every six hours albuterol HFA 90 mcg/act inhaler Inhale 2 puffs every 6 (six) hours if needed Active Jamignle-Oct-Hc-FA ( 1 + IRON PO) (12 sources) Ujfmtqap-Mjz-Em-FA ( 1 + IRON PO) Active Problems [...] UA Negative Negative - 4(70) +++ mg/dL [facility] Blood, UA Negative Negative - 50 Karl/mcL [facility] Clarity, UA Clear [facility] Color, UA Yellow [facility] Glucose, UA Negative Negative - 1999(110) ++++ mg/dL [facility] Interpretation and review of laboratory results Normal [facility] Ketones, UA Negative Negative - 160(16) ++++ mg/dL [facility] Leukocytes, UA Negative Negative - 500+++ Serene/mcL [facility] Nitrite, UA Negative Negative - Positive [facility] pH, UA 6.5 5 - 9 [facility] Protein, UA Negative Negative - 1999(20) ++++ mg/dL [facility] Spec Grav, UA 1.025 1 - 1.03 [facility] Urobilinogen, UA 0.2 0.2 - 12 mg/dL [facility]inal[facility] macro (dipstick) panel (U)on 09-01-2024 Bilirubin, UA Negative Negative - 4(70) +++ mg/dL [facility] Blood, UA Negative Negative - 50 Karl/mcL [facility] Clarity, UA Clear [facility] Color, UA Yellow [facility] Glucose, UA Negative Negative - 1999(110) ++++ mg/dL [facility] Interpretation and review of laboratory results Normal [facility] Ketones, UA Negative Negative - 160(16) ++++ mg/dL [facility] Leukocytes, UA Negative Negative - 500+++ Serene/mcL [facility] Nitrite, UA Negative Negative - Positive [facility] pH, UA 6.5 5 - 9 [facility] Protein, UA Negative Negative - 1999(20) ++++ mg/dL [facility] Spec Grav, UA 1.01 1 - 1.03 [facility] care Urobilinogen, UA 0.2 0.2 - 12 mg/dL [facility] Healthcare [facility] Urinalysis macro (dipstick) panel (U)on 08-18-2024 Bilirubin, UA Negative Negative - 4(70) +++ mg/dL [facility] Blood, UA Negative Negative - 50 Karl/mcL [facility] Clarity, UA Clear [facility] Color, UA Yellow [facility] Glucose, UA Negative Negative - 1999(110) ++++ mg/dL [facility] Interpretation and review of laboratory results Normal [facility] Ketones, UA Negative Negative - 160(16) ++++ mg/dL [facility] Leukocytes, UA Negative Negative - 500+++ Serene/mcL [facility] Nitrite, UA Negative Negative - Positive [facility] pH, UA 5.5 5 - 9 [facility] Protein, UA Negative Negative - 1999(20) ++++ mg/dL [facility] Spec Grav, UA 1.025 1 - 1.03 [facility] care Urobilinogen, UA 1.0 0.2 - 12 mg/dL [facility] Urinalysis macro (dipstick) panel (U)on 08-02-2024 Bilirubin, UA Negative Negative - 4(70) +++ mg/dL [facility] Blood, UA Negative Negative - 50 Karl/mcL [facility] Clarity, UA Clear [facility] Color, UA Yellow [facility] Glucose, UA Negative Negative - 1999(110) ++++ mg/dL [facility] Interpretation and review of laboratory results Normal [facility] Ketones, UA Negative Negative - 160(16) ++++ mg/dL [facility] Leukocytes, UA Negative Negative - 500+++ Serene/mcL [facility] Nitrite, UA Negative Negative - Positive [facility] pH, UA 6.5 5 - 9 [facility] Protein, UA Negative Negative - 1999(20) ++++ mg/dL [facility] Spec Grav, UA 1.025 1 - 1.03 [facility] care Urobilinogen, UA 0.2 0.2 - 12 mg/dL [facility] Refillon 12-02-2022 Refill [id number] Joan Stone 1995 F Date Provider Department Center 12/02/[address] [facility] Family History Family Status - Relation Status Age at Mother Alive Father Alive Reason for Visit and Comments: Med Refill [[id number]] Normal [facility] PAP ACOG PANEL 2: 21 to 29on 11-12-2022 . . Normal [facility] Comment on above: Performed By: #### [id number] #### [facility] [address] [place] [address] Dr. Asher Renee Age Gdln ACOG Testing 21-29 [facility] Comment on above: Performed By: #### [id number] #### [facility] [address] [place] [address] Dr. Asher Renee DIAGNOSIS: Comment [facility] Comment on above: Result Comment: NEGA TIVE FOR INTRAEPITHELIAL LESION OR MALIGNANCY. Performed By: #### [id number] #### [facility] [address] [place] [address] Dr. Asher Renee Methodology: Comment [facility] Comment on above: Result Comment: This liquid based ThinPrep(R) pap test was screened with the use of an image guided system. Performed By: #### [id number] #### [facility] [address] [place] [address] Dr. Asher Renee Note: Comment [facility] Comment on above: Result Comment: The Pap smear is a screening test designed to aid in the detection of premalignant and malignant conditions of the uterine cervix. It is not a diagnostic procedure and should not be used as the sole means of detecting cervical cancer. Both false-positive and false-negative reports do occur. . Performed By: #### [id number] #### [facility] [address] [place] [address] Dr. Asher Renee Performed by: Comment Normal [facility] Comment on above: Result Comment: Josephine Santiago Crab Steamer (ASCP) Performed By: #### [id number] #### [facility] [address] [place] [address] Dr. Asher Renee Reflex Criteria: Comment [facility] Comment on above: Result Comment: The HPV DNA reflex criteria were not met with this specimen result therefore, no HPV testing was performed. . Performed By: #### 4 [id number] #### [facility] [address] [place] [address] Dr. Asher Renee Specimen adequacy: Comment Normal [facility] Comment on above: Result Comment: Sati sfactory for evaluation. No endocervical component is identified. Performed By: #### 4 [id number] #### [facility] [address] [address] [address] Asher Renee 36on 10-28-2022 37 Approving, but needs appt for additional refills. Normal [facility] Follow-Upon 10-07-2022 Follow-Up [id number] ScaryenikeyonaJoan 1995 F [facility] Provider Department Center 10/07/2022 Nevaeh-ISAIAH BANERJEE MP [facility] Family History Family Status - Relation Status Age at Mother Alive Father Alive Level of Service:78838 [place] OFFICE/OUTPATIENT ESTABLISHED LOW MDM 20-29 MIN Reason for Visit and Comments: Follow-up [[id number]] - Pt here for low back pain Normal [facility] 36on 09-22-2022 37 Approving, but needs appt for additional refills. Normal [facility] Procedure Visiton 08-22-2022 Procedure Visit [id number] Joan Stone 1995 F [facility] Provider Department [place] 08/22/2022 RENETTA CHÁVEZ MP [facility] Family History Family Status - Relation Status Age at Mother Alive Father Alive Level of Service:79154 ND OFFICE/OUTPATIENT NEW LOW MDM 30-44 MINUTES (25) Reason for Visit and Comments: Pain [136] - Left SI joint CSI USG Normal [facility] Office Visiton 08-20-2022 Follow-up visit [id number] ScaryenikeyonaJoan 1995 F [facility] Provider Department [place] 08/20/2022 260-BILL WORRELL MP [facility] Chart Close Cosign Required by: Bill Worrell MD[[id number]] No family history on file Level of Service:77488 ND OFFICE/OUTPATIENT NEW LOW MDM 30-44 MINUTES (GC) Normal [facility] US OB 1ST Trimesteron 2021 US OB [...] by Ruy Luo on 03/17/2022 1627 Normal [facility] CBC AUTO DIFFon 03-15-2022 BASO # 0.0 103/ul Normal 0.0-0.1 [facility] Comment on above: Performed By: #### C BC #### [facility] [address] [place] [address] Dr. Asher Renee Basophils/100 WBC (Bld) 0.5 % Normal 0.2-2.0 [facility] Comment on above: Performed By: #### C BC #### [facility] [address] [address] [address] Asher Renee EO # 0.1 103/ul Normal 0.0-0.7 [facility] Comment on above: Performed By: #### C BC #### [facility] [address] [place] [address] Dr. Asher Renee Eosinophils/100 WBC (Bld) 1.1 % Normal 0.9-7.0 [facility] Comment on above: Performed By: #### C BC #### [facility] [address] [address] [address] Asher Renee Erythrocyte distribution width (RBC) [Ratio] 12.5 % Normal 11.0-15.0 [facility] Comment on above: Performed By: #### C BC #### [facility] [address] [place] [address] Dr. Asher Renee Hematocrit (Bld) [Volume fraction] 38.8 % Normal 36.0-48.0 [facility] Comment on above: Performed By: #### C BC #### [facility] [address] [place] [address] Dr. Asher Renee Hemoglobin (Bld) [Mass/Vol] 12.8 g/dL Normal 12.0-16.0 [facility] Comment on above: Performed By: #### C BC #### [facility] [address] [place] [address] Dr. Asher Renee IG # 0.02 10e3/ul Normal 0.00-0.03 [facility] Comment on above: Performed By: #### C BC #### [facility] [address] [place] [address] Dr. Asher Renee IG % 0.3 % Normal 0.0-0.5 [facility] Comment on above: Performed By: #### C BC #### [facility] [address] [place] [address] Dr. Asher Renee LYMPH # 1.7 103/ul Normal 1.2-3.8 [facility] Comment on above: Performed By: #### C BC #### [facility] [address] [place] [address] Dr. Asher Renee Lymphocytes/100 WBC (Bld) 26.2 % Normal 20.5-60.0 [facility] Comment on above: Performed By: #### C BC #### [facility] [address] [place] [address] Dr. Asher Renee MANUAL DIFF REQ NO Normal [facility] Comment on above: Performed By: #### C BC #### [facility] [address] [place] [address] Dr. Asher Renee MCH (RBC) [Entitic mass] 30.5 pg Normal 26.7-34.0 [facility] Comment on above: Performed By: #### C BC #### [facility] [address] [place] [address] Dr. Asher Renee MCHC (RBC) [Mass/Vol] 33.0 g/dL Normal 29.9-35.2 [facility] Comment on above: Performed By: #### C BC #### [facility] [id number] Asher Renee MCV (RBC) [Entitic vol] 92.4 fL Normal 81.0-99.0 [facility] Comment on above: Performed By: #### C BC #### [facility] [address] [place] [address] Dr. Asher Renee MONO # 0.5 103/ul Normal 0.3-0.8 [facility] Comment on above: Performed By: #### C BC #### [facility] [address] [place] [address] Dr. Asher Renee Monocytes/100 WBC (Bld) 7.4 % Normal 1.7-12.0 [facility] Comment on above: Performed By: #### C BC #### [facility] [address] [place] [address] Dr. Asher Renee NEUT # 4.2 103/ul Normal 1.4-6.5 [facility] Comment on above: Performed By: #### C BC #### [facility] [address] [place] [address] Dr. Asher Renee Neutrophils/100 WBC (Bld) 64.5 % Normal 43.0-75.0 [facility] Comment on above: Performed By: #### C BC #### [facility] [address] [place] [address] Dr. Asher Renee Platelet mean volume (Bld) [Entitic vol] 10.8 fL Normal 9.5-13.5 [facility] Comment on above: Performed By: #### C BC #### [facility] [address] [place] [address] Dr. Asher Renee PLT 213 103/ul Normal 150-450 [facility] Comment on above: Performed By: #### C BC #### [facility] [address] [place] [address] Dr. Asher Renee RBC 4.20 106/ul Normal 4.20-5.40 [facility] Comment on above: Performed By: #### C BC #### [facility] [address] [place] [address] Dr. Asher Renee WBC 6.5 103/ul Normal 4.0-11.0 [facility] Comment on above: Performed By: #### C BC #### [facility] [address] [place] [address] Dr. Asher Renee PREG QUANT HCGon 03-15-2022 HCG QUANT 58 mIU/mL Normal [facility] Comment on above: Performed By: #### P REGQNT #### [facility] [address] [place] [address] Dr. Asher Renee HCG RANGE SEE BELOW Normal [facility] Comment on above: Result Comment: 5-50 0-1 WEEK 40-300 1-2 WEEKS 100-1,000 2-3 WEEKS 500-6,000 3-4 WEEKS 5,000-200,000 1-2 MONTHS 10,000-100,000 2-3 MONTHS 3,000-50,000 2ND TRIMESTER 1,000-50,000 3RD TRIMESTER Performed By: #### P REGQNT #### [facility] [address] [place] [address] Dr. Asher Renee PROF CHEM 8 (BAS METB)on Anion gap [Moles/Vol] 11.9 mmol/L Normal [facility] Comment on above: Performed By: #### B MP #### [facility] [address] [place] [address] Dr. Asher Renee Calcium [Mass/Vol] 9.0 mg/dL Normal 8.5-10.1 [facility] Comment on above: Performed By: #### B MP #### [facility] [address] [place] [address] Dr. Asher Renee Chloride [Moles/Vol] 105 mmol/L Normal 98-107 [facility] Comment on above: Performed By: #### B MP #### [facility] [address] [place] [address] Dr. Asher Renee CO2 [Moles/Vol] 27.7 mmol/L Normal 21.0-32.0 [facility] Comment on above: Performed By: #### B MP #### [facility] [address] [place] [address] Dr. Asher Renee Creatinine [Mass/Vol] 0.55 mg/dL Normal 0.55-1.02 [facility] Comment on above: Performed By: #### B MP #### [facility] [address] [place] [address] Dr. Asher Renee EGFR-AF SIERRA LEONEAN >60 Normal >=60 [facility] Comment on above: Performed By: #### B MP #### [facility] [address] [address] [address] Asher Renee EGFR-NON AF SIERRA LEONEAN >60 Normal >=60 [facility] Comment on above: Performed By: #### B MP #### [facility] [address] [place] [address] Dr. Asher Reene Glucose [Mass/Vol] 95 mg/dL Normal 74-106 [facility] Comment on above: Performed By: #### B MP #### [facility] [address] [place] [address] Dr. Asher Renee Potassium [Moles/Vol] 3.6 mmol/L Normal 3.5-5.1 [facility] Comment on above: Performed By: #### B MP #### [facility] [address] [place] [address] Dr. Asher Renee Sodium [Moles/Vol] 141 mmol/L Normal 136-145 [facility] Comment on above: Performed By: #### B MP #### [facility] [address] [place] [address] Dr. Asher Renee Urea nitrogen [Mass/Vol] 10.0 mg/dL Normal 7.0-18.0 [facility] Comment on above: Performed By: #### B MP #### [facility] [address] [place] [address] Dr. Asher Renee Urea nitrogen/Creatinine [Mass ratio] 18.2 mg/mg Normal [facility] Comment on above: Performed By: #### B MP #### [facility] [address] [place] [address] Dr. Asher Renee US RUQon 02-24-2022 US [...] by Dimas Valentino on 02/24/2022 1035 Normal [facility] XR Spine Lumbar Complete w/F jey AND Friona 02-14-2022 XR Spine Lumbar Complete w/Flex AND [...] by Dimas Valentino on 02/14/2022 1555 Normal [facility] Complete Blood Counton 01-06 Erythrocyte distribution width (RBC) [Ratio] 12.4 % Normal 11.0-15.0 [facility] Comment on above: Performed By: #### T 4, CMP, TSH, LIPD, CBC #### [facility] [address], [place] [id number] Hematocrit (Bld) [Volume fraction] 45.5 % Normal 35.0-47.0 [facility] Comment on above: Performed By: #### T 4, CMP, TSH, LIPD, CBC #### [facility] [address], [place] [id number] Hemoglobin (Bld) [Mass/Vol] 15.1 g/dL Normal 11.6-15.5 [facility] Comment on above: Performed By: #### T 4, CMP, TSH, LIPD, CBC #### [facility] [address], [place] [id number] MCH (RBC) [Entitic mass] 30.3 pg Normal 27.0-33.0 [facility] Comment on above: Performed By: #### T 4, CMP, TSH, LIPD, CBC #### [facility] [address], [place] [id number] MCHC (RBC) [Mass/Vol] 33.2 g/dL Normal 32.0-36.0 [facility] Comment on above: Performed By: #### T 4, CMP, TSH, LIPD, CBC #### [facility] [address], [place] [id number] MCV (RBC) [Entitic vol] 91 fL Normal 80-100 [facility] Comment on above: Performed By: #### T 4, CMP, TSH, LIPD, CBC #### [facility] [address], [place] [id number] Platelet mean volume (Bld) [Entitic vol] 11.30 fL Normal 7.50-12.50 [facility] Comment on above: Performed By: #### T 4, CMP, TSH, LIPD, CBC #### [facility] [address], [place] [id number] Platelets (Bld) [#/Vol] 283 10*3/uL Normal 140-400 [facility] Comment on above: Performed By: #### T 4, CMP, TSH, LIPD, CBC #### [facility] [address], [place] [id number] RBC (Bld) [#/Vol] 4.99 10*6/uL Normal 3.90-5.20 [facility] Comment on above: Performed By: #### T 4, CMP, TSH, LIPD, CBC #### [facility] [address], [place] [id number] RDW-SD 41.5 fL Normal 37.0-50.0 [facility] Comment on above: Performed By: #### T 4, CMP, TSH, LIPD, CBC #### [facility] [address], [place] [id number] WBC (Bld) [#/Vol] 6.1 10*3/uL Normal 3.8-11.0 [facility] Comment on above: Performed By: #### T 4, CMP, TSH, LIPD, CBC #### [facility] [address], [place] [id number] Comprehensive Metabolic Pane kamran 01-06-2022 Albumin [Mass/Vol] 5.3 g/dL High 3.6-5.1 [facility] Comment on above: Performed By: #### T 4, CMP, TSH, LIPD, CBC #### [facility] [address], [place] [id number] Albumin/Globulin [Mass ratio] 2.1 {ratio} Normal 1.0-2.5 [facility] Comment on above: Performed By: #### T 4, CMP, TSH, LIPD, CBC #### [facility] [address], [place] [id number] ALP [Catalytic activity/Vol] 36 U/L Normal 35-119 [facility] Comment on above: Performed By: #### T 4, CMP, TSH, LIPD, CBC #### [facility] [address], [place] [id number] ALT [Catalytic activity/Vol] 12 U/L Normal 6-33 [facility] Comment on above: Result Comment: 09/25 Female reference range changed. Performed By: #### T 4, CMP, TSH, LIPD, CBC #### [facility] [address], [place] [id number] Anion gap [Moles/Vol] 19 mmol/L Normal 12-20 [facility] Comment on above: Result Comment: Effe ctive 10/31/2019 reference range changed. Performed By: #### T 4, CMP, TSH, LIPD, CBC #### [facility] [address], [place] [id number] AST [Catalytic activity/Vol] 14 U/L Normal 9-34 [facility] Comment on above: Performed By: #### T 4, CMP, TSH, LIPD, CBC #### [facility] [address], [place] [id number] Bilirubin [Mass/Vol] 1.22 mg/dL High 0.30-1.20 [facility] Comment on above: Performed By: #### T 4, CMP, TSH, LIPD, CBC #### [facility] [address], [place] [id number] BUN/CREA 18 Ratio Normal 6-22 [facility] Comment on above: Performed By: #### T 4, CMP, TSH, LIPD, CBC #### [facility] [address], [place] [id number] Calcium [Mass/Vol] 9.9 mg/dL Normal 8.6-10.2 [facility] Comment on above: Performed By: #### T 4, CMP, TSH, LIPD, CBC #### [facility] [address], [place] [id number] Chloride [Moles/Vol] 104 mmol/L Normal 98-107 [facility] Comment on above: Performed By: #### T 4, CMP, TSH, LIPD, CBC #### [facility] [address], [place] [id number] CO2 [Moles/Vol] 23 mmol/L Normal 20-31 [facility] Comment on above: Performed By: #### T 4, CMP, TSH, LIPD, CBC #### [facility] [address], [place] [id number] Creatinine [Mass/Vol] 0.6 mg/dL Normal 0.6-1.4 [facility] Comment on above: Performed By: #### T 4, CMP, TSH, LIPD, CBC #### [facility] [address], [place] [id number] eGFRAA 163 mL/min/1.73m2 Normal >[address] [facility] Comment on above: Performed By: #### T 4, CMP, TSH, LIPD, CBC #### [facility] [address], [place] [id number] eGFRNAA 135 mL/min/1.73m2 Normal >[address] [facility] Comment on above: Performed By: #### T 4, CMP, TSH, LIPD, CBC #### [facility] [address], [place] [id number] Globulin (S) [Mass/Vol] 2.5 g/dL Normal 1.9-3.7 [facility] Comment on above: Performed By: #### T 4, CMP, TSH, LIPD, CBC #### [facility] [address], [place] [id number] Glucose [Mass/Vol] 89 mg/dL Normal 65-99 [facility] [employer] Comment on above: Result Comment: For FASTING Glucose --- ADA reference ranges: Normal 65-99 mg/dl Prediabetes 100-125 Diabetes >/= 126 Performed By: #### T 4, CMP, TSH, LIPD, CBC #### [facility] [address], [place] [id number] Potassium [Moles/Vol] 4.0 mmol/L Normal 3.5-5.5 [facility] [employer] Comment on above: Performed By: #### T 4, CMP, TSH, LIPD, CBC #### [facility] [address], [place] [id number] Protein [Mass/Vol] 7.8 g/dL Normal 6.1-8.1 [facility] [employer] Comment on above: Performed By: #### T 4, CMP, TSH, LIPD, CBC #### [facility] [address], [place] [id number] Sodium [Moles/Vol] 142 mmol/L Normal 135-146 [facility] [employer] Comment on above: Performed By: #### T 4, CMP, TSH, LIPD, CBC #### [facility] [address], [place] [id number] Urea nitrogen [Mass/Vol] 10 mg/dL Normal 7-25 [facility] [employer] Comment on above: Performed By: #### T 4, CMP, TSH, LIPD, CBC #### [facility] [address], [place] [id number] Lipid Panelon 01-06-2022 Cholesterol [Mass/Vol] 175 mg/dL Normal 125-200 [facility] [employer] Comment on above: Result Comment: Low risk < 200mg/dL Borderline risk 201-239 mg/dl High risk > or equal to 240 Performed By: #### T 4, CMP, TSH, LIPD, CBC #### [facility] [address], [place] [id number] Cholesterol in HDL [Mass/Vol] 90 mg/dL Normal >40 [facility] [employer] Comment on above: Result Comment: High Cardiovascular Risk HDL <40 mg/dL Low Cardiovascular Risk HDL > or equal to 60 mg/dl Performed By: #### T 4, CMP, TSH, LIPD, CBC #### [facility] [address], [place] [id number] Cholesterol in LDL [Mass/Vol] 75 mg/dL Normal [facility] Specialist Comment on above: Result Comment: LDL ATP III CLASSIFICATION LDL less than 100 mg/dl Optimal LDL 100-129 mg/dl Near or above optimal LDL 130-159 Borderline high LDL 160-189 High LDL greater than 189 mg/dl Very High Performed By: #### T 4, CMP, TSH, LIPD, CBC #### [facility] [address] [place], [place] [id number] Cholesterol in VLDL [Mass/Vol] 10 mg/dL Normal [facility] [employer] Salesperson Comment on above: Performed By: #### T 4, CMP, TSH, LIPD, CBC #### [facility] [address] [place], [place] [id number] Cholesterol.total/C holesterol in HDL [Mass ratio] 2 {ratio} Normal [facility] Specialist Comment on above: Performed By: #### T 4, CMP, TSH, LIPD, CBC #### [facility] [address], [place] [id number] Triglyceride [Mass/Vol] 51 mg/dL Normal 30-150 [facility] [employer] Salesperson Comment on above: Result Comment: TRIG ATPIII CLASSIFICATIONS TRIG less than 150 mg/dl Normal TRIG 150-199 mg/dl Borderline High TRIG 200-500 mg/dl High TRIG greather than 500 mg/dl Very High Performed By: #### T 4, CMP, TSH, LIPD, CBC #### [facility] [address], [place] [id number] Q - THYROID PEROXIDASE TPO A Bon 01-06-2022 THYROID PEROXIDASE ANTIBODIES <1 Normal <9 [facility] [employer] Salesperson Comment on above: Order Comment: [facility] performed at: [employer], [facility], [address] [place] [address], [address] [facility], [place], [address], Mold Polisher: Zander Doherty MD [facility] Date/Time: [facility] Results Received Date/Time: [facility] Reported Date/Time: Performed By: #### 3 4F, [id number] #### [facility] Default [address] [place] [address] Q - URINALYSIS,COMPLETEon Appearance (U) TURBID Abnormal CLEAR [facility] Specialist Comment on above: Order Comment: [facility] performed at: [facility], [facility], [address] [facility], [address] [place] [address], [address] [place] [address], Mold Polisher: Zander Doherty MD [facility] Date/Time: [facility] Results Received Date/Time: [facility] Reported Date/Time: Performed By: #### 3 4F, [id number] #### [facility] [address] [place] [address] BACTERIA NONE SEEN Normal NONE SEEN [facility] Specialist Comment on above: Order Comment: [facility] performed at: [facility], [facility], [address] [facility] , [address] [place] [address], [address] [place] [address], Mold Polisher: Zander Doherty MD [facility] Date/Time: [facility] Results Received Date/Time: [facility] Reported Date/Time: Performed By: #### 3 4F, [id number] #### [facility] [address] [place] [address] Bilirubin Ql (U) Negative Normal NEGATIVE [facility] Specialist Comment on above: Order Comment: [facility] performed at: [facility], [facility], [address] [facility] , [address] [place] [address], [address] [place] [address], Mold Polisher: Zander Doherty MD [facility] Date/Time: [facility] Results Received Date/Time: [facility] Reported Date/Time: Performed By: #### 3 4F, [id number] #### [facility] [address] [place] [address] CALCIUM OXALATE CRYSTALS MODERATE Abnormal NONE OR FEW [facility] Specialist Comment on above: Order Comment: [facility] performed at: [facility], [facility], [address] [facility] , [address] [place] [address], [address] [place] [address], Mold Polisher: Zander Doherty MD [facility] Date/Time: [facility] Results Received Date/Time: [facility] Reported Date/Time: Performed By: #### 3 4F, [id number] #### [facility] [address] [place] [address] Color (U) DARK YELLOW Normal YELLOW [facility] [employer] Salesperson Comment on above: Order Comment: [facility] performed at: [facility], [facility], [address] [facility] , [address] [place] [address], [address] [place] [address], Mold Polisher: Zander Doherty MD [facility] Date/Time: [facility] Results Received Date/Time: [facility] Reported Date/Time: Performed By: #### 3 4F, [id number] #### [facility] [address] [place] [address] Glucose Ql (U) Negative Normal NEGATIVE [facility] [employer] Salesperson Comment on above: Order Comment: [facility] performed at: [facility], [facility], [address] [facility] , [address] [place] [address], [address] [place] [address], Mold Polisher: Zander Doherty MD [facility] Date/Time: [facility] Results Received Date/Time: [facility] Reported Date/Time: Performed By: #### 3 4F, [id number] #### [facility] [address] [place] [address] HYALINE CAST NONE SEEN Normal NONE SEEN [facility] [employer] 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 Comment on above: Order Comment: [facility] performed at: [employer] [facility], [address] [facility] , [address] [place] [address], [address] [place] [address], Mold Polisher: Zander Doherty MD [facility] Date/Time: [facility] Results Received Date/Time: [facility] Reported Date/Time: Performed By: #### 3 4F, [id number] #### [facility] [address] [place] [address] Ketones Ql (U) TRACE Abnormal NEGATIVE [facility] [employer] Salesperson Comment on above: Order Comment: [facility] performed at: [facility], [facility], [address] [facility] , [address] [place] [address], [address] [place] [address], Mold Polisher: Zander Doherty MD [facility] Date/Time: [facility] Results Received Date/Time: [facility] Reported Date/Time: Performed By: #### 3 4F, [id number] #### [facility] [address] [place] [address] Leukocyte esterase Test strip Ql (U) Negative Normal NEGATIVE [facility] [employer] Salesperson Comment on above: Order Comment: [facility] performed at: [facility], [facility], [address] [facility] , [address] [place] [address], [address] [place] [address], Mold Polisher: Zander Doherty MD [facility] Date/Time: [facility] Results Received Date/Time: [facility] Reported Date/Time: Performed By: #### 3 4F, [id number] #### [facility] [address] [place] [address] Nitrite Ql (U) Negative Normal NEGATIVE [facility] [employer] Salesperson Comment on above: Order Comment: [facility] performed at: [facility], [facility], [address] [facility] , [address] [place] [address], [address] [place] [address], Mold Polisher: Zander Doherty MD [facility] Date/Time: [facility] Results Received Date/Time: [facility] Reported Date/Time: Performed By: #### 3 4F, [id number] #### [facility] [address] [place] [address] OCCULT BLOOD Negative Normal NEGATIVE [facility] [employer] Salesperson Comment on above: Order Comment: [facility] performed at: [facility], [facility], [address] [facility], [address] [place] [address], [address] [place] [address], Mold Polisher: Zadner Doherty MD [facility] Date/Time: [facility] Results Received Date/Time: [facility] Reported Date/Time: Performed By: #### 3 4F, [id number] #### [facility] [address] [place] [address] pH (U) 5.5 [pH] Normal 5.0-8.0 [facility] [employer] Salesperson Comment on above: Order Comment: [facility] performed at: [employer], [facility], [address] [facility], [address] [place] [address], [address] [place] [address], Mold Polisher: Zander Doherty MD [facility] Date/Time: [facility] Results Received Date/Time: [facility] Reported Date/Time: Performed By: #### 3 4F, [id number] #### [facility] [address] [place] [address] Protein Ql (U) TRACE Abnormal NEGATIVE [facility] Specialist Comment on above: Order Comment: [facility] performed at: [employer], [facility], [address] [place] [address], [address] [place] [address], [address] [place] [address], Mold Polisher: Zander Doherty MD [facility] Date/Time: [facility] Results Received Date/Time: [facility] Reported Date/Time: Performed By: #### 3 4F, [id number] #### [facility] [address] [place] [address] RBC NONE SEEN Normal < OR = 2 [facility] [employer] Salesperson Comment on above: Order Comment: [facility] performed at: [facility], [facility], [address] [facility], [address] [place] [address], [address] [place] [address], Mold Polisher: Zander Doherty MD [facility] Date/Time: [facility] Results Received Date/Time: [facility] Reported Date/Time: Performed By: #### 3 4F, [id number] #### [facility] [address] [place] [address] Specific gravity (U) [Rel density] 1.034 Normal 1.001-1.035 [facility] [employer] Salesperson Comment on above: Order Comment: [facility] performed at: Q, [facility], [address] [facility], [address] [place] [address], [address] [place] [address], Mold Polisher: Zander Doherty MD [facility] Date/Time: [facility] Results Received Date/Time: [facility] Reported Date/Time: Performed By: #### 3 4F, [id number] #### [facility] [address] [place] [address] SQUAMOUS EPITHELIAL CELLS 0-5 Normal < OR = 5 [facility] Specialist Comment on above: Order Comment: [facility] performed at: [facility], [facility], [address] [place] [address], [address] [place] [address], [address] [place] [address], Mold Polisher: Zander Doherty MD [facility] Date/Time: [facility] Results Received Date/Time: [facility] Reported Date/Time: Performed By: #### 3 4F, [id number] #### [facility] [address] [place] [address] WBC NONE SEEN Normal < OR = 5 [facility] Specialist Comment on above: Order Comment: [facility] performed at: [facility], [facility], [address] [place] [address], [address] [place] [address], [address] [place] [address], Mold Polisher: Zander Doherty MD [facility] Date/Time: [facility] Results Received Date/Time: [facility] Reported Date/Time: Performed By: #### 3 4F, [id number] #### [facility] [address] [place] [address] TSHon 01-06-2022 TSH 0.208 uIU/mL Low 0.400-4.500 [facility] [employer] Salesperson Comment on above: Performed By: #### T 4, CMP, TSH, LIPD, CBC #### [facility] [address] [place], [place] [id number] Total T4on 01-06-2022 T4 [Mass/Vol] 7.9 ug/dL Normal 4.5-11.7 [facility] [employer] Salesperson Comment on above: Performed By: #### T 4, CMP, TSH, LIPD, CBC #### [facility] [address] [place], [place] [id number] US Thyroidon 01-06-2022 US Thyroid FINDINGS: Right [...] by Dimas Valentino on 01/07/2022 1021 Normal [facility] [employer] Salesperson Vital Signs Date Time Vital Sign Value Performing Clinician Jada hill 09-15-2024 08:47-0500 Body mass index (BMI) [Ratio] 32.2 kg/m2 Mary Jo NUÑEZ Work Phone: [facility] 09-15-2024 08:47-0500 Body weight 87.09 kg Mary Jo Canby PA Work Phone: [facility] 09-15-2024 08:47-0500 Diastolic blood pressure 74 mm[Hg] Mary Jo Nicolas PA Work Phone: [facility] 09-15-2024 08:47-0500 Systolic blood pressure 118 mm[Hg] Mary Jo Nicolas PA Work Phone: [facility] 09-01-2024 09:02-0500 Body mass index (BMI) [Ratio] 31.36 kg/m2 Mary Jo Canby PA Work Phone: [facility] 09-01-2024 09:02-0500 Body weight 84.82 kg Mary Jo Nicolas PA Work Phone: [facility] 09-01-2024 09:02-0500 Diastolic blood pressure 70 mm[Hg] Mary Jo Canby PA Work Phone: [facility] 09-01-2024 09:02-0500 Systolic blood pressure 114 mm[Hg] Mary Jo Nicolas PA Work Phone: [facility] 08-18-2024 08:43-0400 Body mass index (BMI) [Ratio] 30.71 kg/m2 Brandon Rosa DO Work Phone: [facility] 08-18-2024 08:43-0400 Body weight 83.06 kg Brandon Rosa DO Work Phone: [facility] 08-18-2024 08:43-0400 Diastolic blood pressure 68 mm[Hg] Brandon Rosa DO Work Phone: [facility] 08-18-2024 08:43-0400 Systolic blood pressure 110 mm[Hg] Brandon Rosa DO Work Phone: [facility] 08-02-2024 08:46-0400 Body mass index (BMI) [Ratio] 30.49 kg/m2 Mary Jo Canby PA Work Phone: [facility] 08-02-2024 08:46-0400 Body weight 82.46 kg Mary Jo Nicolas PA Work Phone: [facility] 08-02-2024 08:46-0400 Diastolic blood pressure 70 mm[Hg] Mary Jo NUÑEZ Work Phone: [facility] 08-02-2024 08:46-0400 Systolic blood pressure 100 mm[Hg] Mary Jo NUÑEZ Work Phone: [facility] Healthcare Encounters Encounter Date Encounter Type Care Provider Facility Start: 09-15-2024 End: 09-15-2024 Bamboo flowsheet Mary Jo Brink PA Work Phone: [facility] Start: 09-15-2024 End: 09-15-2024 Bamboo flowsheet Mary Jo Brink PA Work Phone: [facility] Start: 09-15-2024 End: 09-15-2024 flow sheet Mary Jo NUÑEZ Work Phone: [facility] Comment on above: Third trimester preg jefe; 34 weeks gestation of ; Excessive growth affecting management of in third trimester, single or unspecified fetus Start: 09-15-2024 End: 09-15-2024 ambulatory MARY JO BRINK Not Available Start: 09-01-2024 End: 09-01-2024 Bamboo flowsheet Mray Jo NUÑEZ Work Phone: [facility] Start: 09-01-2024 End: 09-01-2024 Bamboo flowsheet Mary Jo Brink PA Work Phone: [facility] Start: 09-01-2024 End: 09-01-2024 flow sheet Mary Jo Brink PA Work Phone: [facility] Comment on above: Third trimester preg jefe; 32 weeks gestation of Start: 09-01-2024 End: 09-01-2024 ambulatory MARY JO BRINK Not Available Start: 08-18-2024 End: 08-18-2024 Bamboo flowsheet Brandon Rosa DO Work Phone: [facility] Start: 08-18-2024 End: 08-18-2024 Bamboo flowsheet Brandon Rosa DO Work Phone: [facility] Start: 08-18-2024 End: 08-18-2024 ambulatory BRANDON ROSA Not Available Start: 08-18-2024 End: 08-18-2024 flow sheet Brandon Rosa DO Work Phone: [facility] Comment on above: Third trimester preg jfee; 30 weeks gestation of Start: 08-02-2024 End: 08-02-2024 Bamboo flowsheet Mary Jo NUÑEZ Work Phone: [facility] Start: 08-02-2024 End: 08-02-2024 Bamboo flowsheet Mary Jo NUÑEZ Work Phone: [facility] Start: 08-02-2024 End: 08-02-2024 ambulatory MARY JO BRINK Not Available Start: 08-02-2024 End: 08-02-2024 Office outpatient visit 15 minutes Mary Jo NUÑEZ Work Phone: [facility] Comment on above: 27 [...] Start: 10-07-2022 End: 10-10-2022 ambulatory ISAIAH BANERJEE [facility] Start: 08-22-2022 ambulatory RENETTA COLLAZO [facility] Start: 08-20-2022 End: 08-21-2022 ambulatory BILL WORRELL [facility] Start: 03-15-2022 End: 03-15-[address] SARITHA [...] AM EST Routine [facility] [address] [place] [place] [id number] Brandon Lee, DO [address] [place] [address] [facility] Start: 09-29-2024 End: 09-29-2024 Professional / ancillary services management 09/29/2024 8:00 AM EST Ancillary Procedure [facility] [address] [place] [id number] [facility] Start: 09-15-2024 End: 09-15-2025 [...] Routine [facility] [address] [place] [address] Brandon Lee, DO [address] [place], [place] [id number] [facility] Start: 08-18-2024 End: 08-18-2024 Professional / ancillary services management 08/18/2024 8:00 AM EDT Ancillary Procedure [facility] [address] [place] [address] [facility] Start: 08-02-2024 End: [...] Healthcare Payers Date Payer Category Payer Medicaid [id number] 2024 Private Health Insurance [employer] [id number] [employer] [id number] 2024-Present [phone] [address] [place] [address] [id number] 2024 Unknown [id number] 1996 Unknown [id number] 2.16.840.1.466120.3.579.2. 593 1996 Unknown [id number] 2.16.840.1.904160.3.579.2. 593 1996 Unknown [id number] 2.16.840.1.236307.3.579.2. 1259 1996 Unknown [id number] 2.16.840.1.676995.3.579.2. 1259 1996 Unknown [id number] 2.16.840.1.910162.3.579.2. 1259 1996 Unknown [id number] 2.16.840.1.838970.3.579.2. 1259 1996 Unknown [id number] 2.16.840.1.366386.3.579.2. 1259 1996 Unknown [id number] 2.16.840.1.676296.3.579.2. 1259 1996 Unknown [id number] 2.16.840.1.691175.3.579.2. 1259 1996 Unknown [id number] 2.16.840.1.224173.3.579.2. 1259 1996 Unknown [id number] 2.16.840.1.836562.3.579.2. 1259 1959 Medicaid [id number] 1958 Unknown [id number] Social History Date Type Detail Facility Start: 05-16-2024 [facility] Start: 05-16-2024 [...] 2 puffs, Inhalation, Every 6 hours PRN Mhmlujhn-Kis-Fv-FA ( 1 + IRON PO) ALLERGIES No [...] of: JOAQUIN Barrera documented in this encounter [facility] 09-01-2024 History of Present illness Narrative Reason for Appointment: Patient ID: Chani Stone is a 29 y.o. female who presents for Routine Visit Patient presents today for Return OB appointment. MEDICATIONS Current Outpatient Medications Medication Instructions albuterol HFA 90 mcg/act inhaler 2 puffs, Inhalation, Every 6 hours PRN Inglxbal-Nyh-Hx-FA ( 1 + IRON PO) ALLERGIES No [...] of: JOAQUIN Barrera documented in this encounter [facility] 08-18-2024 History of Present illness Narrative Reason for Appointment: Patient ID: Chani Stone is a 29 y.o. female who presents for Routine Visit Patient presents today for Return OB appointment. MEDICATIONS Current Outpatient Medications Medication Instructions albuterol HFA 90 mcg/act inhaler 2 puffs, Inhalation, Every 6 hours PRN Lsefmsul-Qvq-Yu-FA ( 1 + IRON PO) ALLERGIES No [...] nursing note reviewed. Exam conducted with a home service director present. Vitals: Estimated body mass index is [...] Brandon Lee DO documented in this encounter [facility] 08-02-2024 History of Present illness Narrative Reason for Appointment: Patient ID: Chani Stone is a 29 y.o. female who presents for Routine Visit Patient presents today for Return OB appointment. MEDICATIONS Current Outpatient Medications Medication Instructions albuterol HFA 90 mcg/act inhaler 2 puffs, Inhalation, Every 6 hours PRN Vrlepzsm-Bvc-Qy-FA ( 1 + IRON PO) ALLERGIES No [...] nursing note reviewed. Exam conducted with a home service director present. 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 Patient History Past [...] PT/chiropractic therapy Start Neurontin F/U 3 months [facility] 08-22-2022 Note Sports Medicine Subj ective Pain [...] All questions answered in the office. 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 Patient History No [...] be an additional personal documentation from me. [facility] 05-16-2022 Note HISTORY: Left sided pain and tingling PROCEDURE: Beamr Signa HDXT 1.5. Sagittal T1, T2, STIR [...] signed by Dimas Valentino on 05/19/2022 1134 [facility] [employer] Salesperson Evaluation note Diagnosis 27 weeks gestation of [...] section and content) DATE CREATED AUTHOR 05/19/2022 [facility] dical Specialist DATE CREATED AUTHOR AUTHOR'S ORGANIZ ATION 11/18/2022 [facility] DATE CREATED AUTHOR AUTHOR'S ORGANIZ ATION 02/07/2023 [facility] DATE CREATED AUTHOR AUTHOR'S ORGANIZ ATION 09/18/2024 [facility] dical Specialists EPIC Care Teams (unrecognized sec tion and content) Yeast Culture Developer Relationship Specialty Start Date End Date Saritha Wiley MD [address] [place] [address] PCP - General Family Medicine 03/03/23 Joi Bravo MD PCP - [facility] 04/25/24 Yeast Culture Developer Relationship Specialty Start Date End Date Saritha Wiley MD [address] [place] [address] PCP - General Family Medicine 03/03/23 Joi Bravo MD PCP - [facility] 04/25/24 Yeast Culture Developer Relationship Specialty Start Date End Date Saritha Wiley MD [address] [place] [address] PCP - General Family Medicine 03/03/23 Joi Bravo MD PCP - [facility] 04/25/24 Yeast Culture Developer Relationship Specialty Start Date End Date Saritha Wiley MD [address] [place] [address] PCP - General Family Medicine 03/03/23 Joi Bravo MD PCP - [facility] 04/25/24 Yeast Culture Developer Relationship Specialty Start Date End Date Saritha Wiley MD [address] [place] [address] PCP - General Family Medicine 03/03/23 Yeast Culture Developer Relationship Specialty Start Date End Date Saritha Wiley MD [address] [place] [place] [address] PCP - General Family Medicine 03/03/23 Yeast Culture Developer Relationship Specialty Start Date End Date Saritha Wiley MD [address] [place] [address] PCP - General Family Medicine 03/03/23 Reason [...] BE BASED ON THE PRIMARY CLINICAL RECORDS. [facility] [employer] provides no warranty or guarantee of the accuracy or completeness of information in this document.
== END 2024-09-29 20:57 | disposition home or self-care (01) ==
LOC: LAB 20:56
PROVIDERS: PCP Family Medicine; Visit Provider Obstetrics & Gynecology
DX: Z34.93 Encounter for supervision of normal pregnancy, unspecified, third trimester (principal)
CPT/HCPCS: 87081; 87150

== ENCOUNTER 2024-10-20 09:57 | Inpatient (IN) | payer BC, MEDICAID, SELFPAY ==
[2024-10-20] VITALS (32 sets, daily range): BP systolic 79–142; BP diastolic 37–91; PULSE 57–82; TEMP 36.3–37.2; O2SAT 94–98
--- OUTSIDE RECORDS SUMMARY | 2024-10-20 05:25 | XMS_ITS | CCD ---
Author Organization [facility] Care Team Providers Care Case Management Specialist Name Role Phone DR SARITHA WILEY Primary Care Unavailable NATALIIA INIGUEZ Admitting Unavailable NATALIIA INIGUEZ Consulting Unavailable NATALIIA INIGUEZ Attending Unavailable KRISTEN, DR BEEBE Attending Unavailable DR SARITHA WILEY Primary Care Unavailable KIRSTEN, DR BEEBE Admitting Unavailable KRISTEN, DR BEEBE Consulting Unavailable LEVON, BILL Referring Unavailable RENETTA COLLAZO Attending Unavailable BILL WORRELL Attending Unavailable ISAIAH BANERJEE Attending Unavailable Saritha Wiley MD Primary Care Provider Joi Bravo MD Unavailable Saritha Wiley MD Primary Care Provider BRANDON LEE Attending Unavailable KEENA, MARY JO Attending Unavailable BRANDON LEE Attending Unavailable ROSA, BRANDON Attending Unavailable KEENA, MARY JO Attending Unavailable BRANDON LEE Attending Unavailable MARY JO BRINK Attending Unavailable KEENA, MARY JO Attending Unavailable ROSA, BRANDON Attending Unavailable MARY JO BRINK Attending Unavailable KEENA, MARY JO Attending Unavailable Medications Current Medications Medication Drug Class(es) Dates Sig (Normalized) Sig (Original) [id number] 200 actuat albuterol 0.09 mg/actuat metered dose inhaler (20 sources) beta2-Adrenergic Agonist take 2 puff(s) by inhalation every six hours albuterol HFA 90 mcg/act inhaler Inhale 2 puffs every 6 (six) hours if needed Active aspirin 81 mg delayed release oral tablet (5 sources) Platelet Aggregation Inhibitor, Nonsteroidal Anti-inflammatory Drug take 1 tablet by mouth once daily aspirin 81 MG EC tablet Take 81 mg by mouth Daily Active azithromycin 250 mg oral tablet (5 sources) Macrolide Antimicrobial Start: 10-06-2024 End: 10-13-2024 azithromycin (Zithromax Z-Edmond) 250 MG tablet Indications: Upper respiratory tract infection, unspecified type As directed 6 tablet 10/06/2024 10/13/2024 Discontinued Vrovvjdw-Ewd-Tb-FA ( 1 + IRON PO) (20 sources) Umyaacrn-Pgb-Fn-FA ( 1 + IRON PO) Active Problems [...] 09-15-2024 Episodic Other and delivery including normal (20 sources) Second trimester ; Translations: [Encounter for supervision of normal , unspecified, second trimester] Onset: 08-18-2024 08-02-2024 Episodic Other screening for suspected conditions (not mental disorders or infectious disease) (4 sources) Encounter for screening for malignant neoplasm of cervix; Translations: [ENC SCREENING MALIG NEOPLASM CERV] Onset: 11-07-2022 Episodic Other upper respiratory infections (7 sources) Upper respiratory infection; Translations: [Acute upper respiratory infection, unspecified] Onset: 10-06-2024 10-06-2024 Episodic Residual codes; unclassified (2 sources) Gestation period, 27 weeks; Translations: [27 weeks gestation of ] 08-02-2024 Episodic Residual codes; unclassified (18 sources) Gestation period, 30 weeks; Translations: [30 weeks gestation of ] Onset: 08-18-2024 08-18-2024 Episodic Residual codes; unclassified (2 sources) Gestation period, 32 weeks; Translations: [32 weeks gestation of ] 09-01-2024 Episodic Residual codes; unclassified (2 sources) Gestation period, 34 weeks; Translations: [34 weeks gestation of ] 09-15-2024 Episodic Residual codes; unclassified (2 sources) Gestation period, 36 weeks; Translations: [36 weeks gestation of ] 09-29-2024 Episodic Residual codes; unclassified (2 sources) Gestation period, 37 weeks; Translations: [37 weeks gestation of ] 10-06-2024 Episodic Residual codes; unclassified (2 sources) Gestation period, 38 weeks; Translations: [38 weeks gestation of ] 10-13-2024 Episodic Unclassified (1 source) Low back pain, [...] Range Facility Urinalysis macro (dipstick) panel (U)on 10-13-2024 Bilirubin, UA Negative Negative - 4(70) +++ mg/dL [facility] Blood, UA Negative Negative - 50 Karl/mcL [facility] Clarity, UA Clear [facility] re Color, UA Yellow [facility] Glucose, UA Negative Negative - 1999(110) ++++ mg/dL [facility] Interpretation and review of laboratory results Abnormal [facility] re Ketones, UA Negative Negative - 160(16) ++++ mg/dL [facility] Leukocytes, UA Positive Negative - 500+++ Serene/mcL [facility] Comment on above: trace Nitrite, UA Negative Negative - Positive [facility] pH, UA 6 5 - 9 [facility] e Protein, UA Negative Negative - 1999(20) ++++ mg/dL [facility] Spec Grav, UA 1.025 1 - 1.03 [facility] Urobilinogen, UA 1.0 0.2 - 12 mg/dL [facility] Urinalysis macro (dipstick) panel (U)on 10-06-2024 Bilirubin, UA Negative Negative - 4(70) +++ mg/dL [facility] Blood, UA Negative Negative - 50 Karl/mcL [facility] Clarity, UA Clear [facility] re Color, UA Yellow [facility] Glucose, UA Negative Negative - 1999(110) ++++ mg/dL [facility] Interpretation and review of laboratory results Normal [facility] re Ketones, UA Negative Negative - 160(16) ++++ mg/dL [facility] Healthcare Leukocytes, UA Negative Negative - 500+++ Serene/mcL [facility] Healthcare Nitrite, UA Negative Negative - Positive [facility] pH, UA 7 5 - 9 [facility] Protein, UA Negative Negative - 1999(20) ++++ mg/dL [facility] Spec Grav, UA 1.02 1 - 1.03 [facility] Urobilinogen, UA 0.2 0.2 - 12 mg/dL [facility] macro (dipstick) panel (U)on 09-29-2024 Bilirubin, UA Negative Negative - 4(70) +++ mg/dL [facility] Blood, UA Negative Negative - 50 Karl/mcL [facility] Clarity, UA Clear [facility] re Color, UA Yellow [facility] Glucose, UA Negative Negative - 1999(110) ++++ mg/dL [facility] Interpretation and review of laboratory results Abnormal [facility] re Ketones, UA Negative Negative - 160(16) ++++ mg/dL [facility] Leukocytes, UA Trace Negative - 500+++ Serene/mcL [facility] Healthcare Nitrite, UA Negative Negative - Positive [facility] pH, UA 7 5 - 9 [facility] Protein, UA Negative Negative - 1999(20) ++++ mg/dL [facility] Healthcare Spec Grav, UA 1.015 1 - 1.03 [facility] Health care Urobilinogen, UA 0.2 0.2 - 12 mg/dL [facility] Healthcare [facility] Urinalysis macro (dipstick) panel (U)on 09-15-2024 Bilirubin, UA Negative Negative - 4(70) +++ mg/dL [facility] Blood, UA Negative Negative - 50 Karl/mcL [facility] Clarity, UA Clear [facility] re Color, UA Yellow [facility] Glucose, UA Negative Negative - 1999(110) ++++ mg/dL [facility] Interpretation and review of laboratory results Normal [facility] re Ketones, UA Negative Negative - 160(16) ++++ mg/dL [facility] Leukocytes, UA Negative Negative - 500+++ Serene/mcL [facility] Healthcare Nitrite, UA Negative Negative - Positive [facility] pH, UA 6.5 5 - 9 [facility] Protein, UA Negative Negative - 1999(20) ++++ mg/dL [facility] Spec Grav, UA 1.025 1 - 1.03 [facility] Urobilinogen, UA 0.2 0.2 - 12 mg/dL [facility]ysis macro (dipstick) panel (U)on 09-01-2024 Bilirubin, UA Negative Negative - 4(70) +++ mg/dL [facility] Blood, UA Negative Negative - 50 Karl/mcL [facility] Healthcare Clarity, UA Clear [facility] re Color, UA Yellow [facility] Glucose, UA Negative Negative - 1999(110) ++++ mg/dL [facility] Interpretation and review of laboratory results Normal [facility] re Ketones, UA Negative Negative - 160(16) ++++ mg/dL [facility] Leukocytes, UA Negative Negative - 500+++ Serene/mcL [facility] Nitrite, UA Negative Negative - Positive [facility] pH, UA 6.5 5 - 9 [facility] Protein, UA Negative Negative - 1999(20) ++++ mg/dL [facility] Spec Grav, UA 1.01 1 - 1.03 [facility] Urobilinogen, UA 0.2 0.2 - 12 mg/dL [facility] Urinalysis macro (dipstick) panel (U)on 08-18-2024 Bilirubin, UA Negative Negative - 4(70) +++ mg/dL [facility] Blood, UA Negative Negative - 50 Karl/mcL [facility] Healthcare Clarity, UA Clear [facility] re Color, UA Yellow [facility] Glucose, UA Negative Negative - 1999(110) ++++ mg/dL [facility] Interpretation and review of laboratory results Normal [facility] re Ketones, UA Negative Negative - 160(16) ++++ mg/dL [facility] Leukocytes, UA Negative Negative - 500+++ Serene/mcL [facility] Nitrite, UA Negative Negative - Positive [facility] pH, UA 5.5 5 - 9 [facility] Protein, UA Negative Negative - 1999(20) ++++ mg/dL [facility] Spec Grav, UA 1.025 1 - 1.03 [facility] Urobilinogen, UA 1.0 0.2 - 12 mg/dL [facility] Urinalysis macro (dipstick) panel (U)on 08-02-2024 Bilirubin, UA Negative Negative - 4(70) +++ mg/dL [facility] Blood, UA Negative Negative - 50 Karl/mcL [facility] Clarity, UA Clear [facility] re Color, UA Yellow [facility] Glucose, UA Negative Negative - 1999(110) ++++ mg/dL [facility] Interpretation and review of laboratory results Normal [facility] Ketones, UA Negative Negative - 160(16) ++++ mg/dL [facility] Leukocytes, UA Negative Negative - 500+++ Serene/mcL [facility] Nitrite, UA Negative Negative - Positive [facility] pH, UA 6.5 5 - 9 [facility] Protein, UA Negative Negative - 1999(20) ++++ mg/dL [facility] Spec Grav, UA 1.025 1 - 1.03 [facility] Urobilinogen, UA 0.2 0.2 - 12 mg/dL [facility] ALL CBC WITH AUTO DIFFon BASOPHILS ABSOLUTE AUTO 0.0 [facility] Basophils/100 WBC (Bld) 0.2 % 0.2 - 2.0 % [facility] Eosinophils/100 WBC (Bld) 0.8 % Low 0.9 - 7.0 % [facility] Erythrocyte distribution width (RBC) [Ratio] 13.0 % 11.0 - 15.0 % [facility] Hematocrit (Bld) [Volume fraction] 35.0 % Low 36.0 - 48.0 % [facility] Hemoglobin (Bld) [Mass/Vol] 12.1 g/dL 12.0 - 16.0 g/dL [facility] IMMATURE GRANULOCYTES ABS AUTO 0.03 [facility] Immature granulocytes/100 WBC (Bld) 0.3 % 0.0 - 0.5 % [facility] Interpretation and review of laboratory results Abnormal [facility] re LYMPHOCYTES ABSOLUTE AUTO 1.0 Low [facility] Lymphocytes/100 WBC (Bld) 11.4 % Low 20.5 - 60.0 % [facility] MCH (RBC) [Entitic mass] 31.4 pg 26.7 - 34.0 pg [facility] MCHC (RBC) [Mass/Vol] 34.6 g/dL 29.9 - 35.2 g/dL [facility] MCV (RBC) [Entitic vol] 90.9 fL 81.0 - 99.0 fL [facility] MONOCYTES ABSOLUTE AUTO 0.5 [facility] Monocytes/100 WBC (Bld) 5.3 % 1.7 - 12.0 % [facility] NEUTROPHILS ABSOLUTE AUTO 7.3 High [facility] Neutrophils/100 WBC (Bld) 82.0 % High 43.0 - 75.0 % [facility] Platelet mean volume (Bld) [Entitic vol] 10.2 fL 9.5 - 13.5 fL [facility] TBH EO # 0.1 [facility] PLT 202 [facility] TB RBC 3.85 Low [facility] TBH WBC 8.9 [facility] Urinalysis macro (dipstick) panel (U)on 07-12-2024 Bilirubin, UA Negative Negative - 4(70) +++ mg/dL [facility] Blood, UA Negative Negative - 50 Karl/mcL [facility] Clarity, UA Clear [facility] re Color, UA Yellow [facility] e Glucose, UA Negative Negative - 1999(110) ++++ mg/dL [facility] Interpretation and review of laboratory results Normal [facility] re Ketones, UA Negative Negative - 160(16) ++++ mg/dL [facility] Leukocytes, UA Negative Negative - 500+++ Serene/mcL [facility] Nitrite, UA Negative Negative - Positive [facility] pH, UA 6.0 5 - 9 [facility] e Protein, UA Negative Negative - 1999(20) ++++ mg/dL [facility] Spec Grav, UA 1.010 1 - 1.03 [facility] Urobilinogen, UA 0.2 0.2 - 12 mg/dL [facility] Refillon 12-02-2022 Refill [id number] Joan Stone 1995 F Date Provider Department Center 12/02/2022 ISAIAH SALAZAR MP [facility] Family History Family Status - Relation Status Age at Mother Alive Father Alive Reason for Visit and Comments: Med Refill [[id number]] Normal [facility] PAP ACOG PANEL 2: 21 to 29on 11-12-2022 . . Normal [facility] Comment on above: Performed By: #### [id number] #### [facility] [address] [address] [address] Asher Renee Age Gdln ACOG Testing 21-29 [facility] Comment on above: Performed By: #### [id number] #### [facility] [address] [place] [address] Dr. Asher Renee DIAGNOSIS: Comment [facility] Comment on above: Result Comment: NEGA TIVE FOR INTRAEPITHELIAL LESION OR MALIGNANCY. Performed By: #### [id number] #### [facility] [address] [place] [address] Dr. Asher Renee Methodology: Comment [facility] Comment on above: Result Comment: This liquid based ThinPrep(R) pap test was screened with the use of an image guided system. Performed By: #### [id number] #### [facility] [address] [place] [address] Dr. Asher Renee Note: Comment [facility] Comment on above: Result Comment: The Pap smear is a screening test designed to aid in the detection of premalignant and malignant conditions of the uterine cervix. It is not a diagnostic procedure and should not be used as the sole means of detecting cervical cancer. Both false-positive and false-negative reports do occur. . Performed By: #### [id number] #### [facility] [address] [place] [address] Dr. Asher Renee Performed by: Comment [facility] Comment on above: Result Comment: Josephine Santiago, Conference Services Manager (ASCP) Performed By: #### [id number] #### [facility] [address] [place] [address] Dr. Asher Renee Reflex Criteria: Comment Normal [facility] Comment on above: Result Comment: The HPV DNA reflex criteria were not met with this specimen result therefore, no HPV testing was performed. . Performed By: #### [id number] #### [facility] [address] [address] [address] Asher Renee Specimen adequacy: Comment Normal [facility] Comment on above: Result Comment: Sati sfactory for evaluation. No endocervical component is identified. Performed By: #### [id number] #### [facility] [address] [address] [address] Asher Renee 36on 10-28-2022 36 Approving, but needs appt for additional refills. Normal [facility] Follow-Upon 10-07-2022 Follow-Up [id number] Joan Stone 1995 F Date Provider Department Center 10/07/2022 490-ISAIAH BANERJEE MP Family History Family Status - Relation Status Age at Mother Alive Father Alive Level of Service:26237 CO OFFICE/OUTPATIENT ESTABLISHED LOW MDM 20-29 MIN Reason for Visit and Comments: Follow-up [[id number]] - Pt here for low back pain [facility] 36on 09-22-2022 37 Approving, but needs appt for additional refills. Normal [facility] Procedure Visiton 08-22-2022 Procedure Visit [id number] Joan Stone 1995 F Date Provider Department Center 08/22/2022 RENETTA CHÁVEZ MP Family History Family Status - Relation Status Age at Mother Alive Father Alive Level of Service:38742 CO OFFICE/OUTPATIENT NEW LOW MDM 30-44 MINUTES (25) Reason for Visit and Comments: Pain [136] - Left SI joint CSI USG Normal [facility] Office Visiton 08-20-2022 Follow-up visit [id number] Joan Stone 1995 F Date Provider Department Center 08/20/2022 260-BILL WORRELL MP Chart Close Cosign Required by: Bill Worrell MD[[id number]] No family history on file Level of Service:66247 CO OFFICE/OUTPATIENT NEW LOW MDM 30-44 MINUTES (GC) Normal [facility] US OB 1ST Trimesteron 2021 OB [...] by Ruy Luo on 03/17/2022 1627 Normal [facility] Child Welfare Manager CBC AUTO DIFFon 03-15-2022 BASO # 0.0 103/ul Normal 0.0-0.1 [facility] Comment on above: Performed By: #### C BC #### [facility] [address] [address] [address] Asher Renee Basophils/100 WBC (Bld) 0.5 % Normal 0.2-2.0 [facility] Comment on above: Performed By: #### C BC #### [facility] [address] [address] [address] Asher Renee EO # 0.1 103/ul Normal 0.0-0.7 [facility] Comment on above: Performed By: #### C BC #### [facility] [address] [address] [address] Asher Renee Eosinophils/100 WBC (Bld) 1.1 % Normal 0.9-7.0 [facility] Comment on above: Performed By: #### C BC #### [facility] [address] [place] [address] Dr. Asher Renee Erythrocyte distribution width (RBC) [Ratio] 12.5 % Normal 11.0-15.0 [facility] Comment on above: Performed By: #### C BC #### [facility] [address] [place] [address] Dr. Asher Renee Hematocrit (Bld) [Volume fraction] 38.8 % Normal 36.0-48.0 [facility] Comment on above: Performed By: #### C BC #### [facility] [address] [place] [address] Dr. Asher Renee Hemoglobin (Bld) [Mass/Vol] 12.8 g/dL Normal 12.0-16.0 [facility] Comment on above: Performed By: #### C BC #### [facility] [address] [place] [address] Dr. Asher Renee IG # 0.02 10e3/ul Normal 0.00-0.03 [facility] Comment on above: Performed By: #### C BC #### [facility] [address] [place] [address] Dr. Asher Renee IG % 0.3 % Normal 0.0-0.5 [facility] Comment on above: Performed By: #### C BC #### [facility] [address] [place] [address] Dr. Asher Renee LYMPH # 1.7 103/ul Normal 1.2-3.8 [facility] Comment on above: Performed By: #### C BC #### [facility] [address] [place] [address] Dr. Asher Renee Lymphocytes/100 WBC (Bld) 26.2 % Normal 20.5-60.0 [facility] Comment on above: Performed By: #### C BC #### [facility] [address] [place] [address] Dr. Asher Renee MANUAL DIFF REQ NO Normal [facility] Comment on above: Performed By: #### C BC #### [facility] [address] [place] [address] Dr. Asher Renee MCH (RBC) [Entitic mass] 30.5 pg Normal 26.7-34.0 [facility] Comment on above: Performed By: #### C BC #### [facility] [address] [place] [address] Dr. Asher Renee MCHC (RBC) [Mass/Vol] 33.0 g/dL Normal 29.9-35.2 [facility] Comment on above: Performed By: #### C BC #### [facility] [address] [place] [address] Dr. Asher Renee MCV (RBC) [Entitic vol] 92.4 fL Normal 81.0-99.0 [facility] Comment on above: Performed By: #### C BC #### [facility] [address] [place] [address] Dr. Asher Renee MONO # 0.5 103/ul Normal 0.3-0.8 [facility] Comment on above: Performed By: #### C BC #### [facility] [address] [place] [address] Dr. Asher Renee Monocytes/100 WBC (Bld) 7.4 % Normal 1.7-12.0 [facility] Comment on above: Performed By: #### C BC #### [facility] [address] [place] [address] Dr. Asher Renee NEUT # 4.2 103/ul Normal 1.4-6.5 [facility] Comment on above: Performed By: #### C BC #### [facility] [address] [place] [address] Dr. Asher Renee Neutrophils/100 WBC (Bld) 64.5 % Normal 43.0-75.0 [facility] Comment on above: Performed By: #### C BC #### [facility] [address] [place] [address] Dr. Asher Renee Platelet mean volume (Bld) [Entitic vol] 10.8 fL Normal 9.5-13.5 [facility] Comment on above: Performed By: #### C BC #### [facility] [address] [place] [address] Dr. Asher Renee PLT 213 103/ul Normal 150-450 [facility] Comment on above: Performed By: #### C BC #### [facility] [address] [place] [address] Dr. Asher Renee RBC 4.20 106/ul Normal 4.20-5.40 [facility] Comment on above: Performed By: #### C BC #### [facility] [address] [place] [address] Dr. Asher Renee WBC 6.5 103/ul Normal 4.0-11.0 [facility] Comment on above: Performed By: #### C BC #### [facility] [address] [place] [address] Dr. Asher Renee PREG QUANT HCGon 03-15-2022 HCG QUANT 58 mIU/mL Normal [facility] Comment on above: Performed By: #### P REGQNT #### [facility] [address] [place] [address] Dr. sAher Renee HCG RANGE SEE BELOW Normal [facility] Comment on above: Result Comment: 5-50 0-1 WEEK 40-300 1-2 WEEKS 100-1,000 2-3 WEEKS 500-6,000 3-4 WEEKS 5,000-200,000 1-2 MONTHS 10,000-100,000 2-3 MONTHS 3,000-50,000 2ND TRIMESTER 1,000-50,000 3RD TRIMESTER Performed By: #### P REGQNT #### [facility] [address] [place] [address] Dr. Asher Renee PROF CHEM 8 (BAS METB)on Anion gap [Moles/Vol] 11.9 mmol/L Normal [facility] Comment on above: Performed By: #### B MP #### [facility] [address] [place] [address] Dr. Asher Renee Calcium [Mass/Vol] 9.0 mg/dL Normal 8.5-10.1 [facility] Comment on above: Performed By: #### B MP #### [facility] [address] [place] [address] Dr. Asher Renee Chloride [Moles/Vol] 105 mmol/L Normal 98-107 [facility] Comment on above: Performed By: #### B MP #### [facility] [address] [address] [address] Asher Renee CO2 [Moles/Vol] 27.7 mmol/L Normal 21.0-32.0 [facility] Comment on above: Performed By: #### B MP #### [facility] [address] [address] [address] Asher Renee Creatinine [Mass/Vol] 0.55 mg/dL Normal 0.55-1.02 [facility] Comment on above: Performed By: #### B MP #### [facility] [address] [place] [address] Dr. Asher Renee EGFR-AF ARGENTINE >60 Normal >=60 [facility] Comment on above: Performed By: #### B MP #### [facility] [address] [place] [address] Dr. Asher Renee EGFR-NON AF ARGENTINE >60 Normal >=60 [facility] Comment on above: Performed By: #### B MP #### [facility] [address] [address] [address] Asher Renee Glucose [Mass/Vol] 95 mg/dL Normal 74-[address] [facility] Comment on above: Performed By: #### B MP #### [facility] [address] [address] [address] Asher Renee Potassium [Moles/Vol] 3.6 mmol/L Normal 3.5-5.1 [facility] Comment on above: Performed By: #### B MP #### [facility] [address] [address] [address] Asher Renee Sodium [Moles/Vol] 141 mmol/L Normal 136-[address] [facility] Comment on above: Performed By: #### B MP #### [facility] [address] [address] [address] Asher Renee Urea nitrogen [Mass/Vol] 10.0 mg/dL Normal 7.0-18.0 [facility] Comment on above: Performed By: #### B MP #### [facility] [address] [place], [place] [address] Dr. Asher Renee Urea nitrogen/Creatinine [Mass ratio] 18.2 mg/mg Normal [facility] Comment on above: Performed By: #### B MP #### [facility] [address], [place] [address] Dr. Asher Renee US RUQon 02-24-2022 US [...] by Dimas Valentino on 02/24/2022 1035 Normal [facility] [place] XR Spine Lumbar Complete w/F jey AND [place] 02-14-2022 XR Spine Lumbar Complete w/Flex AND [...] by Dimas Valentino on 02/14/2022 1555 Normal [facility] [place] Complete Blood Counton 01-06 Erythrocyte distribution width (RBC) [Ratio] 12.4 % Normal 11.0-15.0 [facility] [place] Comment on above: Performed By: #### T 4, CMP, TSH, LIPD, CBC #### [facility] [address] [place], [place] [id number] Hematocrit (Bld) [Volume fraction] 45.5 % Normal 35.0-47.0 [facility] [place] Comment on above: Performed By: #### T 4, CMP, TSH, LIPD, CBC #### [facility] [address] [place], [place] [id number] Hemoglobin (Bld) [Mass/Vol] 15.1 g/dL Normal 11.6-15.5 [facility] [place] Comment on above: Performed By: #### T 4, CMP, TSH, LIPD, CBC #### [facility] [address], [place] [id number] MCH (RBC) [Entitic mass] 30.3 pg Normal 27.0-33.0 [facility] Comment on above: Performed By: #### T 4, CMP, TSH, LIPD, CBC #### [facility] [address], [place] [id number] MCHC (RBC) [Mass/Vol] 33.2 g/dL Normal 32.0-36.0 [facility] Comment on above: Performed By: #### T 4, CMP, TSH, LIPD, CBC #### [facility] [address], [place] [id number] MCV (RBC) [Entitic vol] 91 fL Normal 80-100 [facility] Special[facility] Comment on above: Performed By: #### T 4, CMP, TSH, LIPD, CBC #### [facility] [address] [place], [place] [id number] Platelet mean volume (Bld) [Entitic vol] 11.30 fL Normal 7.50-12.50 [facility] Comment on above: Performed By: #### T 4, CMP, TSH, LIPD, CBC #### [facility] [address] [place], [place] [id number] Platelets (Bld) [#/Vol] 283 10*3/uL Normal 140-400 [facility] Specialist Comment on above: Performed By: #### T 4, CMP, TSH, LIPD, CBC #### [facility] [address] [place], [place] [id number] RBC (Bld) [#/Vol] 4.99 10*6/uL Normal 3.90-5.20 [facility] Specialist Comment on above: Performed By: #### T 4, CMP, TSH, LIPD, CBC #### [facility] [address] [place], [place] [id number] RDW-SD 41.5 fL Normal 37.0-50.0 [facility] Child Welfare Manager Comment on above: Performed By: #### T 4, CMP, TSH, LIPD, CBC #### [facility] [address] [place], [place] [id number] WBC (Bld) [#/Vol] 6.1 10*3/uL Normal 3.8-11.0 Johana rn [place] Child Welfare Manager Comment on above: Performed By: #### T 4, CMP, TSH, LIPD, CBC #### [facility] [address] [place], [place] [id number] Comprehensive Metabolic Pane kamran 01-06-2022 Albumin [Mass/Vol] 5.3 g/dL High 3.6-5.1 Johana rn [place] Child Welfare Manager Comment on above: Performed By: #### T 4, CMP, TSH, LIPD, CBC #### [facility] [address], [place] [id number] Albumin/Globulin [Mass ratio] 2.1 {ratio} Normal 1.0-2.5 [facility] Child Welfare Manager Comment on above: Performed By: #### T 4, CMP, TSH, LIPD, CBC #### [facility] [address] [place], [place] [id number] ALP [Catalytic activity/Vol] 36 U/L Normal 35-119 [facility] Child Welfare Manager Comment on above: Performed By: #### T 4, CMP, TSH, LIPD, CBC #### [facility] [address], [place] [id number] ALT [Catalytic activity/Vol] 12 U/L Normal 6-33 [facility] Child Welfare Manager Comment on above: Result Comment: 09/25 Female reference range changed. Performed By: #### T 4, CMP, TSH, LIPD, CBC #### [facility] [address] [place], [place] [id number] Anion gap [Moles/Vol] 19 mmol/L Normal 12-20 [facility] Child Welfare Manager Comment on above: Result Comment: Effe ctive 10/31/2019 reference range changed. Performed By: #### T 4, CMP, TSH, LIPD, CBC #### [facility] [address] [facility] [place] [id number] AST [Catalytic activity/Vol] 14 U/L Normal 9-34 [facility] Specialist Comment on above: Performed By: #### T 4, CMP, TSH, LIPD, CBC #### [facility] [address] [place], [place] [id number] Bilirubin [Mass/Vol] 1.22 mg/dL High 0.30-1.20 [facility] Specialist Comment on above: Performed By: #### T 4, CMP, TSH, LIPD, CBC #### [facility] [address] [place], [place] [id number] BUN/CREA 18 Ratio Normal 6-22 [facility] Specialist Comment on above: Performed By: #### T 4, CMP, TSH, LIPD, CBC #### [facility] [address] [place], [place] [id number] Calcium [Mass/Vol] 9.9 mg/dL Normal 8.6-10.2 [facility] Comment on above: Performed By: #### T 4, CMP, TSH, LIPD, CBC #### [facility] [address] [place], [place] [id number] Chloride [Moles/Vol] 104 mmol/L Normal 98-107 [facility] Specialist Comment on above: Performed By: #### T 4, CMP, TSH, LIPD, CBC #### [facility] [address] [place], [place] [id number] CO2 [Moles/Vol] 23 mmol/L Normal 20-31 [facility] Specialist Comment on above: Performed By: #### T 4, CMP, TSH, LIPD, CBC #### [facility] [address] [place], [place] [id number] Creatinine [Mass/Vol] 0.6 mg/dL Normal 0.6-1.4 [facility] Special[facility] Comment on above: Performed By: #### T 4, CMP, TSH, LIPD, CBC #### [facility] [address] [place], [place] [id number] eGFRAA 163 mL/min/1.73m2 Normal >60 [facility] Comment on above: Performed By: #### T 4, CMP, TSH, LIPD, CBC #### [facility] [address] [place], [place] [id number] eGFRNAA 135 mL/min/1.73m2 Normal >60 Travis hendricks [place] Child Welfare Manager Comment on above: Performed By: #### T 4, CMP, TSH, LIPD, CBC #### [facility] [address], [place] [id number] Globulin (S) [Mass/Vol] 2.5 g/dL Normal 1.9-3.7 [facility] Child Welfare Manager Comment on above: Performed By: #### T 4, CMP, TSH, LIPD, CBC #### [facility] [address], [place] [id number] Glucose [Mass/Vol] 89 mg/dL Normal 65-99 [facility] [place] Child Welfare Manager Comment on above: Result Comment: For FASTING Glucose --- ADA reference ranges: Normal 65-99 mg/dl Prediabetes 100-125 Diabetes >/= 126 Performed By: #### T 4, CMP, TSH, LIPD, CBC #### [facility] [address], [place] [id number] Potassium [Moles/Vol] 4.0 mmol/L Normal 3.5-5.5 [facility] Child Welfare Manager Comment on above: Performed By: #### T 4, CMP, TSH, LIPD, CBC #### [facility] [address], [place] [id number] Protein [Mass/Vol] 7.8 g/dL Normal 6.1-8.1 [place] Child Welfare Manager Comment on above: Performed By: #### T 4, CMP, TSH, LIPD, CBC #### [facility] [address], [place] [id number] Sodium [Moles/Vol] 142 mmol/L Normal 135-146 [facility] [place] Child Welfare Manager Comment on above: Performed By: #### T 4, CMP, TSH, LIPD, CBC #### [facility] [address], [place] [id number] Urea nitrogen [Mass/Vol] 10 mg/dL Normal 7-25 [facility] Child Welfare Manager Comment on above: Performed By: #### T 4, CMP, TSH, LIPD, CBC #### [facility] [address], [place] [id number] Lipid Panelon 01-06-2022 Cholesterol [Mass/Vol] 175 mg/dL Normal 125-200 [facility] Specialist Comment on above: Result Comment: Low risk < 200mg/dL Borderline risk 201-239 mg/dl High risk > or equal to 240 Performed By: #### T 4, CMP, TSH, LIPD, CBC #### [facility] [address] [id number] Cholesterol in HDL [Mass/Vol] 90 mg/dL Normal >40 [facility] Child Welfare Manager Comment on above: Result Comment: High Cardiovascular Risk HDL <40 mg/dL Low Cardiovascular Risk HDL > or equal to 60 mg/dl Performed By: #### T 4, CMP, TSH, LIPD, CBC #### [facility] [address], [place] [id number] Cholesterol in LDL [Mass/Vol] 75 mg/dL Normal [facility] Specialist Comment on above: Result Comment: LDL ATP III CLASSIFICATION LDL less than 100 mg/dl Optimal LDL 100-129 mg/dl Near or above optimal LDL 130-159 Borderline high LDL 160-189 High LDL greater than 189 mg/dl Very High Performed By: #### T 4, CMP, TSH, LIPD, CBC #### [facility] [address], [place] [id number] Cholesterol in VLDL [Mass/Vol] 10 mg/dL Normal [facility] Specialist Comment on above: Performed By: #### T 4, CMP, TSH, LIPD, CBC #### [facility] [address], [place] [id number] Cholesterol.total/C holesterol in HDL [Mass ratio] 2 {ratio} Normal [facility] Specialist Comment on above: Performed By: #### T 4, CMP, TSH, LIPD, CBC #### [facility] [address] [id number] Triglyceride [Mass/Vol] 51 mg/dL Normal 30-150 [facility] Specialist Comment on above: Result Comment: TRIG ATPIII CLASSIFICATIONS TRIG less than 150 mg/dl Normal TRIG 150-199 mg/dl Borderline High TRIG 200-500 mg/dl High TRIG greather than 500 mg/dl Very High Performed By: #### T 4, CMP, TSH, LIPD, CBC #### [facility] [address] [id number] Q - THYROID PEROXIDASE TPO A Bon 01-06-2022 THYROID PEROXIDASE ANTIBODIES <1 Normal <9 [facility] Child Welfare Manager Comment on above: Order Comment: [facility] performed at: [employer], [employer] [facility], [address] , [address] [place] [address], [address] [place] [address], [employer] Mechan[employer] Teacher: Zander Doherty MD [facility] Date/Time: [facility] Results Received Date/Time: [facility] Reported Date/Time: Performed By: #### 3 4F, [id number] #### [facility] [address] [place] [address] Q - URINALYSIS,COMPLETEon Appearance (U) TURBID Abnormal CLEAR [facility] Specialist Comment on above: Order Comment: [facility] performed at: [employer], [employer] [facility], [address] , [address] [place] [address], [address] [place] [address], [employer] Mechan[employer] Teacher: Zander Doherty MD [facility] Date/Time: [facility] Results Received Date/Time: [facility] Reported Date/Time: Performed By: #### 3 4F, [id number] #### [facility] [address] [place] [address] BACTERIA NONE SEEN Normal NONE SEEN [facility] Child Welfare Manager Comment on above: Order Comment: [facility] performed at: [employer], [employer] [facility], [address] , [address] [place] [address], [address] [place] [address], [employer] Teacher: Zander Doherty MD [facility] Date/Time: [facility] Results Received Date/Time: [facility] Reported Date/Time: Performed By: #### 3 4F, [id number] #### [facility] [address] [place] [address] Bilirubin Ql (U) Negative Normal NEGATIVE [facility] Child Welfare Manager Comment on above: Order Comment: [facility] performed at: [employer], [employer] [facility], [address] , [address] [place] [address], [address] [place] [address], [employer] Mechan[employer] Teacher: Zander Doherty MD [facility] Date/Time: [facility] Results Received Date/Time: [facility] Reported Date/Time: Performed By: #### 3 4F, [id number] #### [facility] [address] [place] [address] CALCIUM OXALATE CRYSTALS MODERATE Abnormal NONE OR FEW [facility] Child Welfare Manager Comment on above: Order Comment: [facility] performed at: [employer], [employer] [facility], [address] [facility], [address] [place] [address], [address] [place] [address], [employer] Teacher: Zander Doherty MD [facility] Date/Time: [facility] Results Received Date/Time: [facility] Reported Date/Time: Performed By: #### 3 4F, [id number] #### [facility] [address] [place] [address] Color (U) DARK YELLOW Normal YELLOW [facility] Child Welfare Manager Comment on above: Order Comment: [facility] performed at: [employer], [employer] [facility], [address] [facility], [address] [place] [address], [address] [place] [address], [employer] Mechan[employer] Teacher: Zander Doherty MD [facility] Date/Time: [facility] Results Received Date/Time: [facility] Reported Date/Time: Performed By: #### 3 4F, [id number] #### [facility] [address] [place] [address] Glucose Ql (U) Negative Normal NEGATIVE [facility] Specialist Comment on above: Order Comment: [facility] performed at: [employer], [employer] [facility], [address] [facility], [address] [place] [address], [address] [place] [address], [employer] Teacher: Zander Doherty MD [facility] Date/Time: [facility] Results Received Date/Time: [facility] Reported Date/Time: Performed By: #### 3 4F, [id number] #### [facility] [address] [place] [address] HYALINE CAST NONE SEEN Normal NONE SEEN [facility] Child Welfare Manager Comment on above: Order Comment: [facility] performed at: [employer], [employer] [facility], [address] [facility], [address] [place] [address], [address] [place] [address], [employer] Teacher: Zander Doherty MD [facility] Date/Time: [facility] Results Received Date/Time: [facility] Reported Date/Time: Performed By: #### 3 4F, [id number] #### [facility] [address] [place] [address] Ketones Ql (U) TRACE Abnormal NEGATIVE [facility] Child Welfare Manager Comment on above: Order Comment: [facility] performed at: [employer], [employer] [facility], [address] [facility], [address] [place] [address], [address] [place] [address], [employer] Teacher: Zander Doehrty MD [facility] Date/Time: [facility] Results Received Date/Time: [facility] Reported Date/Time: Performed By: #### 3 4F, [id number] #### [facility] [address] [place] [address] Leukocyte esterase Test strip Ql (U) Negative Normal NEGATIVE [facility] Child Welfare Manager Comment on above: Order Comment: [facility] performed at: [employer], [employer] [facility], [address] [facility], [address] [place] [address], [address] [place] [address], [employer] Teacher: Zander Doherty MD [facility] Date/Time: [facility] Results Received Date/Time: [facility] Reported Date/Time: Performed By: #### 3 4F, [id number] #### [facility] [address] [place] [address] Nitrite Ql (U) Negative Normal NEGATIVE [facility] Child Welfare Manager Comment on above: Order Comment: [facility] performed at: [employer], [employer] [facility], [address] [facility], [address] [place] [address], [address] [place] [address], [employer] Teacher: Zander Doherty MD [facility] Date/Time: [facility] Results Received Date/Time: [facility] Reported Date/Time: Performed By: #### 3 4F, [id number] #### [facility] [address] [place] [address] OCCULT BLOOD Negative Normal NEGATIVE [facility] Child Welfare Manager Comment on above: Order Comment: [facility] performed at: [employer], [employer] [facility], [address] [facility], [address] [place] [address], [address] [place] [address], [employer] Teacher: Zander Doherty MD [facility] Date/Time: [facility] Results Received Date/Time: [facility] Reported Date/Time: Performed By: #### 3 4F, [id number] #### [facility] [address] [place] [address] pH (U) 5.5 [pH] Normal 5.0-8.0 [facility] Child Welfare Manager Comment on above: Order Comment: [facility] performed at: [employer], [employer] [facility], [address] [facility], [address] [place] [address], [address] [place] [address], [employer] Teacher: Zander Doherty MD [facility] Date/Time: [facility] Results Received Date/Time: [facility] Reported Date/Time: Performed By: #### 3 4F, [id number] #### [facility] [address] [place] [address] Protein Ql (U) TRACE Abnormal NEGATIVE [facility] Child Welfare Manager Comment on above: Order Comment: [facility] performed at: [employer], [employer] [facility], [address] [facility], [address] [place] [address], [address] [place] [address], [employer] Teacher: Zander Doherty MD [facility] Date/Time: [facility] Results Received Date/Time: [facility] Reported Date/Time: Performed By: #### 3 4F, [id number] #### [facility] [address] [place] [address] RBC NONE SEEN Normal < OR = 2 [facility] Child Welfare Manager Comment on above: Order Comment: [facility] performed at: [employer], [employer] [facility], [address] [facility], [address] [place] [address], [address] [place] [address], [employer] Teacher: Zander Doherty MD [facility] Date/Time: [facility] Results Received Date/Time: [facility] Reported Date/Time: Performed By: #### 3 4F, [id number] #### [facility] [address] [place] [address] Specific gravity (U) [Rel density] 1.034 Normal 1.001-1.035 [facility] Child Welfare Manager Comment on above: Order Comment: [facility] performed at: [employer] [employer] [facility], [address] [facility], [address] [place] [address], [address] [place] [address], [employer] Teacher: Zander Doherty MD [facility] Date/Time: [facility] Results Received Date/Time: [facility] Reported Date/Time: Performed By: #### 3 4F, [id number] #### [facility] [address] [place] [address] SQUAMOUS EPITHELIAL CELLS 0-5 Normal < OR = 5 [facility] Child Welfare Manager Comment on above: Order Comment: [facility] performed at: [employer], [employer] [facility], [address] [facility], [address] [place] [address], [address] [place] [address], [employer] Teacher: Zander Doherty MD [facility] Date/Time: [facility] Results Received Date/Time: [facility] Reported Date/Time: Performed By: #### 3 4F, [id number] #### [facility] [address] [place] [address] WBC NONE SEEN Normal < OR = 5 [facility] Child Welfare Manager Comment on above: Order Comment: [facility] performed at: [employer], [employer] [facility], [address] [facility], [address] [place] [address], [address] [place] [address], [employer] Teacher: Zander Doherty MD [facility] Date/Time: [facility] Results Received Date/Time: [id number] [facility] Reported Date/Time: [id number] Performed By: #### 3 4F, [id number] #### [facility] [address] [place] [address] TSHon 01-06-2022 TSH 0.208 uIU/mL Low 0.400-4.500 [facility] Child Welfare Manager Comment on above: Performed By: #### T 4, CMP, TSH, LIPD, CBC #### [facility] [address], [place] [id number] Total T4on 01-06-2022 T4 [Mass/Vol] 7.9 ug/dL Normal 4.5-11.7 [facility] Child Welfare Manager Comment on above: Performed By: #### T 4, CMP, TSH, LIPD, CBC #### [facility] [address], [place] [id number] US Thyroidon 01-06-2022 US Thyroid FINDINGS: Right [...] by Dimas Valentino on 01/07/2022 1021 Normal [facility] Child Welfare Manager Vital Signs Date Time Vital Sign Value Performing Clinician Jada hill 10-13-2024 08:51-0500 Body mass index (BMI) [Ratio] 33.06 kg/m2 Mary Jo Davis PA Work Phone: [facility] 10-13-2024 08:51-0500 Body weight 89.41 kg Mary Jo Davis PA Work Phone: [facility] 10-13-2024 08:51-0500 Diastolic blood pressure 68 mm[Hg] Mary Jo Davis PA Work Phone: [facility] 10-13-2024 08:51-0500 Systolic blood pressure 110 mm[Hg] Mary Jo Davis PA Work Phone: [facility] 10-06-2024 09:39-0500 Body mass index (BMI) [Ratio] 32.72 kg/m2 Mary Jo Keena PA Work Phone: [facility] 10-06-2024 09:39-0500 Body weight 88.51 kg Mary Jo Davis PA Work Phone: [facility] 10-06-2024 09:39-0500 Diastolic blood pressure 70 mm[Hg] Mary Jo Davis PA Work Phone: [facility] 10-06-2024 09:39-0500 Systolic blood pressure 108 mm[Hg] Mary Jo Davis PA Work Phone: [facility] 09-29-2024 08:56-0500 Body mass index (BMI) [Ratio] 32.55 kg/m2 Brandon Rosa DO Work Phone: [facility] 09-29-2024 08:56-0500 Body weight 88.05 kg Brandon Rosa DO Work Phone: [facility] 09-29-2024 08:56-0500 Diastolic blood pressure 70 mm[Hg] Brandon Rosa DO Work Phone: [facility] 09-29-2024 08:56-0500 Systolic blood pressure 110 mm[Hg] Brandon Rosa DO Work Phone: [facility] 09-15-2024 08:47-0500 Body mass index (BMI) [Ratio] 32.2 kg/m2 Mary Jo Davis PA Work Phone: [facility] 09-15-2024 08:47-0500 Body weight 87.09 kg Mary Jo Davis PA Work Phone: [facility] 09-15-2024 08:47-0500 Diastolic blood pressure 74 mm[Hg] Mary Jo Davis PA Work Phone: [facility] 09-15-2024 08:47-0500 Systolic blood pressure 118 mm[Hg] Mary Jo Keena PA Work Phone: [facility] 09-01-2024 09:02-0500 Body mass index (BMI) [Ratio] 31.36 kg/m2 Mary Jo Keena PA Work Phone: [facility] 09-01-2024 09:02-0500 Body weight 84.82 kg Mary Jo Davis PA Work Phone: [facility] 09-01-2024 09:02-0500 Diastolic blood pressure 70 mm[Hg] Mary Jo Davis PA Work Phone: [facility] 09-01-2024 09:02-0500 Systolic blood pressure 114 mm[Hg] Mary Jo Keena PA Work Phone: [facility] 08-18-2024 08:43-0400 Body mass index (BMI) [Ratio] 30.71 kg/m2 Brandon Rosa DO Work Phone: [facility] 08-18-2024 08:43-0400 Body weight 83.06 kg Brandon Rosa DO Work Phone: [facility] 08-18-2024 08:43-0400 Diastolic blood pressure 68 mm[Hg] Brandon Rosa DO Work Phone: [facility] 08-18-2024 08:43-0400 Systolic blood pressure 110 mm[Hg] Brandon Rosa DO Work Phone: [facility] 08-02-2024 08:46-0400 Body mass index (BMI) [Ratio] 30.49 kg/m2 Mary Jo NUÑEZ Work Phone: [facility] 08-02-2024 08:46-0400 Body weight 82.46 kg Mary Jo NUÑEZ Work Phone: [facility] 08-02-2024 08:46-0400 Diastolic blood pressure 70 mm[Hg] Mary Jo NUÑEZ Work Phone: [facility] 08-02-2024 08:46-0400 Systolic blood pressure 100 mm[Hg] Mary Jo NUÑEZ Work Phone: [facility] 07-12-2024 08:56-0400 Body mass index (BMI) [Ratio] 29.85 kg/m2 Brandon Rosa DO Work Phone: [facility] 07-12-2024 08:56-0400 Body weight 80.74 kg Brandon Rosa DO Work Phone: [facility] 07-12-2024 08:56-0400 Diastolic blood pressure 68 mm[Hg] Brandon Rosa DO Work Phone: [facility] 07-12-2024 08:56-0400 Systolic blood pressure 110 mm[Hg] Brandon Rosa DO Work Phone: [facility] Healthcare Encounters Encounter Date Encounter Type Care Provider Facility Start: 10-13-2024 End: 10-13-2024 Bamboo flowsheet Mary Jo NUÑEZ Work Phone: [facility] Start: 10-13-2024 End: 10-13-2024 Bamboo flowsheet Mary Jo NUÑEZ Work Phone: [facility] Start: 10-13-2024 End: 10-13-2024 flow sheet Mary Jo NUÑEZ Work Phone: [facility] Comment on above: 38 weeks gestation o f ; Third trimester Start: 10-13-2024 End: 10-13-2024 ambulatory MARY JO BRINK Not Available Start: 10-06-2024 End: 10-06-2024 Bamboo flowsheet Mary Jo NUÑEZ Work Phone: [facility] Start: 10-06-2024 End: 10-06-2024 Bamboo flowsheet Mary Jo NUÑEZ Work Phone: [facility] Start: 10-06-2024 End: 10-06-2024 flow sheet Mary Jo NUÑEZ Work Phone: [facility] Comment on above: Third trimester preg jefe; 37 weeks gestation of ; Upper respiratory tract infection, unspecified type Start: 10-06-2024 End: 10-06-2024 ambulatory MARY JO BRINK Not Available Start: 09-29-2024 End: 09-29-2024 flow sheet Brandon Rosa DO Work Phone: [facility] Comment on above: 36 weeks gestation o f ; Third trimester Start: 09-29-2024 End: 09-29-2024 ambulatory BRANDON ROSA Not Available Start: 09-15-2024 End: 09-15-2024 Bamboo flowsheet Mary Jo NUÑEZ Work Phone: [facility] Start: 09-15-2024 End: 09-15-2024 Bamboo flowsheet Mary Jo NUÑEZ Work Phone: [facility] Start: 09-15-2024 End: 09-15-2024 flow sheet Mary Jo NUÑEZ Work Phone: [facility] Comment on above: Third trimester preg jefe; 34 weeks gestation of ; Excessive growth affecting management of in third trimester, single or unspecified fetus Start: 09-15-2024 End: 09-15-2024 ambulatory MARY JO BRINK Not Available Start: 09-01-2024 End: 09-01-2024 Bamboo flowsheet Mary Jo NUÑEZ Work Phone: [facility] Start: 09-01-2024 End: 09-01-2024 Bamboo flowsheet Mary Jo NUÑEZ Work Phone: [facility] Start: 09-01-2024 End: 09-01-2024 flow sheet Mary Jo NUÑEZ Work Phone: [facility] Comment on above: Third trimester preg jefe; 32 weeks gestation of Start: 09-01-2024 End: 09-01-2024 ambulatory MARY JO BRINK Not Available Start: 08-18-2024 End: 08-18-2024 Bamboo flowsheet Brandon Rosa DO Work Phone: [facility] Start: 08-18-2024 End: 08-18-2024 Bamboo flowsheet Brandon Rosa DO Work Phone: [facility] Start: 08-18-2024 End: 08-18-2024 ambulatory BRANDON ROSA Not Available Start: 08-18-2024 End: 08-18-2024 flow sheet Brandon Rosa DO Work Phone: [facility] Comment on above: Third trimester preg jefe; 30 weeks gestation of Start: 08-02-2024 End: 08-02-2024 Bamboo flowsheet Mary Jo NUÑEZ Work Phone: [facility] Start: 08-02-2024 End: 08-02-2024 Bamboo flowsheet Mary Jo NUÑEZ Work Phone: [facility] Start: 08-02-2024 End: 08-02-2024 ambulatory MARY JO BRINK Not Available Start: 08-02-2024 End: 08-02-2024 Office outpatient visit 15 minutes Mary Jo NUÑEZ Work Phone: [facility] Comment on above: 27 weeks gestation o f ; Second trimester ; size inconsistent with dates Start: 07-21-2024 End: 07-21-2024 Clinisync Result Encounter Brandon Rosa DO Work Phone: [facility] Unsolicited Start: 07-21-2024 End: 07-21-2024 Clinisync Result Encounter Brandon Rosa DO Work Phone: [facility] Unsolicited Start: 07-12-2024 End: 07-12-2024 Bamboo flowsheet Brandon Rosa DO Work Phone: [facility] Start: 07-12-2024 End: 07-12-2024 Bamboo flowsheet Brandon Rosa DO Work Phone: [facility] Start: 07-12-2024 End: 07-12-2024 ambulatory BRANDON ROSA Not Available Start: 07-12-2024 End: 07-12-2024 flow sheet Brandon Rosa DO Work Phone: [facility] Comment on above: Second trimester pre gnancy Start: 06-13-2024 End: 06-13-2024 ambulatory BRANDON ROSA Not Available Start: 05-16-2024 End: 05-16-2024 ambulatory MARY JO BRINK Not Available Start: 04-18-2024 End: 04-18-2024 ambulatory BRANDON ROSA Not Available Start: 03-18-2024 End: 03-18-2024 ambulatory BRANDON ROSA Not Available Start: 11-07-2022 End: 11-07-[address] CONCEPCIÓN PETERSON Facility:[facility] Start: 10-07-2022 End: 10-10-2022 ambulatory ISAIAH BANERJEE [facility] Start: 08-22-2022 ambulatory RENETTA COLLAZO [facility] Start: 08-20-2022 End: 08-21-2022 ambulatory BILL WORRELL [facility] Start: 03-15-2022 End: 03-15-[address] SARITHA WILEY Facility:[facility] Procedures Date Procedure Procedure Detail Performing Clinician Start: 10-13-2024 Urnls dip stick/tabl et rgnt non-auto w/o micrscp Mary Jo NUÑEZ Work Phone: Start: 10-06-2024 Urnls dip stick/tabl et rgnt non-auto w/o micrscp Mary Jo NUÑEZ Work Phone: Start: 09-29-2024 Urnls dip stick/tabl et rgnt non-auto w/o micrscp Brandon Rosa DO Work Phone: Start: 09-15-2024 Urnls dip stick/tabl et rgnt non-auto w/o micrscp Mary Jo NUÑEZ Work Phone: Start: 09-01-2024 Urnls dip stick/tabl et rgnt non-auto w/o micrscp Mary Jo NUÑEZ Work Phone: Start: 08-18-2024 Urnls dip stick/tabl et rgnt non-auto w/o micrscp Brandno Rosa DO Work Phone: Start: 08-02-2024 Urnls dip stick/tabl et rgnt non-auto w/o micrscp Mary Jo NUÑEZ Work Phone: Start: 07-21-2024 ALL CBC WITH AUTO DIFF Generic External Data Provider Start: 07-12-2024 Urnls dip stick/tabl et rgnt non-auto w/o micrscp Brandon Rosa DO Work Phone: Plan of Treatment Date Care Activity Detail Author Start: 10-13-2024 End: 10-13-2024 Patient encounter procedure [facility] Comment on above: Arrived Start: 10-06-2024 End: 10-06-2024 Patient encounter procedure [facility] Comment on above: Arrived Start: 09-29-2024 End: 09-29-2025 Strep B DNA probe, amplification Strep B DNA probe, amplification Lab Routine Third trimester Expected: 09/29/2024 (Approximate), Expires: 09/29/2025 [facility] Work Phone: Comment on above: Expected: 09/29/2024 (Approximate), Expires: 09/29/2025 Start: 09-29-2024 End: 09-29-2024 Patient encounter procedure 09/29/2024 8:30 AM EST Routine [facility] [address] [place] [address] Brandon Lee, DO [address] [place] [address] [facility] Start: 09-29-2024 End: 09-29-2024 Professional / ancillary services management 09/29/2024 8:00 AM EST Ancillary Procedure [facility] [address] [place] [place] [id number] [facility] Start: 09-15-2024 End: 09-15-2025 [...] AM EDT Routine [facility] [address] [place] [address] Brandon Lee DO [address] [place] [address] [facility] Start: 08-18-2024 End: 08-18-2024 Professional / ancillary services management 08/18/2024 8:00 AM EDT Ancillary Procedure [facility] [address] [place] [id number] [facility] Start: 08-02-2024 End: 08-02-2025 US for US OB SCAN FOR GROWTH Imaging Routine size inconsistent with dates Expected: 08/02/2024 (Approximate), Expires: 08/02/2025 [facility] Work Phone: Comment on above: Expected: 08/02/2024 (Approximate), Expires: 08/02/2025 Start: 08-02-2024 End: 08-02-2024 Patient encounter procedure 08/02/2024 8:30 AM EDT Routine [facility] [address] [id number] Mary Jo Brink PA [address] [place] [address] [facility] Start: 06-26-2024 Influenza vaccination Influenza Vacc ine (#1) [facility] Immunizations Immunization Date Immunization Notes Care Provider Fa torstenty 09-21-2017 influenza virus vacc ine, unspecified formulation Brandon Lee DO Work Phone: [facility] Payers Date Payer Category Payer Medicaid [id number] 2024 Private Health Insurance [employer] [id number] 2024 Unknown [employer]ALTH [employer]IGN [facility] [employer] [id number] 2024-Present [phone] [address] [place] [address] [id number] 2024 Unknown [id number] 1996 Unknown [id number] 2.16.840.1.526636.3.579.2. 593 1996 Unknown [id number] 2.16.840.1.031219.3.579.2. 593 1996 Unknown [id number] 2.16.840.1.945295.3.579.2. 1259 1996 Unknown [id number] 2.16.840.1.932936.3.579.2. 1259 1996 Unknown [id number] 2.16.840.1.015708.3.579.2. 1259 1996 Unknown [id number] 2.16.840.1.729259.3.579.2. 1259 1996 Unknown [id number] 2.16.840.1.282400.3.579.2. 1259 1996 Unknown [id number] 2.16.840.1.973198.3.579.2. 1259 1996 Unknown [id number] 2.16.840.1.809436.3.579.2. 1259 1996 Unknown [id number] 2.16.840.1.319828.3.579.2. 1259 1996 Unknown [id number] 2.16.840.1.512623.3.579.2. 1259 1996 Unknown [id number] 2.16.840.1.103251.3.579.2. 1259 1996 Unknown [id number] 2.16.840.1.451399.3.579.2. 1259 1996 Unknown [id number] 2.16.840.1.604342.3.579.2. 1259 1958 Medicaid [id number] 1958 Unknown [id number] Social History Date Type Detail Facility Start: 05-16-2024 Tobacco smoking stat [facility] Never smoked tobacco [facility] Start: 05-16-2024 Tobacco use and exposure Smoke less tobacco non-user [facility] Start: 07-12-2024 End: 10-13-2024 Alcoholic beverage intake Ex-drinker (finding) [facility] Start: 05-16-2024 History of Social function [facility] Start: 05-16-2024 Tobacco use panel [facility] Start: 02-04-2024 [facility] Start: 1995 Sex assigned at Female N [facility] Clinical Notes 05-16-2022 to 10-13-2024 Mary DEBORAH Turner - 10/13/2024 8:50 AM JOAQUIN Bryant - 10/06/2024 9:20 AM Conner Turner [employer] - 09/29/2024 8:30 AM JOAQUIN Bryant - 09/15/2024 8:40 AM JOAQUIN Bryant - 09/01/2024 8:30 AM EST Note Date & Type Note Facility 10-13-2024 History of Present illness Narrative Reason for Appointment: Patient ID: Chani Stone is a 29 y.o. female who presents for Routine Visit Patient presents today for Return OB appointment. MEDICATIONS Current Outpatient Medications Medication Instructions albuterol HFA 90 mcg/act inhaler 2 puffs, Every 6 hours PRN aspirin 81 mg, Daily Baqphoxf-Fwy-Ld-FA ( 1 + IRON PO) ALLERGIES No Known Allergies PROBLEMS Active Ambulatory Problems Diagnosis Date Noted 30 weeks gestation of 08/18/2024 Third trimester 08/18/2024 Upper respiratory tract infection 10/06/2024 Resolved Ambulatory Problems Diagnosis Date Noted No [...] Constitutional: Appearance: Normal appearance. She is well-developed. Genitourinary: Vulva normal. Cardiovascular: Rate and Rhythm: Normal rate and [...] nursing note reviewed. Exam conducted with a multimedia author present. Vitals: Estimated body mass index is 33.06 kg/m as calculated from the following: Height as of 11/07/22: 5' 4.75 . Weight as of this encounter: 197 lb 1.9 oz. BP: 110/68 Patient's last menstrual period was 01/21/2024. ASSESSMENT & PLAN ICD-10-CM 1. 38 weeks gestation of Z3A.38 POCT urinalysis dipstick manually resulted 2. Third trimester Z34.93 POCT urinalysis dipstick manually resulted Patient presents today for a routine obstetrics appointment. Patient is currently 38w0d with a Estimated Date of Delivery: 10/27/24. Patient is not currently dilated and will have repeat . Documented by Mary Turner LPN on behalf of: JOAQUIN Barrera documented in this encounter [facility] 10-06-2024 History of Present illness Narrative Reason for Appointment: Patient ID: Chani Stone is a 29 y.o. female who presents for Routine Visit Patient presents today for Return OB appointment. MEDICATIONS Current Outpatient Medications Medication Instructions albuterol HFA 90 mcg/act inhaler 2 puffs, Every 6 hours PRN aspirin 81 mg, Daily Vefzjqej-Mcg-Hb-FA ( 1 + IRON PO) ALLERGIES No [...] Exam Constitutional: Appearance: Normal appearance. She is well-developed and normal weight. Genitourinary: Vulva normal. HENT: Head: Normocephalic. Cardiovascular: Rate and Rhythm: Normal rate and regular rhythm. Pulses: Normal pulses. Pulmonary: Effort: Pulmonary effort is normal. Breath sounds: Normal breath sounds. Abdominal: General: Bowel sounds are normal. There is no distension. Palpations: Abdomen is soft. Tenderness: There is no abdominal tenderness. There is no guarding or rebound. Musculoskeletal: General: No swelling. Normal range of motion. Right lower leg: No edema. Left lower leg: No edema. Neurological: General: No focal deficit present. Mental Status: She is alert and oriented to person, place, and time. Skin: General: Skin is warm and dry. Psychiatric: Mood and Affect: Mood normal. Behavior: Behavior normal. Thought Content: Thought content normal. Judgment: Judgment normal. Vitals and nursing note reviewed. Exam conducted with a multimedia author present. Vitals: Estimated body mass index is 32.72 kg/m as calculated from the following: Height as of 11/07/22: 5' 4.75 . Weight as of this encounter: 195 lb 1.9 oz. BP: 108/70 Patient's last menstrual period was 01/21/2024. ASSESSMENT & PLAN ICD-10-CM 1. Third trimester Z34.93 POCT urinalysis dipstick manually resulted 2. 37 weeks gestation of Z3A.37 POCT urinalysis dipstick manually resulted Patient presents today for a routine obstetrics appointment. Patient is currently 37w0d with a Estimated Date of Delivery: 10/27/24. URI with sinus drainage--will send z-pack. Patient to RTC in 1 week. Documented by Mary Turner LPN on behalf of: JOAQUIN Barrera documented in this encounter [facility] 09-29-2024 History of Present illness Narrative Reason for Appointment: Patient ID: Chani Stone is a 29 y.o. female who presents for No chief complaint on file. Patient presents today for Return OB appointment. MEDICATIONS Current Outpatient Medications Medication Instructions albuterol HFA 90 mcg/act inhaler 2 puffs, Every 6 hours PRN Yujsgdmu-Aak-Ds-FA ( 1 + IRON PO) ALLERGIES No [...] Constitutional: Appearance: Normal appearance. She is well-developed. Genitourinary: Vulva normal. Cardiovascular: Rate and Rhythm: Normal rate and [...] nursing note reviewed. Exam conducted with a multimedia author present. Vitals: Estimated body mass index is 32.55 kg/m as calculated from the following: Height as of 11/07/22: 5' 4.75 . Weight as of this encounter: 194 lb 1.9 oz. BP: 110/70 Patient's last menstrual period was 01/21/2024. ASSESSMENT & PLAN ICD-10-CM 1. 36 weeks gestation of Z3A.36 POCT urinalysis dipstick manually resulted 2. Third trimester Z34.93 POCT urinalysis dipstick manually resulted Strep B DNA probe, amplification Strep B DNA probe, amplification Patient is doing well but has complaints of being tired and having maternal discomfort due to . Patient verbalized frequent movement and was instructed to perform kick counts three times per day. labor precautions were given, LARC consent was signed/declined, and GBS was obtained. Cervical check was performed and patient is 0cm dilated. Orders Placed This Encounter Procedures Strep B DNA probe, amplification POCT urinalysis dipstick manually resulted Follow Up: Patient is to return to office in 1 week for routine OB appointment Documented by Mary Turner LPN on behalf of: Brandon Lee DO documented in this encounter [facility] 09-15-2024 History of Present illness Narrative Reason for Appointment: Patient ID: Chani Stone is a 29 y.o. female who presents for Routine Visit Patient presents today for Return OB appointment. MEDICATIONS Current Outpatient Medications Medication Instructions albuterol HFA 90 mcg/act inhaler 2 puffs, Inhalation, Every 6 hours PRN Iraaicdj-Lgd-Dq-FA ( 1 + IRON PO) ALLERGIES No [...] of: JOAQUIN Barrera documented in this encounter [facility] 09-01-2024 History of Present illness Narrative Reason for Appointment: Patient ID: Chani Stone is a 29 y.o. female who presents for Routine Visit Patient presents today for Return OB appointment. MEDICATIONS Current Outpatient Medications Medication Instructions albuterol HFA 90 mcg/act inhaler 2 puffs, Inhalation, Every 6 hours PRN Zibywxaj-Mzb-Zj-FA ( 1 + IRON PO) ALLERGIES No [...] of: JOAQUIN Barrera documented in this encounter [facility] 08-18-2024 History of Present illness Narrative Reason for Appointment: Patient ID: Chani Stone is a 29 y.o. female who presents for Routine Visit Patient presents today for Return OB appointment. MEDICATIONS Current Outpatient Medications Medication Instructions albuterol HFA 90 mcg/act inhaler 2 puffs, Inhalation, Every 6 hours PRN Igstwdrz-Kug-Hm-FA ( 1 + IRON PO) ALLERGIES No [...] nursing note reviewed. Exam conducted with a multimedia author present. Vitals: Estimated body mass index is [...] Brandon Lee DO documented in this encounter [facility] 08-02-2024 History of Present illness Narrative Reason for Appointment: Patient ID: Chani Stone is a 29 y.o. female who presents for Routine Visit Patient presents today for Return OB appointment. MEDICATIONS Current Outpatient Medications Medication Instructions albuterol HFA 90 mcg/act inhaler 2 puffs, Inhalation, Every 6 hours PRN Lvomalsi-Vpt-Gc-FA ( 1 + IRON PO) ALLERGIES No [...] nursing note reviewed. Exam conducted with a multimedia author present. Vitals: Estimated body mass index is [...] of: JOAQUIN Barrera documented in this encounter [facility] 07-12-2024 History of Present illness Narrative Reason for Appointment: Patient ID: Chani Stone is a 28 y.o. female who presents for Routine Visit Patient presents today for Return OB appointment. MEDICATIONS Current Outpatient Medications Medication Instructions albuterol HFA 90 mcg/act inhaler 2 puffs, Inhalation, Every 6 hours PRN Rnsilceh-Woj-Gr-FA ( 1 + IRON PO) ALLERGIES No [...] reviewed. Vitals: Estimated body mass index is 29.85 kg/m as calculated from the following: Height as of 11/07/22: 5' 4.75 . Weight as of this encounter: 178 lb. BP: 110/68 Patient's last menstrual period was 01/21/2024. ASSESSMENT & PLAN ICD-10-CM 1. Second trimester Z34.92 POCT urinalysis dipstick manually resulted Return OB: Patient presents today for a routine obstetrics appointment. Patient is currently 24w5d . Patient states she is doing well but has complaints of being tired due to current . Patient has verbalizes frequent movement. Orders Placed This Encounter Procedures POCT urinalysis dipstick manually resulted Follow Up: Patient is to return to office in 3 week for routine OB appointment. 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 Patient History [...] PT/chiropractic therapy Start Neurontin F/U 3 months [facility] 08-22-2022 Note Sports Medicine Subj ective Pain [...] office. 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 Patient History [...] be an additional personal documentation from me. [facility] 05-16-2022 Note HISTORY: Left sided pain and tingling PROCEDURE: GE Signa HDXT 1.5. Sagittal T1, T2, STIR [...] signed by Dimas Valentino on 05/19/2022 [address] [facility] Child Welfare Manager Evaluation note Diagnosis 27 weeks gestation of [...] unspecified fetus [facility] Diagnosis 36 weeks gestation of Third trimester state, incidental [facility]* Diagnosis Second trimester state, incidental [facility] Diagnosis Third trimester state, incidental 37 weeks gestation of Upper respiratory tract infection, unspecified type [facility] Diagnosis 38 weeks gestation of Third trimester state, incidental documented in this encounter [facility] Summary Purpose Family History No Family History Records FoundNo Family History Records FoundNo Family History Records FoundNo Family History Records Found Advance Directives No Advanced Directives Records FoundNo Advanced Directives Records FoundNo Advanced Directives Records FoundNo Advanced Directives Records Found Additional Source Comments INFORMATION SOURCE (unrecogn ized section and content) DATE CREATED AUTHOR 05/19/2022 [facility] dical Specialist DATE CREATED AUTHOR AUTHOR'S ORGANIZ ATION 11/18/2022 [facility] pital DATE CREATED AUTHOR AUTHOR'S ORGANIZ ATION 02/07/[address] [facility] DATE CREATED AUTHOR AUTHOR'S ORGANIZ ATION 10/16/2024 [facility] dical Specialists [facility] Care Teams (unrecognized sec tion and content) Case Management Specialist Relationship Specialty Start Date End Date Saritha Wiley MD [address] [place] [address] PCP - General Family Medicine 03/03/23 Joi Bravo MD PCP - [facility] 04/25/24 Case Management Specialist Relationship Specialty Start Date End Date Saritha Wiley MD [address] [place] [address] PCP - General Family Medicine 03/03/23 Joi Bravo MD PCP - [facility] 04/25/24 Case Management Specialist Relationship Specialty Start Date End Date WonderSaritha pathak MD [address] [place] [address] PCP - General Family Medicine 03/03/23 Joi Bravo MD PCP - [facility] 04/25/24 Case Management Specialist Relationship Specialty Start Date End Date WonderlySaritha MD [address] [place] [address] PCP - [facility] Medicine 03/03/23 Joi Bravo MD PCP - [facility] 04/25/24 Case Management Specialist Relationship Specialty Start Date End Date Wonderly, Saritha Goldberg MD [address] [place] [address] PCP - General Family Medicine 03/03/23 Case Management Specialist Relationship Specialty Start Date End Date WonderSaritha pathak MD [address] [place] [address] PCP - General Family Medicine 03/03/23 Case Management Specialist Relationship Specialty Start Date End Date WonderSaritha pathak MD [address] [place] [address] PCP - General [employer] Medicine 03/03/23 Case Management Specialist Relationship Specialty Start Date End Date WonderSaritha pathak MD [address] [place] [address] PCP - General [facility] 03/03/23 Case Management Specialist Relationship Specialty Start Date End Date Saritha Wiley MD [address] [place] [address] PCP - [facility] 03/03/23 Joi Bravo MD PCP - [facility] 04/25/24 Case Management Specialist Relationship Specialty Start Date End Date Saritha Wiley MD [address] [place] [address] PCP - [facility] 03/03/23 Case Management Specialist Relationship Specialty Start Date End Date Saritha Wiley MD [address] [facility] [place] [address] PCP - [facility] 03/03/23 Joi Bravo MD PCP - [facility] 04/25/24 Reason for Visit (unrecogniz ed [...] BE BASED ON THE PRIMARY CLINICAL RECORDS. [facility] [employer] [facility]. provides no warranty or guarantee of the accuracy or completeness of information in this document.
[2024-10-20] MEDS: 0.9 % SODIUM CHLORIDE 1,000 ML 125 ML IV ×3 (06:04→10:02)
[2024-10-20] MEDS: FAMOTIDINE/PF 20 MG/2 ML VIAL IV (06:58)
[2024-10-20] MEDS: METOCLOPRAMIDE HCL 10 MG/2 ML VIAL IVP (06:58)
[2024-10-20 07:04] LABS: Basophils Percent Auto 0.2 % (0.2-2.0); Eosinophils Absolute Auto 0.1 10^3/uL (0.0-0.7); Eosinophils Percent Auto 1.3 % (0.9-7.0); Hematocrit 36.9 % (36.0-48.0); Hemoglobin 12.5 g/dL (12.0-16.0); Immature Granulocytes Abs Auto 0.06 10^3/uL (0.00-0.03); Immature Granulocytes Pct Auto 0.7 % (0.0-0.5); Lymphocytes Absolute Auto 1.7 10^3/uL (1.2-3.8); Lymphocytes Percent Auto 18.8 % (20.5-60.0); Mean Corpuscular HGB Conc 33.9 g/dL (29.9-35.2); Mean Corpuscular Hemoglobin 30.9 pg (26.7-34.0); Mean Corpuscular Volume 91.1 fL (81.0-99.0); Monocytes Absolute Auto 0.8 10^3/uL (0.3-0.8); Monocytes Percent Auto 8.4 % (1.7-12.0); Neutrophils Absolute Auto 6.4 10^3/uL (1.4-6.5); Neutrophils Percent Auto 70.6 % (43.0-75.0); Platelet Count 199 10^3/uL (150-450); Red Blood Count 4.05 10^6/uL (4.20-5.40); Red Cell Distribution Width 13.3 % (11.0-15.0)
[2024-10-20] MEDS: CITRIC ACID/SODIUM CITRATE 30 ML SOLUTION ORACIT SHOHL'S SOLN PO (07:22)
[2024-10-20] MEDS: CEFAZOLIN SODIUM/DEXTROSE,ISO 2 GM/50 ML PIGGYBACK IV ×2 (07:23→13:39)
--- NOTE | 2024-10-20 07:42 | PM.OBHP ---
OB - H&P: HPI History of Present Illness Chief complaint: : 3 Para: 1 Gestational age based on last menstrual period: 40 History of Present Dating criteria: LMP confirmed by 2nd trimester US Medical complications OB: none Labs Blood type: A (+) positive Rubella: immune RPR/VDLR: nonreactive GBS status: negative HBsAG: negative Review of Systems ROS Status of ROS: 10 or more systems reviewed and unremarkable except as noted in history and below PFSH PFSH Social History Little interest or pleasure in doing things: not at all Feeling down, depressed, or hopeless: not at all Meds Home Medications and Allergies Allergies Allergy/AdvReac Type Severity Reaction Status Date / Time No Known Allergies Allergy n/a Verified 10/20/24 05:29 Exam Constitutional Vital Signs, click to edit/add: Last Vital Signs Temp 99.0 F 10/20/24 06:32 Resp 16 10/20/24 06:32 O2 Del Method Room Air 10/20/24 06:32 Documenting provider has reviewed patient's vital signs: yes Common normals: no apparent distress Respiratory Common normals: normal respiratory effort and clear to auscultation bilaterally Cardio Common normals: regular rate and regular rhythm GI Common normals: Normal to inspection, nondistended, normoactive bowel sounds present Extremity Common normals: normal to inspection and no clubbing, cyanosis or edema Results Labs Labs: Short CBC 10/20/24 Range/Units 05:55 WBC 9.0 (4.0-11.0) 10^3/uL Hgb 12.5 (12.0-16.0) g/dL Hct 36.9 (36.0-48.0) % Plt Count 199 (150-450) 10^3/uL OB - A/P Assessment and Plan (1) Intrauterine : (2) Previous section: Assessment and Plan: consent obtained, mmc reviewed, procedure reviewed, will proceed to or
[2024-10-20 07:50] LABS: Amphetamine Screen Urine NEGATIVE (NEGATIVE); Barbiturates Screen Urine NEGATIVE (NEGATIVE); Benzodiazepines Screen Urine NEGATIVE (NEGATIVE); Buprenorphine Screen Urine NEGATIVE (NEGATIVE); Cannabinoid Screen Urine NEGATIVE (NEGATIVE); Cocaine Screen Urine NEGATIVE (NEGATIVE); Methadone Screen Urine NEGATIVE (NEGATIVE); Methamphetamines Screen Urine NEGATIVE (NEGATIVE); Opiate Screen Urine NEGATIVE (NEGATIVE); Oxycodone Screen Urine NEGATIVE (NEGATIVE); Phencyclidine Screen Urine NEGATIVE (NEGATIVE); Tricyclic Antidepressant Urine NEGATIVE (NEGATIVE)
[2024-10-20] MEDS: LACTATED RINGER'S SOLUTION 1,000 ML 50 ML IV ×2 (08:19→08:39)
--- NOTE | 2024-10-20 08:38 | PM.ONB ---
Brief Operative Note Date of procedure: 10/20/24 Pre-op diagnosis general: iup at 39wks, previous c/s Post-op diagnosis: same as pre-op Procedure: NAME OF PROCEDURE: [ section ] PROCEDURE: Patient was taken back to the Operating Room where she was given a spinal anesthesia with Duramorph without difficulty. She was prepped and draped in the normal sterile fashion. A Pfannenstiel skin incision was then made 2 cm above the symphysis pubis and carried down to underlying rectus fascia using a Bovie. The fascia was incised in the midline and extended laterally using Barrett scissors. Two Patrick clamps were placed on the superior aspect of the fascia and dissected off the underlying rectus muscles. The same was performed on the inferior aspect as well. The muscles were then in the midline. Peritoneum was identified and entered bluntly. The peritoneum was then extended superiorly and inferiorly with good visualization of the bladder. The bladder blade was inserted. A low transverse incision was made on the patient's uterus and extended laterally digitally. The was then delivered atraumatically after the bladder blade was removed in the cephalic position. The cord was clamped and cut. Cord blood was obtained. The was handed off to awaiting team. The patient's placenta was spontaneously delivered. The uterus was then exteriorized. The uterus was cleared of all clots and debris. The bladder blade was reinserted. The patient's uterine incision was closed using #0 Vicryl in a running lock fashion. Excellent hemostasis was assured. The uterus was then returned to the patient's abdomen. The patient's abdomen was copiously irrigated using warm saline. Peritoneal gutters were cleared of all clots and debris. Again excellent hemostasis was assured. The patient's peritoneum was closed using 3-0 Vicryl in a running fashion. The patient's fascia was closed using #0 Vicryl in a running fashion. The patient's skin was closed using 4-0 Vicryl subcuticularly. The patient tolerated the procedure well. Sponge, lap, and needle counts were correct x2. The patient was taken to the Recovery Room in stable condition. Anesthesia: spinal Surgeon: Manuel Lee Refining Equipment Operator: Bella Johnson Estimated blood loss (mL): 575 Pathology: none sent Condition: stable Disposition: floor
--- NOTE | 2024-10-20 08:42 | PM.OBPRCCS ---
Procedure Pre-op/Post-op diagnoses: iup at 39wks, previous c/s Procedure: NAME OF PROCEDURE: [ section ] PROCEDURE: Patient was taken back to the Operating Room where she was given a spinal anesthesia with Duramorph without difficulty. She was prepped and draped in the normal sterile fashion. A Pfannenstiel skin incision was then made 2 cm above the symphysis pubis and carried down to underlying rectus fascia using a Bovie. The fascia was incised in the midline and extended laterally using Barrett scissors. Two Patrick clamps were placed on the superior aspect of the fascia and dissected off the underlying rectus muscles. The same was performed on the inferior aspect as well. The muscles were then in the midline. Peritoneum was identified and entered bluntly. The peritoneum was then extended superiorly and inferiorly with good visualization of the bladder. The bladder blade was inserted. A low transverse incision was made on the patient's uterus and extended laterally digitally. The was then delivered atraumatically after the bladder blade was removed in the cephalic position. The cord was clamped and cut. Cord blood was obtained. The was handed off to awaiting team. The patient's placenta was spontaneously delivered. The uterus was then exteriorized. The uterus was cleared of all clots and debris. The bladder blade was reinserted. The patient's uterine incision was closed using #0 Vicryl in a running lock fashion. Excellent hemostasis was assured. The uterus was then returned to the patient's abdomen. The patient's abdomen was copiously irrigated using warm saline. Peritoneal gutters were cleared of all clots and debris. Again excellent hemostasis was assured. The patient's peritoneum was closed using 3-0 Vicryl in a running fashion. The patient's fascia was closed using #0 Vicryl in a running fashion. The patient's skin was closed using 4-0 Vicryl subcuticularly. The patient tolerated the procedure well. Sponge, lap, and needle counts were correct x2. The patient was taken to the Recovery Room in stable condition. Paleontology Teacher: Bella Johnson Estimated blood loss (mL): 575 Disposition: floor Anesthesia type: Spinal
--- NOTE | 2024-10-20 12:51 | PC.NURSE ---
Report recieved from Zeb RESENDEZ. PACU recovery completed. RN assumes care.
[2024-10-20] MEDS: ONDANSETRON PF 4 MG/2 ML VIAL IV (14:02)
[2024-10-20] MEDS: KETOROLAC TROMETHAMINE 30 MG/ML VIAL IVP ×2 (15:54→21:19)
[2024-10-20] MEDS: ACETAMINOPHEN 500 MG TABLET 1000 MG PO (17:27)
--- NOTE | 2024-10-20 19:13 | W.PC.ACHO ---
Registration Status: ADM IN Primary Language: Canadian Preferred Language: Canadian Report given to Garland RESENDEZ. Active Medications Generic Name Dose Route Start Last Admin Trade Name Freq PRN Reason Stop Dose Admin Acetaminophen 1,000 mg 10/20/24 09:00 10/20/24 17:27 Acetaminophen 500 Mg Tablet PO 10/22/24 08:48 1,000 mg Q8H DAISY Administration Al Hydroxide/Mg Hydroxide 2,400 mg 10/20/24 08:47 Magnesium Hydroxide 2,400 Mg/10 Ml Oral.Susp PO Q6H PRN Dyspepsia Diphenhydramine HCl 25 mg 10/20/24 08:47 Diphenhydramine Hcl 50 Mg/Ml Vial IV 10/21/24 08:47 Q6H PRN Itching Diphtheria/Pertussis/Tetanus Vacc 0.5 ml 10/22/24 09:00 Adacel Diph,Pertuss(Acell),Tet Vac/Pf 0.5 Ml Adult Syringe IM 10/22/24 09:01 .ONCE ONE Docusate Sodium 100 mg 10/21/24 09:00 Docusate Sodium 100 Mg Capsule PO BID DAISY Enoxaparin Sodium 40 mg 10/20/24 21:00 Enoxaparin Sodium 40 Mg/0.4 Ml Syringe SUBQ Q24H DAISY Sodium Chloride 1,000 mls @ 125 mls/hr 10/20/24 05:30 10/20/24 17:29 Sodium Chloride 0.9% 1,000 Ml IV Infused .Q8H DAISY Infusion Oxytocin/Sodium Chloride 20 units in 1,000 mls @ 125 mls/hr 10/20/24 05:23 Pitocin 20 Unit/1,000 Ml-Ns IV Q8H PRN POST DELIVERY Lactated Ringer's 1,000 mls @ 50 mls/hr 10/20/24 09:00 10/20/24 08:19 Lactated Ringers IV 50 mls/hr .Q20H DAISY Administration Lactated Ringer's 1,000 mls @ 50 mls/hr 10/20/24 09:00 10/20/24 08:39 Lactated Ringers IV 50 mls/hr .Q20H DAISY Administration Promethazine HCl 25 mg/ Sodium 51 mls @ 204 mls/hr 10/20/24 08:47 Chloride IV Q6H PRN Nausea And Vomiting Lactated Ringer's 1,000 mls @ 125 mls/hr 10/20/24 08:47 Lactated Ringers IV .Q8H PRN IF NOT TOLERATING PO FLUIDS OR Ibuprofen 800 mg 10/21/24 09:00 Ibuprofen 400 Mg Tablet PO Q6H DAISY Ketorolac Tromethamine 30 mg 10/20/24 09:00 10/20/24 15:54 Ketorolac Tromethamine 30 Mg/Ml Vial IVP 10/20/24 21:01 30 mg Q6H DAISY Administration Measles/Mumps/Rubella Vaccine Live 0.5 ml 10/22/24 09:00 Measles,Mumps,Rubella Vacc/Pf 0.5 Ml Vial SQ 10/22/24 09:01 .ONCE ONE Nalbuphine HCl 10 mg 10/20/24 08:47 Nalbuphine Hcl 10 Mg/Ml Ampule IV 10/21/24 08:47 Q3H PRN Itching Ondansetron HCl 4 mg 10/20/24 08:47 10/20/24 14:02 Ondansetron Pf 4 Mg/2 Ml Vial IV 4 mg Q6H PRN Administration Nausea And Vomiting Ondansetron HCl 4 mg 10/20/24 08:47 Ondansetron 4 Mg Rapdis Tablet PO Q6H PRN Nausea And Vomiting Oxycodone HCl 5 mg 10/20/24 08:47 Oxycodone Hcl 5 Mg Tablet PO Q4H PRN Breakthrough Pain Senna 17.2 mg 10/20/24 20:00 Sennosides 8.6 Mg Tablet PO QHS PRN Constipation Simethicone 80 mg 10/20/24 08:47 Simethicone 80 Mg Tab.Chew PO QID PRN Abdominal Distention Diet Category Date Time Status Regular Consistency Diet Diet 10/20/24 10:41 Active IV Insertion/Site Date of IV Line Insertion [ 10/20/24 Short PIV (<1.75 in) 20g left Forearm] IV Insertion Time [Short PIV ( 05:55 <1.75 in) 20g left Forearm] Neurology Patient orientation (short person,place,time,situation list) Respiratory Pulse Oximetry 96 Pulse Oximetry 95 Pulse Oximetry 95 Pulse Oximetry 96 Pulse Oximetry 95 Pulse Oximetry 95 Pulse Oximetry 95 Pulse Oximetry 95 Pulse Oximetry 95 Pulse Oximetry 95 Pulse Oximetry 94 Pulse Oximetry 95 Pulse Oximetry 95 Pulse Oximetry 94 Pulse Oximetry 95 Pulse Oximetry 95 Pulse Oximetry 95 Pulse Oximetry 96 Pulse Oximetry 96 Pulse Oximetry 95 Oxygen Delivery Method Room Air Oxygen Delivery Method Room Air Oxygen Delivery Method Room Air Cardiology Heart Sounds Regular Catheter Urinary Catheter Date of 10/20/24 Insertion [Urethral] Urinary Catheter Time of 07:57 Insertion [Urethral]
[2024-10-20] MEDS: ENOXAPARIN SODIUM 40 MG/0.4 ML SYRINGE SUBQ (21:19)
[2024-10-21] MEDS: ACETAMINOPHEN 500 MG TABLET 1000 MG PO ×3 (01:05→23:54)
[2024-10-21 01:08] VITALS: BP 99/54; PULSE 71; TEMP 36.8
[2024-10-21] MEDS: KETOROLAC TROMETHAMINE 30 MG/ML VIAL IVP (03:02)
[2024-10-21 05:13] VITALS: BP 101/51; PULSE 62; TEMP 36.7
[2024-10-21 06:38] LABS: Basophils Percent Auto 0.1 % (0.2-2.0); Eosinophils Absolute Auto 0.1 10^3/uL (0.0-0.7); Eosinophils Percent Auto 0.3 % (0.9-7.0); Hematocrit 30.6 % (36.0-48.0); Hemoglobin 10.5 g/dL (12.0-16.0); Immature Granulocytes Pct Auto 0.6 % (0.0-0.5); Lymphocytes Absolute Auto 1.7 10^3/uL (1.2-3.8); Lymphocytes Percent Auto 9.2 % (20.5-60.0); Mean Corpuscular HGB Conc 34.3 g/dL (29.9-35.2); Mean Corpuscular Hemoglobin 31.4 pg (26.7-34.0); Mean Corpuscular Volume 91.6 fL (81.0-99.0); Mean Platelet Volume 10.5 fL (9.5-13.5); Monocytes Absolute Auto 1.4 10^3/uL (0.3-0.8); Monocytes Percent Auto 7.8 % (1.7-12.0); Neutrophils Absolute Auto 14.8 10^3/uL (1.4-6.5); Platelet Count 181 10^3/uL (150-450); Red Blood Count 3.34 10^6/uL (4.20-5.40); Red Cell Distribution Width 13.3 % (11.0-15.0); White Blood Count 18.1 10^3/uL (4.0-11.0)
[2024-10-21 08:30] VITALS: TEMP 36.5
[2024-10-21] MEDS: IBUPROFEN 400 MG TABLET 800 MG PO ×3 (08:31→21:35)
[2024-10-21 08:33] VITALS: BP 112/67; PULSE 72
[2024-10-21] MEDS: DOCUSATE SODIUM 100 MG CAPSULE PO ×2 (08:33→21:34)
--- NOTE | 2024-10-21 09:19 | PM.OBPN ---
OB - PN: Subj Subjective Patient comments: no complaints, pain well controlled and flatus present infant status: doing well and well feeding status: exclusively Exam Constitutional Vital Signs, click to edit/add: Last Vital Signs Temp 98.1 F 10/21/24 05:13 Pulse 72 10/21/24 08:33 Resp 18 10/20/24 20:06 BP 112/67 10/21/24 08:33 Pulse Ox 98 10/20/24 20:06 O2 Del Method Room Air 10/20/24 20:00 Documenting provider has reviewed patient's vital signs: yes Common normals: no apparent distress, oriented x3, no limitations, healthy appearing, alert and well nourished General appearance: cooperative, comfortable and well kempt Orientation/consciousness: Yes awake HENMT Common normals: normocephalic and head/scalp atraumatic Eye Common normals: PERRL Pupil: accommodation reflex normal Neck & C-Spine Common normals: full ROM and supple Respiratory Common normals: normal respiratory effort Cardio Common normals: regular rate and regular rhythm GI Common normals: Normal to inspection, nondistended, normoactive bowel sounds present, soft to palpation and non-tender Common normals: no CVA tenderness Back & Pelvis Common normals: no thoracic nor lumbar tenderness Extremity Common normals: normal to inspection, full ROM and no calf tenderness Neuro Common normals: oriented x3, CN's II-XII intact bilaterally, moves all extremities, no focal motor deficits and no sensory deficits noted Psych Common normals: mental status grossly normal, thought process normal, cooperative, affect normal and speech normal Results Labs Labs: Short CBC 10/21/24 Range/Units 06:30 WBC 18.1 H (4.0-11.0) 10^3/uL Hgb 10.5 L (12.0-16.0) g/dL Hct 30.6 L (36.0-48.0) % Plt Count 181 (150-450) 10^3/uL Urinary Catheter Management Urinary Catheter Management Urethral: Cath placed during this visit: yes, but has since been removed by the nurse Insertion date: 10/20/24 Insertion time: 07:57 Removal date: 10/20/24 Removal time: 22:30 OB - PN: A/P Assessment and Plan (1) S/P repeat low transverse : Assessment and Plan: VSS NORMAL, CLINICAL EXAM NONFOCAL, AMBULATING, ELIMINATING AND EATING NORMALLY, BREAST FEEDING Plan ROUTINE POST OP POST CS CARE Plan - day: 1 Plan: routine postop care Time Spent with Patient Time: Total time spent is greater than 50% in coordination of care (as documented) at patient's floor/unit and/or counseling patient: Total time spent with greater than 50% in coordination of care (as documented) at patient's floor/unit and/or counseling patient: less than 15 minutes
[2024-10-21] MEDS: OXYCODONE HCL 5 MG TABLET PO (13:48)
[2024-10-21 15:45] VITALS: BP 108/51; PULSE 66; TEMP 36.6
[2024-10-21] MEDS: SIMETHICONE 80 MG TAB.CHEW PO (15:46)
[2024-10-21] MEDS: ENOXAPARIN SODIUM 40 MG/0.4 ML SYRINGE SUBQ (21:34)
[2024-10-21 23:45] VITALS: BP 113/57; PULSE 74; TEMP 37
[2024-10-22] MEDS: IBUPROFEN 400 MG TABLET 800 MG PO ×2 (03:42→09:24)
[2024-10-22] MEDS: DOCUSATE SODIUM 100 MG CAPSULE PO (09:24)
[2024-10-22 09:27] VITALS: BP 118/66; PULSE 68
--- NOTE | 2024-10-22 10:21 | PM.OBDS ---
DS: Providers Provider Date of admission: 10/20/24 09:57 Primary care physician: ELEANOR WILEY Admitting clinician: Manuel Lee Attending physician on discharge: Bety Lucero Anticipated date of discharge: 10/22/24 DS: Diagnosis Discharge Diagnosis (1) S/P repeat low transverse : Assessment and plan: normal clinical exam and VSS, asking for discharge Plan discharge home, instructions given, stated understanding, follow up appointments to be arranged for upcoming weeks for mom and baby OB - DS: Summary Hospital Course Hospital Course: uncomplicated Time spent discussing smoking cessation with patient: 3 to 10 minutes Peripartum Data - Procedures: Procedures Operation Date: 10/20/24 07:30 Actual Procedure Side Surgeon p with delivery of viable baby girl Not Applicable Manuel Lee DO Peripartum Data - Vaginal Delivery Procedures: Procedures Operation Date: 10/20/24 07:30 Actual Procedure Side Surgeon p with delivery of viable baby girl Not Applicable Manuel Lee DO Complications complications: none Infant Delivery method: section Gender: female Discharge plan: home Status at Discharge Cognitive/behavioral status at discharge: WNL Functional status at discharge: independent ambulation Overall status at discharge: patient is progressing back to baseline Time Spent with Patient Time attestation: Total time spent providing and/or coordinating discharge services: Time spent: less than 30 minutes Exam Narrative Exam Narrative: VOICING NO COMPLAINTS Constitutional Vital Signs, click to edit/add: Last Vital Signs Temp 98.6 F 10/21/24 23:45 Pulse 68 10/22/24 09:27 Resp 16 10/22/24 09:33 BP 118/66 10/22/24 09:27 Pulse Ox 98 10/20/24 20:06 O2 Del Method Room Air 10/22/24 09:33 Documenting provider has reviewed patient's vital signs: yes Common normals: no apparent distress, average body habitus, oriented x3, no limitations, healthy appearing, alert and well nourished HENMT Common normals: normocephalic and head/scalp atraumatic Eye Common normals: PERRL Pupil: accommodation reflex normal Neck & C-Spine Common normals: full ROM and supple Respiratory Common normals: normal respiratory effort Auscultation: clear to auscultation bilaterally Cardio Common normals: regular rate and regular rhythm GI Common normals: Normal to inspection, nondistended, normoactive bowel sounds present, soft to palpation and non-tender Common normals: no CVA tenderness Back & Pelvis Common normals: no thoracic nor lumbar tenderness Extremity Common normals: normal to inspection, full ROM and no calf tenderness Neuro Common normals: CN's II-XII intact bilaterally, moves all extremities, no focal motor deficits and no sensory deficits noted Motor exam: strength 5/5 throughout Psych Common normals: mental status grossly normal, thought process normal, cooperative, affect normal, speech normal and activity/motor behavior normal Discharge Plan Discharge Disposition: Home, Self-Care Condition: Good Assessment: CONDITION GOOD, BREAST FEEDING, NO MEDICAL ISSUES, APPROPRIATE FOR DISCHARGE Plan of Treatment: DISCHARGE Activity: resume usual activities as tolerated Activity Detail: WALKING ONLY EXERCISE FOR SIX WEEKS, MAY CLIMB STAIRS, ONLY LIFT BABY SIX WEEKS, NO SEX SIX WEEKS, NO DRIVING 4 WEEKS Diet: regular diet Print Language: Divehi Patient Instructions: (DC) Activity Restrictions/Additional Instructions: STATED ABOVE Forms: Portal Instructions Follow Up Appointments: NEEDS TO HAVE INCISION CHECK WITHIN WEEK WITH DR. LEE, BABY NEEDS FOLLOW UP WITHIN WEEK FOR WEIGHT CHECK Discharge location: HOME
[2024-10-22] MEDS: ACETAMINOPHEN 500 MG TABLET 1000 MG PO (11:53)
== END 2024-10-22 12:05 | disposition home or self-care (01) | DRG 788 ==
PROVIDERS: Admitting Provider Obstetrics & Gynecology; PCP Family Medicine; Visit Provider Obstetrics & Gynecology
PROC: 10D00Z1 Extraction of Products of Conception, Low, Open Approach (ICD-10-PCS; CPT 59514; principal; 2024-10-20 07:30)
DX: O34.211 Maternal care for low transverse scar from previous cesarean delivery (principal); Z37.0 Single live birth; Z3A.39 39 weeks gestation of pregnancy
CPT/HCPCS: 36415; 51702; 64488; 80307; 85025; 86850; 86900; 86901; 94667; 94668; J0131; J0665; J0690; J1100; J1650; J1885; J2274; J2405; J2590; J2765